=== PATIENT | male | born 1940 | race Caucasian/White ===

== ENCOUNTER 2016-12-01 07:50 | Emergency (ER) | payer MEDICARE ==
[~2016-12-01] VITALS: Ht 180.3 cm; Wt 80.0 kg
[~2016-12-01 07:50] MED LIST: ASPI325T PO
[2016-12-01 07:52] VITALS: BP 169/74; PULSE 52; RESP 20; TEMP 97.7; O2SAT 98
[2016-12-01] MEDS ORDERED: LOSA25TA PO (08:08)
[2016-12-01] MEDS ORDERED: ASPI325T PO (08:08)
[2016-12-01] MEDS ORDERED: ALPR.5 PO (08:08)
[2016-12-01] MEDS ORDERED: ARIC23TA PO (08:08)
[2016-12-01] MEDS ORDERED: RED0.25P (08:08)
[2016-12-01 09:00] VITALS: BP 119/69; PULSE 50; RESP 16; O2SAT 96
[2016-12-01 09:00] LABS: AUTOMATED NEUTROPHIL # 2.8 TH/MM3 (1.8-7.7); BASOPHIL % 0.6 % (0.0-2.0); EOSINOPHIL # 0.2 TH/MM3 (0-0.4); EOSINOPHIL % 4.8 % (0.0-4.0); HEMATOCRIT 37.7 % (39.0-51.0); HEMO FLAGS DIFF FINAL; LYMPH % 24.6 % (9.0-44.0); LYMPHOCYTE # 1.1 TH/MM3 (1.0-4.8); MEAN CELL VOLUME 90.5 FL (80.0-100.0); MEAN CORPUSCULAR HGB CONC 34.2 % (32.0-36.0); MONO % 7.7 % (0.0-8.0); NEUT % 62.3 % (16.0-70.0); PLATELET COUNT 154 TH/MM3 (150-450); RED BLOOD COUNT 4.17 MIL/MM3 (4.50-5.90); RED CELL DISTRIBUTION WIDTH 14.2 % (11.6-17.2); WHITE BLOOD COUNT 4.5 TH/MM3 (4.0-11.0)
[2016-12-01 09:13] LABS: ANION GAP 6 MEQ/L (5-15); AST (GOT) 19 U/L (15-37); BICARBONATE 24.7 MEQ/L (21.0-32.0); BLOOD UREA NITROGEN 21 MG/DL (7-18); CHLORIDE 110 MEQ/L (98-107); GLOMERULAR FILTRATION RATE 42 ML/MIN (>89); POTASSIUM 4.4 MEQ/L (3.5-5.1); SODIUM (NA) 141 MEQ/L (136-145)
[2016-12-01 09:14] LABS: ALT (GPT) 25 U/L (12-78)
[2016-12-01 09:16] LABS: ALKALINE PHOSPHATASE 81 U/L (45-117); TOTAL BILIRUBIN ADULT 0.6 MG/DL (0.2-1.0)
--- NOTE | 2016-12-01 09:16 | RADRPT ---
EXAM DATE/TIME: 12/01/2016 09:02 [facility] COMPARISON: CT NEEDLE BIOPSY ABDOMEN, July 20, 2009, 10:14. INDICATIONS : Left flank pain today. ORAL CONTRAST: No oral contrast ingested. RADIATION DOSE: 14.74 CTDIvol (mGy) MEDICAL HISTORY : ureteral mass, lymphoma, cardiovascular disease SURGICAL HISTORY : Cholecystectomy. ureteral stent ENCOUNTER: Initial ACUITY: 1 day PAIN SCALE: 7/10 LOCATION: Left flank TECHNIQUE: Volumetric scanning of the abdomen and pelvis was performed. Using automated exposure control and ad justment of the mA and/or kV according to patient size, radiation dose was kept as low as reasonably achievable to obtain optimal diagnostic quality images. DICOM format image data is available electro nically for review and comparison. FINDINGS: Numerous calcified granulomas in spleen are identified. A calcified granuloma in the liver is also no yuli. Cholecystectomy clips are present. The pancreas, adrenal glands, right kidney, left kidney unrem arkable. Urinary bladder unremarkable. Prostate is unremarkable. There is extensive diverticulosis of the sigmoid colon and descending colon. Diverticuli are also seen in the transverse and ascending co seth. Appendix is normal. There is no adenopathy or aneurysm. Atherosclerotic calcifications of the ao rta and iliac vessels are noted. Lung bases are clear. Osseous structures are intact. CONCLUSION: 1. Atherosclerosis. 2. Diverticulosis. 3. Calcified granulomas in the spleen. Norris Ordaz MD on December 01, 2016 at 9:11 Board Certified Radiologist. This report was verified electronically.
[2016-12-01 10:15] LABS: BLOOD, URINE NEG (NEG); GLUCOSE,URINE NEG (NEG); KETONE, URINE NEG (NEG); MUCUS URINE FEW /lpf (OCC); NITRITE,URINE NEG (NEG); URINE COLOR YELLOW (YELLW/STRAW)
[2016-12-01 10:16] LABS: COMMENT (UR) CULT NOT INDICATED; CULTURE IF INDICATED CULT NOT INDICATED
--- NOTE | 2016-12-01 10:21 | PD ---
HPI Chief Complaint: Flank/Kidney Pain Time Seen by Provider: 08:32 Travel History International Travel<30 days: No Contact w/Intl Traveler<30days: No Traveled to known affect area: No History of Present Illness HPI This is a 76-year-old male who has a history of follicular lymphoma who presents to the emergency department with left-sided flank pain that woke him up from sleep this morning at around 4 AM, constant, moderate severity, with no associated nausea, vomiting, fevers or chills. He denies any dysuria. She is currently in remission from his lymphoma but follows with Dr. Madden periodically. He's been struggling with vertigo recently and thought that he has Mnire's disease. His also reports he's been a little more confused over the past month. They had a CT scan performed as an outpatient which was reassuring. The patient reports that this flank pain feels similar to when he had lymphoma and a lymph node was compressing his ureter leading to hydronephrosis. PFSH Past Medical History Cancer: Yes (LYMPHOMA) Cardiovascular Problems: Yes (PATENT DUCTUS ARTERIOSUS) Chemotherapy: Yes (1ST TREATMENT 08/15/2009) Diabetes: No Diminished Hearing: No Glaucoma: No Hepatitis: Yes (HEP A B C ANTIBODIES) Hiatal Hernia: No Hypertension: No Medical other: Yes (DIVERTICULITIS) Respiratory: Yes (SINUS PROBS) Thyroid Disease: No Influenza Vaccination: Yes Past Surgical History Abdominal Surgery: No Body Medical Devices: INFUSAPORT INSERTED 08/11/09 Cardiac Surgery: No Cholecystectomy: Yes Ear Surgery: No Endocrine Surgery: No Eye Surgery: No Genitourinary Surgery: Yes (URETER STENT;REMOVED) Gynecologic Surgery: No Neurologic Surgery: No Oral Surgery: No Pacemaker: No Thoracic Surgery: No Tonsillectomy: Yes Other Surgery: Yes (MED PORT PLACEMENT;REMOVED) Social History Alcohol Use: Yes (SOCIAL) Tobacco Use: No Substance Use: No Allergies-Medications (Allergen,Severity, Reaction): Coded Allergies: No Known Allergies (Verified , 12/01/16) Reported Meds & Prescriptions Reported Meds & Active Scripts Active Reported Red Yeast Rice (Red Yeast Rice Extract) Unknown Strength Pow Unknown Dose Aricept (Donepezil) 23 Mg Tab 23 Mg PO HS Do not split, crushed or chewed. Xanax (Alprazolam) 0.5 Mg Tab 0.5 Mg PO HS Losartan (Losartan Potassium) Unknown Strength Tab Unknown Dose PO HS Aspirin 325 Mg Tab 325 Mg PO DAILY Review of Systems Except as stated in HPI: all other systems reviewed are Neg Physical Exam Narrative GENERAL:Well appearing, no acute distress SKIN: Focused skin assessment warm and dry. HEAD: Atraumatic. Normocephalic. EYES: Pupils equal and round. No injection or drainage. ENT: Moist mucous membranes NECK: Trachea midline. CARDIOVASCULAR: Regular rate and rhythm. No murmur appreciated. RESPIRATORY: Clear to auscultation. Breath sounds equal bilaterally. GASTROINTESTINAL: Abdomen soft, non-tender, nondistended. MUSCULOSKELETAL: No obvious deformities. NEUROLOGICAL: Awake and alert, does seem somewhat confused. No obvious cranial nerve deficits. Moving all extremities. PSYCHIATRIC: Appropriate mood and affect; insight and judgment normal. Data Data Last Documented VS Vital Signs Date Time Temp Pulse Resp B/P Pulse Ox O2 Delivery O2 Flow Rate FiO2 12/01/16 07:52 97.7 52 20 169/74 98 Room Air Orders Complete Blood Count With Diff (12/01/16 08:42) Comprehensive Metabolic Panel (12/01/16 08:42) Ct Abd/Pel W/O Iv Contrast (12/01/16 ) Urinalysis - C+S If Indicated (12/01/16 08:42) Labs Laboratory Tests Test 12/01/16 12/01/16 08:15 09:40 White Blood Count 4.5 TH/MM3 Red Blood Count 4.17 MIL/MM3 Hemoglobin 12.9 GM/DL Hematocrit 37.7 % Mean Corpuscular Volume 90.5 FL Mean Corpuscular Hemoglobin 31.0 PG Mean Corpuscular Hemoglobin 34.2 % Concent Red Cell Distribution Width 14.2 % Platelet Count 154 TH/MM3 Mean Platelet Volume 8.1 FL Neutrophils (%) (Auto) 62.3 % Lymphocytes (%) (Auto) 24.6 % Monocytes (%) (Auto) 7.7 % Eosinophils (%) (Auto) 4.8 % Basophils (%) (Auto) 0.6 % Neutrophils # (Auto) 2.8 TH/MM3 Lymphocytes # (Auto) 1.1 TH/MM3 Monocytes # (Auto) 0.3 TH/MM3 Eosinophils # (Auto) 0.2 TH/MM3 Basophils # (Auto) 0.0 TH/MM3 CBC Comment DIFF FINAL Differential Comment Sodium Level 141 MEQ/L Potassium Level 4.4 MEQ/L Chloride Level 110 MEQ/L Carbon Dioxide Level 24.7 MEQ/L Anion Gap 6 MEQ/L Blood Urea Nitrogen 21 MG/DL Creatinine 1.62 MG/DL Estimat Glomerular Filtration 42 ML/MIN Rate Random Glucose 90 MG/DL Calcium Level 8.7 MG/DL Total Bilirubin 0.6 MG/DL Aspartate Amino Transf 19 U/L (AST/SGOT) Alanine Aminotransferase 25 U/L (ALT/SGPT) Alkaline Phosphatase 81 U/L Total Protein 6.4 GM/DL Albumin 3.2 GM/DL Urine Color YELLOW Urine Turbidity CLEAR Urine pH 5.0 Urine Specific Scott 1.016 Urine Protein NEG mg/dL Urine Glucose (UA) NEG mg/dL Urine Ketones NEG mg/dL Urine Occult Blood NEG Urine Nitrite NEG Urine Bilirubin NEG Urine Urobilinogen LESS THAN 2.0 MG/DL Urine Leukocyte Esterase NEG Urine RBC 1 /hpf Urine WBC LESS THAN 1 /hpf Urine Mucus FEW /lpf Microscopic Urinalysis Comment CULT NOT INDICATED MDM Medical Decision Making Medical Screen Exam Complete: Yes Emergency Medical Condition: Yes Interpretation(s) afebrile, no tachycardia, hypertensin no leukocytosis anemia renal insufficiency urinalysis: no infection Last 24 hours Impressions Abdomen/Pelvis CT 12/01/16 0000 Signed Impressions: Service Date/Time: Thursday, December 01, 2016 09:02 - CONCLUSION: 1. Atherosclerosis. 2. Diverticulosis. 3. Calcified granulomas in the spleen. Norris Ordaz MD Differential Diagnosis Hydronephrosis, obstructive uropathy, nephrolithiasis, pyelonephritis, urinary tract infection Narrative Course This is a 76-year-old male who has a history of lymphoma who presents to the emergency department with left-sided flank pain that started this morning. He says it feels similar to when he had an obstructive lymph node affecting his left kidney. CT scan was obtained which demonstrates no hydronephrosis. Labs are all reassuring and urinalysis is negative for infection. He currently is without pain. He does seem a little bit confused. I expressed concern about this to his . She says this been going on for a while and they have a scheduled appointment with Dr. Madden on the of this month. I encouraged her to attend this appointment and I told him I think he needs an outpatient MRI. I offered admission for an MRI but they feel comfortable following up as an outpatient. I think this is reasonable. Patient was discharged home. Diagnosis Primary Impression: Flank pain Patient Instructions: General Instructions Additional Instructions: If you develop fever, persistent vomiting, back pain, or inability to eat return to the emergency department as your urine infection may have progressed to a kidney infection. It's very important to follow-up with Dr. Madden at your scheduled appointment. Med/Other Pt SpecificInfo: No Change to Meds Disposition: 01 DISCHARGE HOME Condition: Stable Yolis Garcia MD Dec 01, 2016 10:21
[2016-12-01 10:26] VITALS: BP 115/68; PULSE 50; RESP 18; O2SAT 96
== END 2016-12-01 10:37 | disposition home or self-care (01) ==
LOC: NEPE 07:50
DX: R10.9 Unspecified abdominal pain (principal)
CPT/HCPCS: 74176; 80053; 81001; 85025; 99284

== ENCOUNTER 2017-05-23 04:55 | Observation (INO) | payer MEDICARE ==
[2017-05-23] VITALS (8 sets, daily range): BP systolic 136–197; BP diastolic 77–101; PULSE 48–68; RESP 16–20; TEMP 97.4–98.2; O2SAT 96–98
[~2017-05-23] VITALS: Ht 180.3 cm; Wt 80.0 kg
[~2017-05-23 04:55] MED LIST changes: +ALPR.5 PO; +ARIC23TA PO; +ASPI-183 PO; -ASPI325T PO; +LOSA25TA PO; +RED0.25P
--- NOTE | 2017-05-23 05:10 | PD ---
HPI Chief Complaint: Chest Pain Time Seen by Provider: 05:05 Travel History International Travel<30 days: No Contact w/Intl Traveler<30days: No Traveled to known affect area: No History of Present Illness HPI The patient is a 77-year-old male who presents to the emergency department via EMS for chest pain. The patient states she was awakened by left- sided chest pain at approximately 4 AM. The chest pain was sharp, constant, nonradiating, and associated with diaphoresis. The patient denied any shortness of breath, nausea, or vomiting. The patient does have a history of borderline hyperlipidemia, denies any history of hypertension, diabetes, tobacco abuse, or CAD. The patient does state he had a previous stress test approximately 4-5 years ago which was negative per his report. He denies any history of cardiac catheterization or stent placement. The patient denies any fever, chills, sweats, cough, or abdominal pain. The patient states his pain improved after he was administered aspirin and nitroglycerin by EMS. The patient's primary physician is Dr. Mukund Luevano. The patient does have a history of lymphoma, unknown type, that was treated by Dr. Madden, is currently in remission. He denies any exertional symptoms. Symptoms are moderate, waking him from sleep, and were alleviated with aspirin and nitroglycerin. PFSH Past Medical History Cancer: Yes (LYMPHOMA) Cardiovascular Problems: Yes (PATENT DUCTUS ARTERIOSUS) Chemotherapy: Yes (1ST TREATMENT 08/15/2009) Diabetes: No Diminished Hearing: No Glaucoma: No Hepatitis: Yes (HEP A B C ANTIBODIES) Hiatal Hernia: No Hypertension: No Respiratory: Yes (SINUS PROBS) Thyroid Disease: No Past Surgical History Abdominal Surgery: No Body Medical Devices: INFUSAPORT INSERTED 08/11/09 Cardiac Surgery: No Cholecystectomy: Yes Ear Surgery: No Endocrine Surgery: No Eye Surgery: No Genitourinary Surgery: Yes (URETER STENT;REMOVED) Gynecologic Surgery: No Neurologic Surgery: No Oral Surgery: No Pacemaker: No Thoracic Surgery: No Tonsillectomy: Yes Other Surgery: Yes (MED PORT PLACEMENT;REMOVED) Social History Alcohol Use: Yes (SOCIAL) Tobacco Use: No Substance Use: No Allergies-Medications (Allergen,Severity, Reaction): Coded Allergies: No Known Allergies (Verified Adverse Reaction, Unknown, 05/23/17) Reported Meds & Prescriptions Reported Meds & Active Scripts Active Reported Red Yeast Rice (Red Yeast Rice Extract) Unknown Strength Pow Unknown Dose Aricept (Donepezil) 23 Mg Tab 23 Mg PO HS Do not split, crushed or chewed. Xanax (Alprazolam) 0.5 Mg Tab 0.5 Mg PO HS Aspirin 325 Mg Tab 325 Mg PO DAILY Review of Systems Except as stated in HPI: all other systems reviewed are Neg General / Constitutional: No: Fever, Chills HENT: No: Lightheadedness Cardiovascular: Positive: Chest Pain or Discomfort, Diaphoresis, No: Dyspnea on exertion Respiratory: No: Shortness of Breath Gastrointestinal: No: Nausea, Vomiting Musculoskeletal: No: Weakness Neurologic: No: Dizziness Physical Exam Narrative GENERAL: Awake, alert, pleasant 77-year-old male who appears his stated age and is in no acute respiratory distress. SKIN: Focused skin assessment warm/dry. HEAD: Atraumatic. Normocephalic. EYES: Pupils equal and round. No scleral icterus. No injection or drainage. ENT: No nasal bleeding or discharge. Mucous membranes pink and moist. NECK: Trachea midline. No JVD. CARDIOVASCULAR: Regular, bradycardic with a heart rate in the 50s. No murmur appreciated. Palpation the chest wall does not reproduce symptoms. RESPIRATORY: No accessory muscle use. Clear to auscultation. Breath sounds equal bilaterally. GASTROINTESTINAL: Abdomen soft, non-tender, nondistended. No epigastric tenderness. No guarding or rigidity. MUSCULOSKELETAL: No obvious deformities. No clubbing. No cyanosis. No edema. NEUROLOGICAL: Awake and alert. No obvious cranial nerve deficits. Motor grossly within normal limits. Normal speech. Alert and oriented 4. Follows as without difficulty. PSYCHIATRIC: Appropriate mood and affect; insight and judgment normal. Data Data Last Documented VS Vital Signs Date Time Temp Pulse Resp B/P (MAP) Pulse Ox O2 Delivery O2 Flow Rate FiO2 05/23/17 05:13 47 16 96 Room Air 05/23/17 05:10 155/92 (113) 163/96 (118) 05/23/17 05:04 98.0 Orders Orders Electrocardiogram (05/23/17 05:05) Ckmb (Isoenzyme) Profile (05/23/17 05:05) Complete Blood Count With Diff (05/23/17 05:05) Comprehensive Metabolic Panel (05/23/17 05:05) Magnesium (Mg) (05/23/17 05:05) Prothrombin Time / Inr (Pt) (05/23/17 05:05) Act Partial Throm Time (Ptt) (05/23/17 05:05) Troponin I (05/23/17 05:05) Lipase (05/23/17 05:05) Chest, Single Ap (05/23/17 05:05) Ecg Monitoring (05/23/17 05:05) Bilateral Bp Monitoring (05/23/17 05:05) Iv Access Insert/Monitor (05/23/17 05:05) Oximetry (05/23/17 05:05) Oxygen Administration (05/23/17 05:05) Sodium Chloride 0.9% Flush (Ns Flush) (05/23/17 05:15) Labs Laboratory Tests Test 05/23/17 05:15 White Blood Count 3.9 TH/MM3 Red Blood Count 4.08 MIL/MM3 Hemoglobin 12.4 GM/DL Hematocrit 37.0 % Mean Corpuscular Volume 90.8 FL Mean Corpuscular Hemoglobin 30.4 PG Mean Corpuscular Hemoglobin Concent 33.5 % Red Cell Distribution Width 14.3 % Platelet Count 121 TH/MM3 Mean Platelet Volume 7.6 FL Neutrophils (%) (Auto) 53.3 % Lymphocytes (%) (Auto) 28.5 % Monocytes (%) (Auto) 11.2 % Eosinophils (%) (Auto) 6.3 % Basophils (%) (Auto) 0.7 % Neutrophils # (Auto) 2.1 TH/MM3 Lymphocytes # (Auto) 1.1 TH/MM3 Monocytes # (Auto) 0.4 TH/MM3 Eosinophils # (Auto) 0.2 TH/MM3 Basophils # (Auto) 0.0 TH/MM3 CBC Comment DIFF FINAL Differential Comment Prothrombin Time 10.2 SEC Prothromb Time International Ratio 1.0 RATIO Activated Partial Thromboplast Time 25.2 SEC Blood Urea Nitrogen 25 MG/DL Creatinine 1.63 MG/DL Random Glucose 88 MG/DL Total Protein 5.8 GM/DL Albumin 3.0 GM/DL Calcium Level 8.1 MG/DL Magnesium Level 2.1 MG/DL Alkaline Phosphatase 60 U/L Aspartate Amino Transf (AST/SGOT) 15 U/L Alanine Aminotransferase (ALT/SGPT) 28 U/L Total Bilirubin 0.3 MG/DL Sodium Level 142 MEQ/L Potassium Level 3.8 MEQ/L Chloride Level 111 MEQ/L Carbon Dioxide Level 23.6 MEQ/L Anion Gap 7 MEQ/L Estimat Glomerular Filtration Rate 41 ML/MIN Total Creatine Kinase 63 U/L Troponin I LESS THAN 0.02 NG/ML Lipase 132 U/L Exceptions Acute Myocardial Infarction ASA Not Given on Arrival: Already Given by EMS MDM Medical Decision Making Medical Screen Exam Complete: Yes Emergency Medical Condition: Yes Medical Record Reviewed: Yes Interpretation(s) EKG reveals sinus bradycardia with a heart rate of 45. No ischemic changes noted. Laboratory Tests Test 05/23/17 05:15 White Blood Count 3.9 TH/MM3 Red Blood Count 4.08 MIL/MM3 Hemoglobin 12.4 GM/DL Hematocrit 37.0 % Mean Corpuscular Volume 90.8 FL Mean Corpuscular Hemoglobin 30.4 PG Mean Corpuscular Hemoglobin Concent 33.5 % Red Cell Distribution Width 14.3 % Platelet Count 121 TH/MM3 Mean Platelet Volume 7.6 FL Neutrophils (%) (Auto) 53.3 % Lymphocytes (%) (Auto) 28.5 % Monocytes (%) (Auto) 11.2 % Eosinophils (%) (Auto) 6.3 % Basophils (%) (Auto) 0.7 % Neutrophils # (Auto) 2.1 TH/MM3 Lymphocytes # (Auto) 1.1 TH/MM3 Monocytes # (Auto) 0.4 TH/MM3 Eosinophils # (Auto) 0.2 TH/MM3 Basophils # (Auto) 0.0 TH/MM3 CBC Comment DIFF FINAL Differential Comment Prothrombin Time 10.2 SEC Prothromb Time International Ratio 1.0 RATIO Activated Partial Thromboplast Time 25.2 SEC Blood Urea Nitrogen 25 MG/DL Creatinine 1.63 MG/DL Random Glucose 88 MG/DL Total Protein 5.8 GM/DL Albumin 3.0 GM/DL Calcium Level 8.1 MG/DL Magnesium Level 2.1 MG/DL Alkaline Phosphatase 60 U/L Aspartate Amino Transf (AST/SGOT) 15 U/L Alanine Aminotransferase (ALT/SGPT) 28 U/L Total Bilirubin 0.3 MG/DL Sodium Level 142 MEQ/L Potassium Level 3.8 MEQ/L Chloride Level 111 MEQ/L Carbon Dioxide Level 23.6 MEQ/L Anion Gap 7 MEQ/L Estimat Glomerular Filtration Rate 41 ML/MIN Total Creatine Kinase 63 U/L Troponin I LESS THAN 0.02 NG/ML Lipase 132 U/L Chest x-ray unremarkable Differential Diagnosis Differential diagnoses includes ACS, STEMI, pleurisy, pneumonia, pleural effusion, pulmonary embolism, costochondritis, neuralgia. Narrative Course IV was established, labs are drawn and sent, and the patient was placed on cardiac telemetry monitoring and continuous pulse oximetry monitoring. EKG was ordered and interpreted. Chest x-ray was obtained. The patient received aspirin and nitroglycerin prior to arrival, was chest pain-free upon arrival. Chest x-rays unremarkable. Initial troponin is less than 0.02. Patient does have several risk factors, male, age 77, history of borderline hyperlipidemia. The patient's chest pain did improve with aspirin and nitroglycerin, he will be a 23 hour observation to the chest pain Center. The patient is comfortable with this plan of care and disposition. Physician Communication Physician Communication The patient will be 23 hour observation to the chest pain center for serial cardiac enzymes and further evaluation by cardiology for possible stress test. Diagnosis Primary Impression: Chest pain Qualified Codes: R07.9 - Chest pain, unspecified Admitting Information Admitting Physician Requests: Observation Condition: Stable Omar Gomez MD May 23, 2017 05:10
[2017-05-23] MEDS ORDERED: SODIUM CHLORIDE 0.9% FLUSH 10 ML FLUSH IVF PRN (05:15)
[2017-05-23 05:25] LABS: AUTOMATED NEUTROPHIL # 2.1 TH/MM3 (1.8-7.7); BASOPHIL % 0.7 % (0.0-2.0); EOSINOPHIL # 0.2 TH/MM3 (0-0.4); EOSINOPHIL % 6.3 % (0.0-4.0); HEMOGLOBIN 12.4 GM/DL (13.0-17.0); LYMPH % 28.5 % (9.0-44.0); LYMPHOCYTE # 1.1 TH/MM3 (1.0-4.8); MEAN CELL VOLUME 90.8 FL (80.0-100.0); MEAN CORPUSCULAR HEMOGLOBIN 30.4 PG (27.0-34.0); MEAN CORPUSCULAR HGB CONC 33.5 % (32.0-36.0); MEAN PLATELET VOLUME 7.6 FL (7.0-11.0); MONO % 11.2 % (0.0-8.0); MONOCYTE # 0.4 TH/MM3 (0-0.9); NEUT % 53.3 % (16.0-70.0); PLATELET COUNT 121 TH/MM3 (150-450); RED BLOOD COUNT 4.08 MIL/MM3 (4.50-5.90); RED CELL DISTRIBUTION WIDTH 14.3 % (11.6-17.2); WHITE BLOOD COUNT 3.9 TH/MM3 (4.0-11.0)
[2017-05-23 05:35] LABS: PROTHROMBIN TIME - PATIENT 10.2 SEC (9.8-11.6)
[2017-05-23 05:43] LABS: ALT (GPT) 28 U/L (12-78); AST (GOT) 15 U/L (15-37); BICARBONATE 23.6 MEQ/L (21.0-32.0); BLOOD UREA NITROGEN 25 MG/DL (7-18); CALCIUM 8.1 MG/DL (8.5-10.1); CHLORIDE 111 MEQ/L (98-107); CREATININE 1.63 MG/DL (0.60-1.30); GLOMERULAR FILTRATION RATE 41 ML/MIN (>89); GLUCOSE,RANDOM 88 MG/DL (74-106); LIPASE 132 U/L (73-393); MAGNESIUM 2.1 MG/DL (1.5-2.5); SODIUM (NA) 142 MEQ/L (136-145)
[2017-05-23 05:47] LABS: ALKALINE PHOSPHATASE 60 U/L (45-117); TOTAL BILIRUBIN ADULT 0.3 MG/DL (0.2-1.0); TOTAL PROTEIN 5.8 GM/DL (6.4-8.2); TROPONIN I LESS THAN 0.02 NG/ML (0.02-0.05)
[2017-05-23] MEDS ORDERED: ACETAMINOPHEN 500 MG CPLT PO PRN (06:00)
[2017-05-23] MEDS ORDERED: MORPHINE SULFATE 2 MG/ML INJ IV PUSH PRN (06:00)
[2017-05-23] MEDS ORDERED: ONDANSETRON HCL 4 MG/2 ML VIAL IV PUSH PRN (06:00)
[2017-05-23] MEDS ORDERED: SODIUM CHLORIDE 0.9% FLUSH 10 ML FLUSH IV FLUSH PRN (06:00)
[2017-05-23] MEDS ORDERED: ACETAMINOPHEN/HYDROcodone 325 MG/7.5 MG TAB PO PRN (06:00)
[2017-05-23] MEDS ORDERED: NITROGLYCERIN 0.4 MG SL 25 TABS/BTL SL PRN (06:00)
--- NOTE | 2017-05-23 06:33 | RADRPT ---
EXAM DATE/TIME: 05/23/2017 05:22 [facility] COMPARISON: CHEST PA & LAT, August 02, 2011, 9:43. INDICATIONS : Chest pain. MEDICAL HISTORY : ureteral mass, lymphoma, cardiovascular disease SURGICAL HISTORY : Cholecystectomy. ureteral stent ENCOUNTER: Initial ACUITY: 1 day PAIN SCORE: 8/10 LOCATION: Left chest FINDINGS: A single view of the chest demonstrates the lungs to be symmetrically aerated without evidence of mas s, infiltrate or effusion. The cardiomediastinal contours are unremarkable. Osseous structures are intact. CONCLUSION: No acute disease. Harley Mosqueda MD on May 23, 2017 at 6:30 Board Certified Radiologist. This report was verified electronically.
[2017-05-23] MEDS ORDERED: ASPIRIN 325 MG TAB PO SCH (09:00)
[2017-05-23] MEDS ORDERED: SODIUM CHLORIDE 0.9% FLUSH 10 ML FLUSH IV FLUSH SCH (09:00)
[2017-05-23 09:24] LABS: TROPONIN I LESS THAN 0.02 NG/ML (0.02-0.05)
[2017-05-23] MEDS ORDERED: DIVA500T3 PO (09:28)
[2017-05-23] MEDS ORDERED: DONE10TA7 PO (09:30)
[2017-05-23] MEDS ORDERED: THERTAB17 PO (09:31)
--- NOTE | 2017-05-23 09:31 | HHI.HP ---
[facility] Primary Care Physician Mukund Moody MD Chief Complaint Chest pain History of Present Illness This is a 37-year-old male that presents to ED via ambulance with history of hypertension, hyperlipidemia, chronic renal insufficiency, follicular lymphoma grade 1 and currently in remission with a complaint of being awoken at 4:00 this morning with a left-sided chest discomfort. Radiated down his left arm. He is diaphoretic. It is sharp. His worst pain is ever had. [facility] arrived within 20 minutes. The given subluminal nitroglycerin which seemed to help very quickly. Cannot say exactly how long the discomfort lasted. Denies history of CAD. Apparently had a stress test about 5 years ago and the really is not sure the results with states he never had a cardiac catheterization. He was placed on statin therapy but did not tolerate any other statins. Denies recent illness. Denies fevers or chills. Review of Systems General: Patient denies fevers, chills recent, and recent travel HEENT: Patient denies headache, sore throat, difficulty swallowing. Cardiovascular: Has the chest discomfort as mentioned above. Denies sensation of heart beating rapidly or irregularly. No syncope. He was diaphoretic. Respiratory: Denies shortness of breath or inspirational chest discomfort. Denies coughing wheezing or hemoptysis. GI: Patient denies nausea, vomiting, diarrhea, abdominal pain, bloody stools. Musculoskeletal: Patient denies joint pain or edema. Denies calf pain or edema. Neurovascular: Patient denies numbness, tingling, weakness in extremities. Denies headache. Endocrine: Denies polyuria and polydipsia. Hematologic: Denies easy bruising. Skin: Denies rash or itching. Past Family Social History Allergies: Coded Allergies: No Known Allergies (Verified Allergy, Unknown, 05/23/17) Past Medical History Hypertension however currently not taking medication. Hyperlipidemia and does not tolerate statin. He is on red yeast rice. Chronic renal insufficiency, history of follicular lymphoma grade 1 and is now on remission. Denies diabetes and known CAD. Past Surgical History Tonsillectomy. Ureter stent and then subsequently removed. Reported Medications Reported Meds & Active Scripts Active Reported Red Yeast Rice (Red Yeast Rice Extract) Unknown Strength Pow Unknown Dose Aricept (Donepezil) 23 Mg Tab 23 Mg PO HS Do not split, crushed or chewed. Xanax (Alprazolam) 0.5 Mg Tab 0.5 Mg PO HS Aspirin 325 Mg Tab 325 Mg PO DAILY Active Ordered Medications Current Medications Medications (Trade) Dose Ordered Sig/Floyd Route Start Time Stop Time Status Last Admin (NS Flush) 2 ml UNSCH PRN IV FLUSH 05/23/17 06:00 (NS Flush) 2 ml BID IV FLUSH 05/23/17 09:00 05/23/17 08:27 (Tylenol) 500 mg Q4H PRN PO 05/23/17 06:00 (Garrison 7.5-325 Mg) 1 tab Q4H PRN PO 05/23/17 06:00 (Morphine Inj) 2 mg Q4H PRN IV PUSH 05/23/17 06:00 (Zofran Inj) 4 mg Q6H PRN IV PUSH 05/23/17 06:00 (Nitrostat Sl) 0.4 mg Q5M PRN SL 05/23/17 06:00 (Aspirin) 325 mg DAILY PO 05/23/17 09:00 05/23/17 08:27 Family History There is family history of CAD. Social History Doesn't smoke. Rare alcohol. Denies illicit drugs. Physical Exam Vital Signs Vital Signs Date Time Temp Pulse Resp B/P (MAP) Pulse Ox O2 Delivery O2 Flow Rate FiO2 05/23/17 07:21 98 21 05/23/17 06:42 97.4 48 16 154/86 (108) 98 05/23/17 06:22 05/23/17 06:04 98 21 05/23/17 05:13 47 16 96 Room Air 05/23/17 05:10 50 16 155/92 (113) 98 Room Air 163/96 (118) 05/23/17 05:07 98 Room Air 05/23/17 05:07 98 Room Air 05/23/17 05:04 98.0 52 18 169/101 (123) 97 Physical Exam GENERAL: This is a well-nourished, well-developed patient, in no apparent distress. Patient speaks in clear complete sentences. Patient is pleasant. HEENT: Head is atraumatic and normocephalic. Neck is supple without lymphadenopathy and trachea is midline. No JVD or carotid bruits. CARDIOVASCULAR: Regular rate and rhythm without murmurs, gallops, or rubs. RESPIRATORY: Clear to auscultation. Breath sounds equal bilaterally. No wheezes , rales, or rhonchi. Chest wall is nontender. No use of accessory muscles. GASTROINTESTINAL: Abdomen is nontender, nondistended. Abdomen soft. No obvious pulsatile mass or bruit. No CVA tenderness. Strong femoral pulses bilaterally. Normal bowel sounds in all quadrants. MUSCULOSKELETAL: Patient is moving upper and lower extremities freely. No calf tenderness or edema, no Homans sign. Strong pulses in upper and lower extremities. NEUROLOGICAL: Patient is alert and oriented. Cranial nerves 2-12 are grossly intact. No focal deficits and speech is clear. SKIN: No rash and turgor is normal. Laboratory Laboratory Tests Test 05/23/17 05:15 05/23/17 08:30 White Blood Count 3.9 Red Blood Count 4.08 Hemoglobin 12.4 Hematocrit 37.0 Mean Corpuscular Volume 90.8 Mean Corpuscular Hemoglobin 30.4 Mean Corpuscular Hemoglobin Concent 33.5 Red Cell Distribution Width 14.3 Platelet Count 121 Mean Platelet Volume 7.6 Neutrophils (%) (Auto) 53.3 Lymphocytes (%) (Auto) 28.5 Monocytes (%) (Auto) 11.2 Eosinophils (%) (Auto) 6.3 Basophils (%) (Auto) 0.7 Neutrophils # (Auto) 2.1 Lymphocytes # (Auto) 1.1 Monocytes # (Auto) 0.4 Eosinophils # (Auto) 0.2 Basophils # (Auto) 0.0 CBC Comment DIFF FINAL Differential Comment Prothrombin Time 10.2 Prothromb Time International Ratio 1.0 Activated Partial Thromboplast Time 25.2 Blood Urea Nitrogen 25 Creatinine 1.63 Random Glucose 88 Total Protein 5.8 Albumin 3.0 Calcium Level 8.1 Magnesium Level 2.1 Alkaline Phosphatase 60 Aspartate Amino Transf (AST/SGOT) 15 Alanine Aminotransferase (ALT/SGPT) 28 Total Bilirubin 0.3 Sodium Level 142 Potassium Level 3.8 Chloride Level 111 Carbon Dioxide Level 23.6 Anion Gap 7 Estimat Glomerular Filtration Rate 41 Total Creatine Kinase 63 Troponin I LESS THAN 0.02 Lipase 132 Result Diagram: 05/23/1715 05/23/17 0515 Imaging Last 48 hours Impressions Chest X-Ray 05/23/17 0736 Signed Impressions: Service Date/Time: Tuesday, May 23, 2017 05:22 - CONCLUSION: No acute disease. Harley Mosqueda MD Course EKGs: First 2 EKGs have sinus bradycardia rate of [address] segment depressions or elevations. Caprini VTE Risk Assessment Caprini VTE Risk Assessment: Mod/High Risk (score >= 2) Caprini Risk Assessment Model Point Value = 1 Point Value = 2 Point Value = 3 Point Value = 5 Age 41-60 Minor surgery BMI > 25 kg/m2 Swollen legs Varicose veins or History of unexplained or recurrent spontaneous Oral contraceptives or hormone replacement Sepsis (< 1 month) Serious lung disease, including pneumonia (< 1 month) Abnormal pulmonary function Acute myocardial infarction Congestive heart failure (< 1 month) History of inflammatory bowel disease Medical patient at bed rest Age 61-74 Arthroscopic surgery Major open surgery (> 45 min) Laparoscopic surgery (> 45 min) Malignancy Confined to bed (> 72 hours) Immobilizing plaster cast Central venous access Age >= 75 History of VTE Family history of VTE Factor V Leiden Prothrombin [id number] Lupus anticoagulant Anticardiolipin antibodies Elevated serum homocysteine Heparin-induced thrombocytopenia Other congenital or acquired thrombophilia Stroke (< 1 month) Elective arthroplasty Hip, pelvis, or leg fracture Acute spinal cord injury (< 1 month) Prophylaxis Regimen Total Risk Factor Score Risk Level Prophylaxis Regimen 0-1 Low Early ambulation 2 Moderate Order ONE of the following: *Sequential Compression Device (SCD) *Heparin 5000 units SQ BID 3-4 Higher Order ONE of the following medications: *Heparin 5000 units SQ TID *Enoxaparin/Lovenox 40 mg SQ daily (WT < 150 kg, CrCl > 30 mL/min) *Enoxaparin/Lovenox 30 mg SQ daily (WT < 150 kg, CrCl > 10-29 mL/min) *Enoxaparin/Lovenox 30 mg SQ BID (WT < 150 kg, CrCl > 30 mL/min) AND/OR *Sequential Compression Device (SCD) 5 or more Highest Order ONE of the following medications: *Heparin 5000 units SQ TID (Preferred with Epidurals) *Enoxaparin/Lovenox 40 mg SQ daily (WT < 150 kg, CrCl > 30 mL/min) *Enoxaparin/Lovenox 30 mg SQ daily (WT < 150 kg, CrCl > 10-29 mL/min) *Enoxaparin/Lovenox 30 mg SQ BID (WT < 150 kg, CrCl > 30 mL/min) AND *Sequential Compression Device (SCD) Assessment and Plan Assessment and Plan * Chest pain: Patient has seconds cardiac enzyme pending. He was seen by Dr. Saeid Treadwell of cardiology and the chest pain center. If his second troponin is normal he will then have a Lexiscan. Disposition pending the results of Lexiscan. Patient is to follow PCP. Return to ED for interval issues. * Hypertension: Patient's states that the medication was discontinued. States he did not need lisinopril any longer. They should keep a journal of his blood pressure readings and discuss further with PCP. * Hyperlipidemia: Continues medication. states he was unable tolerate statin therapy. He should follow-up with PCP regarding this. * Chronic renal insufficiency: Patient needs follow-up with PCP. Patient is stable at this time. He is agreeable to this plan. Alan Mathur May 23, 2017 09:30
[2017-05-23] MEDS ORDERED: cloNIDine HCL 0.1 MG TAB PO PRN (10:30)
[2017-05-23] MEDS ORDERED: REGADENOSON INJ 0.4 MG/5 ML SYR ONE (10:58)
[2017-05-23] MEDS ORDERED: DIVALPROEX SODIUM E.R. 500 MG TAB PO SCH (12:00)
--- NOTE | 2017-05-23 12:24 | RADRPT ---
EXAM DATE/TIME: 05/23/2017 10:50 [facility] COMPARISON: No previous studies available for comparison. INDICATIONS : Left sided chest pain radiating to left arm. Angina. DOSE: 25.2 mCi Tc99m Myoview at stress. 8.5 mCi Tc99m Myoview at rest. 0.4 mg Lexiscan STRESS SYMPTOMS: Dyspnea and nausea. EJECTION FRACTION: 60% MEDICAL HISTORY : Lymphoma. Hypertension. Diabetes mellitus type 2. SURGICAL HISTORY : Tonsillectomy. ENCOUNTER: Initial ACUITY: 1 day PAIN SCALE: 6/10 LOCATION: Left chest TECHNIQUE: The patient underwent pharmacologic stress with infusion of prescribed dose. Continuous ECG tracing was monitored during stress. Gated SPECT imaging was performed after stress and conventional SPECT i maging was performed at rest. The examination was performed on a SPECT/CT scanner, both attenuation and non-corrected datasets were reviewed. FINDINGS: DISTRIBUTION: The maximum perfused segment at stress is in the lateral wall. PERFUSION STUDY: The pattern of perfusion at stress is within normal limits. GATED STUDY: There is intact wall motion and thickening without hypokinetic or dyskinetic segments. CONCLUSION: 1. No significant reversibility to suggest ischemia. 2. Normal wall motion with ejection fraction 60%. RISK CATEGORY: Low (<1% Annual Mortality Rate) Venkat Luo MD on May 23, 2017 at 12:20 Board Certified Radiologist. This report was verified electronically.
[2017-05-23 14:18] LABS: TROPONIN I LESS THAN 0.02 NG/ML (0.02-0.05)
--- NOTE | 2017-05-23 14:20 | EKG ---
Date Performed: 05/23/2017 Time Performed: 08:43:54 PTAGE: 77 years EKG: SINUS BRADYCARDIA BORDERLINE ECG INTERPRETATION BASED ON A DEFAULT AGE OF 40 YEARS PREVIOUS TRACING : 05/23/2017 05.04 Since previous tracing, no significant change noted DOCTOR: Saeid Treadwell Interpretating Date/Time 05/23/2017 14:18:29
--- NOTE | 2017-05-23 14:20 | EKG ---
Date Performed: 05/23/2017 Time Performed: 05:04:54 PTAGE: 77 years EKG: SINUS BRADYCARDIA BORDERLINE ECG NO PREVIOUS TRACING DOCTOR: Saeid Treadwell Interpretating Date/Time 05/23/2017 14:18:48
--- NOTE | 2017-05-23 14:23 | TR ---
Date Performed: 05/23/2017 Time Performed: 11:13:00 DOCTOR: Saeid Treadwell DRUG LIST: CLINICAL HISTORY: CHEST PAIN REASON FOR TEST: CHEST PAIN REASON FOR ENDING: OBSERVATION: CONCLUSION: Lexiscan stress test was performed under standard four minute protocol. Radionuclid e was injected one minute prior to ending the test. No electrocardiographic abormalities were present to suggest ischemia. Nuclear imaging and interpretation are pending. COMMENTS:
--- NOTE | 2017-05-23 15:14 | RADRPT ---
EXAM DATE/TIME: 05/23/2017 14:52 [facility] COMPARISON: No previous studies available for comparison. INDICATIONS : Evaluate aneurysm. RADIATION DOSE: 5.40 CTDIvol (mGy) MEDICAL HISTORY : Cardiovascular disease. Lymphoma. SURGICAL HISTORY : None. ENCOUNTER: Initial ACUITY: 1 day PAIN SCALE: 0/10 LOCATION: chest TECHNIQUE: Volumetric scanning of the chest was performed. Using automated exposure control and adjustment of t he mA and/or kV according to patient size, radiation dose was kept as low as reasonably achievable to obtain optimal diagnostic quality images. DICOM format image data is available electronically for r eview and comparison. Follow-up recommendations for detected pulmonary nodules are based at a minimum on nodule size and pa tient risk factors according to Fleischner Society Guidelines. FINDINGS: LUNGS: 6 mm calcified nodule in the right middle lobe. Additional 4 mm nodule noted more anteriorly. PLEURAE: There is no pleural thickening or pleural effusion. MEDIASTINUM: Calcified right hilar lymph nodes. Moderate coronary calcifications. Heart is otherwise unremarkable without pericardial effusion. Ascending thoracic aorta measures 4.8 cm in AP dimension. The proximal thoracic arch measures 4.5 cm. The distal thoracic arch measures 3.9 cm. The descending thoracic aort a measures 3.2 cm. AXILLAE: Within normal limits. No lymphadenopathy. MUSCULOSKELETAL: Within normal limits for patient age. MISCELLANEOUS: The visualized upper abdominal organs demonstrate no acute abnormality. CONCLUSION: 1. Fusiform ascending thoracic aortic aneurysm measuring up to 4.8 cm in AP dimension. Thoracic arch is also mildly aneurysmal measuring up to 4.5 cm proximally and 3.9 cm distally. Descending thoracic aorta is mildly ectatic measuring up to 3.2 cm. No significant mediastinal hematoma. 2. Coronary artery calcifications. 3. Right middle lobe granulomas with calcified right hilar nodes. Nik Norman MD on May 23, 2017 at 15:06 Board Certified Radiologist. This report was verified electronically.
--- NOTE | 2017-05-23 15:39 | HHI.DCPOC ---
Discharge Care Plan Diagnosis: (1) Chest pain (2) Hypertension (3) Hyperlipidemia (4) Chronic renal insufficiency (5) Thoracic aortic aneurysm (6) Lung nodule Goals to Promote Your Health * To prevent worsening of your condition and complications * To maintain your health at the optimal level Directions to Meet Your Goals Take your medications as prescribed Follow your dietary instruction Follow activity as directed Keep your appointments as scheduled Take your immunizations and boosters as scheduled If your symptoms worsen call your PCP, if no PCP go to Urgent Care Center or Emergency Room Smoking is Dangerous to Your Health. Avoid second hand smoke Call the 24-hour hour crisis hotline for domestic abuse at Alan Mathur May 23, 2017 15:39
[2017-05-23] MEDS ORDERED: DONEPEZIL HCL 5 MG TAB PO SCH (21:00)
[2017-05-23] MEDS ORDERED: ALPRAZolam 0.5 MG TAB PO SCH (21:00)
[2017-05-24] MEDS ORDERED: ASPIRIN 325 MG TAB PO SCH (09:00)
[2017-05-24] MEDS ORDERED: INFLUENZA VIRUS VACCINE (QUADRIVALENT) 0.5 ML SYR IM ONE (10:00)
== END 2017-05-23 17:40 | disposition home or self-care (01) ==
LOC: NEPE 04:55 → NEDA 06:00 → NEPGCP 06:31
DX: R07.89 Other chest pain (principal); R61 Generalized hyperhidrosis; R00.1 Bradycardia, unspecified; R06.00 Dyspnea, unspecified; R11.0 Nausea; I12.9 Hypertensive chronic kidney disease with stage 1 through stage 4 chronic kidney disease, or unspecified chronic kidney disease; N18.4 Chronic kidney disease, stage 4 (severe); E78.5 Hyperlipidemia, unspecified; Z85.72 Personal history of non-Hodgkin lymphomas; Z79.82 Long term (current) use of aspirin
CPT/HCPCS: 71010; 71250; 78452; 80053; 82550; 83690; 83735; 84484; 85025; 85610; 85730; 93005; 93017; 99285; A9502; G0378; J2785

== ENCOUNTER 2018-03-29 07:47 | Inpatient (IN) ==
[2018-03-29] MEDS ORDERED: Acetaminophen 325 MG Tablet PO ONE (08:30)
[2018-03-29] MEDS ORDERED: Sod Chloride 0.9% Inj 1,000 ML IV.SIG ONE (08:30)
[2018-03-29] MEDS ORDERED: Morphine Sulfate Inj 8 MG/ML Vial IV.PUSH ONE (08:30)
--- NOTE | 2018-03-29 08:38 | ED ---
HPI General Chief Complaint: Respiratory Symptoms Stated Complaint: Medical Time Seen by Provider: 03/29/18 08:17 Source: patient Mode of arrival: ambulatory Limitations: no limitations History of Present Illness HPI Narrative: The patient is a 77-year-old male who presents to the emergency department for headache. The patient has a history of vascular migraines that was diagnosed by his neurologist, Dr. Conti. The patient is currently on valproic acid for his migraines. However, the patient developed a bilateral frontal dull headache that is been constant yesterday and progressive. The patient denies any photophobia, but does note difficulty seeing out of his eyes with decreased ability to see while reading. He denies any nausea, vomiting, neck pain, or focal deficits. The patient also notes a history of bladder cancer that is followed by his urologist, Dr. Santiago and his oncologist, Dr. Mdaden. The patient recently had an internal stent placed to the left kidney as well as an external stent placed. The patient saw his urologist last week, Dr. Santiago, who removed the bag from the external stent. The patient has also been having rectal pain and saw his colorectal surgeon last week, Dr. Goode, who stated he had an enlarged left prostate that could be causing his pain. He denies any acute abdominal pain. He does complain of mild discomfort with urinating, but did recently have a procedure performed and Wilson catheter in place. The patient's symptoms are moderate. MD Complaint: Reports headache Onset (ago): day(s) Onset description: gradual Location: Reports right, left, frontal and temporal Severity: similar to previous episodes Severity scale (1-10): 5 Quality: Reports dull and constant Relieving factors: nothing Exacerbating factors: none Context: Reports occurred at rest Associated symptoms: Reports confusion Treatments prior to arrival: Reports migraine medication Related Data Home Medications Medication Instructions Recorded Confirmed alprazolam [Xanax] 0.25 mg PO DAILY 03/17/18 03/29/18 divalproex 500 mg PO DAILY 03/17/18 03/29/18 donepezil 10 mg PO DAILY 03/17/18 03/29/18 acetaminophen 500 mg PO Q6H PRN 03/29/18 03/29/18 hydrocodone-acetaminophen 0.5 tab PO Q3H PRN 03/29/18 03/29/18 Allergies Allergy/AdvReac Type Severity Reaction Status Date / Time No Known Allergies Allergy Verified 03/29/18 08:13 Review of Systems ROS: all other systems reviewed are negative [facility] Social History Social History Substance History: No History of Abuse Second Hand Smoke Exposure: No Smoking Status: Former smoker How Often Do You Have a Drink Containing Alcohol: Monthly or less Recent Travel in [facility] within the Last 8 Weeks: No Recent Out of Country Travel within the Last 8 Weeks: No Immunization History Tetanus Immunization: Unsure Exam Narrative Exam Narrative: GENERAL: Awake, alert, 77-year-old male who appears his stated age and is in no acute respiratory distress. SKIN: Focused skin assessment warm/dry. HEAD: Atraumatic. Normocephalic. EYES: Pupils equal and round. 3 mm bilateral and reactive. EOMs are intact. Patient is able to see fingers at a distance of 2 feet without difficulty. ENT: No nasal bleeding or discharge. Mucous membranes pink and moist. No tenderness of the maxillary or frontal sinuses. NECK: Trachea midline. No JVD. No meningeal signs. CARDIOVASCULAR: Regular rate and rhythm. No murmur appreciated. Heart rate in the 80s per RESPIRATORY: No accessory muscle use. Clear to auscultation. Breath sounds equal bilaterally. GASTROINTESTINAL: Abdomen soft, non-tender, nondistended. No guarding or rigidity. Back: External nephrostomy stent in place, no bag in place. No drainage. MUSCULOSKELETAL: No obvious deformities. No clubbing. No cyanosis. No edema. NEUROLOGICAL: Awake and alert. No obvious cranial nerve deficits. Motor grossly within normal limits. Normal speech. Oriented to person and place. Follows commands without difficulty. Nonfocal on exam. PSYCHIATRIC: Appropriate mood and affect; insight and judgment normal. Course Initial Documented Vital Signs Temperature 97.8 F 03/29/18 07:49 Pulse Rate 109 H 03/29/18 07:49 Respiratory Rate 24 03/29/18 07:49 Blood Pressure 143/96 H 03/29/18 07:49 Pulse Oximetry 96 03/29/18 07:49 Last Documented Vital Signs Temperature 97.8 F 03/29/18 07:49 Pulse Rate 109 H 03/29/18 07:49 Respiratory Rate 24 03/29/18 07:49 Blood Pressure 143/96 H 03/29/18 07:49 Pulse Oximetry 96 03/29/18 07:49 Medical Decision Making MDM Narrative Medical decision making narrative: IV was established, labs are drawn and sent, and the patient was placed on cardiac telemetry monitoring and continuous pulse oximetry monitoring. CT of the brain was obtained. KUB was obtained for stent placement. UA was sent to lab. The patient was administered morphine, Reglan, Tylenol, and IV fluids for his headache. CT of the brain is positive for possible subacute infarct, may explain the patient's vision changes, however, most likely does not explain the headache. The patient was administered aspirin. The patient's KUB reveals a stent in place. Creatinine is elevated, however, is normally elevated. Appears to be at baseline. Ammonia level was normal, Depakote level is 30. The patient will be admitted to the on-call medical service and may benefit from MRI and neurology evaluation. The on-call medical team was paged for admission. Medical Screen Exam Complete: Yes Emergency Medical Condition: Yes Differential Diagnosis Differential Diagnosis: Differential diagnosis includes vascular migraine, sinusitis, subdural hemorrhage, subarachnoid hemorrhage, UTI, sepsis, hyponatremia, dehydration, acute kidney injury, obstructive uropathy. Lab Data Result diagrams: 03/29/18 08:38 03/29/18 08:36 Lab Results 03/29/18 03/29/18 03/29/18 Range/Units 08:36 08:38 08:38 WBC 5.1 (4.0-11.0) th/mm3 RBC 4.26 L (4.50-5.90) mil/mm3 Hgb 12.9 L (13.0-17.0) gm/dL Hct 38.9 L (39.0-51.0) % MCV 91.4 (80.0-100.0) fL MCH 30.2 (27.0-34.0) pg MCHC 33.1 (32.0-36.0) % RDW 14.4 (11.6-17.2) % Plt Count 178 D (150-450) th/mm3 MPV 7.9 (7.0-11.0) fL Neut % (Auto) 69.4 (16.0-70.0) % Lymph % (Auto) 16.7 (9.0-44.0) % [place] % (Auto) 7.3 (0.0-8.0) % Eos % (Auto) 6.2 H (0.0-4.0) % Baso % (Auto) 0.4 (0.0-2.0) % Neut # (Auto) 3.5 (1.8-7.7) th/mm3 Lymph # (Auto) 0.8 L (1.0-4.8) th/mm3 [place] # (Auto) 0.4 (0.0-0.9) th/mm3 Eos # (Auto) 0.3 (0.0-0.4) th/mm3 Baso # (Auto) 0.0 (0.0-0.2) th/mm3 WBC Differential . Differential Comment Auto diff final Sodium 140 (136-145) meq/L Potassium 4.0 (3.5-5.1) meq/L Chloride 106 (98-107) meq/L Carbon Dioxide 25.6 (21.0-32.0) meq/L Anion Gap 8 (5-15) meq/L BUN 22 H (7-18) mg/dL Creatinine 1.49 H (0.60-1.30) mg/dL Estimated GFR 46 L (>89) mL/min Random Glucose 105 (74-106) mg/dL Lactic Acid 1.8 (0.4-2.0) mmol/L Calcium 8.4 L (8.5-10.1) mg/dL Total Bilirubin 0.3 (0.2-1.0) mg/dL AST 12 L (15-37) U/L ALT 25 (12-78) U/L Alkaline Phosphatase 82 (45-117) U/L Ammonia (11-32) mcmol/L Total Protein 6.3 L (6.4-8.2) g/dL Albumin 3.0 L (3.4-5.0) g/dL Valproic Acid (50-100) mcg/mL 03/29/18 03/29/18 Range/Units 08:38 08:38 WBC (4.0-11.0) th/mm3 RBC (4.50-5.90) mil/mm3 Hgb (13.0-17.0) gm/dL Hct (39.0-51.0) % MCV (80.0-100.0) fL MCH (27.0-34.0) pg MCHC (32.0-36.0) % RDW (11.6-17.2) % Plt Count (150-450) th/mm3 MPV (7.0-11.0) fL Neut % (Auto) (16.0-70.0) % Lymph % (Auto) (9.0-44.0) % [place] % (Auto) (0.0-8.0) % Eos % (Auto) (0.0-4.0) % Baso % (Auto) (0.0-2.0) % Neut # (Auto) (1.8-7.7) th/mm3 Lymph # (Auto) (1.0-4.8) th/mm3 [place] # (Auto) (0.0-0.9) th/mm3 Eos # (Auto) (0.0-0.4) th/mm3 Baso # (Auto) (0.0-0.2) th/mm3 WBC Differential Differential Comment Sodium (136-145) meq/L Potassium (3.5-5.1) meq/L Chloride (98-107) meq/L Carbon Dioxide (21.0-32.0) meq/L Anion Gap (5-15) meq/L BUN (7-18) mg/dL Creatinine (0.60-1.30) mg/dL Estimated GFR (>89) mL/min Random Glucose (74-106) mg/dL Lactic Acid (0.4-2.0) mmol/L Calcium (8.5-10.1) mg/dL Total Bilirubin (0.2-1.0) mg/dL AST (15-37) U/L ALT (12-78) U/L Alkaline Phosphatase (45-117) U/L Ammonia 21 (11-32) mcmol/L Total Protein (6.4-8.2) g/dL Albumin (3.4-5.0) g/dL Valproic Acid 30 L (50-100) mcg/mL Imaging Data Radiologist's impression: Abdomen X-Ray 03/29/18 08:30 CONCLUSION: No acute abnormality is identified. Left ureteral stent and presumed percutaneous nephrostomy tube are present. Head CT 03/29/18 08:30 CONCLUSION: 1. Area of abnormal low density, new from the prior study, in the left parietal and occipital lobes measuring approximately 4.4 x 2.8 cm. The appearance favors cytotoxic edema from a subacute ischemic event. This could be further characterized with a brain MRI, if needed. 2. Chronic findings include mild generalized atrophy and mild periventricular white matter low-attenuation likely representing chronic microvascular ischemia. . Discharge Plan Discharge Disposition Patient Disposition: 30 Still Patient Discharge Condition Condition: Stable Discharge Details Diagnosis: CVA (cerebral vascular accident), Chronic kidney disease, Cephalgia Physicians Team ED Provider: Omar Gomez Primary Care Provider: Mukund Moody Rxs /Orders / Referrals /Forms Prescriptions: No Action donepezil 10 mg Tablet 10 mg PO DAILY RF: 0 alprazolam [Xanax] 0.25 mg Tablet 0.25 mg PO DAILY RF: 0 divalproex 500 mg Tablet Extended Release 24 Hr 500 mg PO DAILY RF: 0 acetaminophen 500 mg Tablet 500 mg PO Q6H PRN (Reason: Pain) RF: 0 hydrocodone-acetaminophen 7.5-325 mg Tablet 0.5 tab PO Q3H PRN (Reason: Pain) RF: 0 Status ED Status: Pending Admission
[2018-03-29 09:24] LABS: Baso % (Auto) 0.4 % (0.0-2.0); Eos # (Auto) 0.3 th/mm3 (0.0-0.4); Eos % (Auto) 6.2 % (0.0-4.0); Hematocrit 38.9 % (39.0-51.0); Hemoglobin 12.9 gm/dL (13.0-17.0); Lymph # (Auto) 0.8 th/mm3 (1.0-4.8); Lymph % (Auto) 16.7 % (9.0-44.0); Mean Corpuscular HGB Conc 33.1 % (32.0-36.0); Mean Corpuscular Hemoglobin 30.2 pg (27.0-34.0); Mean Corpuscular Volume 91.4 fL (80.0-100.0); Mean Platelet Volume 7.9 fL (7.0-11.0); Mono # (Auto) 0.4 th/mm3 (0.0-0.9); Mono % (Auto) 7.3 % (0.0-8.0); Neut # (Auto) 3.5 th/mm3 (1.8-7.7); Neut % (Auto) 69.4 % (16.0-70.0); Platelet Count 178 th/mm3 (150-450); Red Blood Count 4.26 mil/mm3 (4.50-5.90); Red Cell Distribution Width 14.4 % (11.6-17.2); White Blood Count 5.1 th/mm3 (4.0-11.0)
[2018-03-29 09:28] LABS: Anion Gap 8 meq/L (5-15); Aspartate Aminotransferase 12 U/L (15-37); Blood Urea Nitrogen 22 mg/dL (7-18); Calcium 8.4 mg/dL (8.5-10.1); Carbon Dioxide 25.6 meq/L (21.0-32.0); Chloride 106 meq/L (98-107); Glomerular Filtration Rate 46 mL/min (>89); Glucose,Random 105 mg/dL (74-106); Sodium 140 meq/L (136-145)
--- NOTE | 2018-03-29 09:28 | CT ---
EXAM DATE: 03/29/2018 9:14 AM EDT AGE/SEX: 77 years / Male INDICATIONS: Headache CLINICAL DATA: This is the patient's initial encounter. Patient reports that signs and symptoms have been present for 1 day and indicates a pain score of 8/10. MEDICAL/SURGICAL HISTORY: Carcinoma, bladder. Dementia. Hepatitis C. Diverticulosis, Lymphoma, T horacic Aortic Aneurysm Cholecystectomy. RADIATION DOSE: 39.84 CTDI (mGy) COMPARISON: [facility], CT BRAIN W/O CONTRAST, 11/11/2016. . TECHNIQUE: CT of the head without contrast. Using automated exposure control and adjustment of the mA and/or kV according to patient size, radiation dose was kept as low as reasonably achievable to ob tain optimal diagnostic quality images. DICOM format image data is available electronically for revi ew and comparison. FINDINGS: Cerebrum: There is mild generalized atrophy and ventricles are normal given the degree of atrophy. M ild periventricular white matter change is present. There is an area of well-defined low density invo lving the medial occipitoparietal region on the left measuring approximately 4.4 x 2.8 cm. The abnorm al low density extends to the cortex and involves the eden matter. No midline shift, mass lesion, or hemorrhage. No extraaxial fluid collections are seen. Posterior Fossa: The cerebellum and brainstem demonstrate no acute abnormality. The 4th ventricle is midline. The cerebellopontine angle is within normal limits. Extracranial: The visualized sinuses are clear. Skull: The calvaria is intact. No skull fracture. CONCLUSION: 1. Area of abnormal low density, new from the prior study, in the left parietal and occipital lobes measuring approximately 4.4 x 2.8 cm. The appearance favors cytotoxic edema from a subacute ischemic event. This could be further characterized with a brain MRI, if needed. 2. Chronic findings include mild generalized atrophy and mild periventricular white matter low-atten uation likely representing chronic microvascular ischemia. . Electronically signed by: Harley Singleton MD 03/29/2018 9:27 AM EDT
[2018-03-29 09:29] LABS: Alanine Aminotransferase 25 U/L (12-78)
[2018-03-29 09:31] LABS: Alkaline Phosphatase 82 U/L (45-117); Total Protein 6.3 g/dL (6.4-8.2)
[2018-03-29] MEDS ORDERED: Morphine Sulfate Inj 2 MG/ML Vial IV.PUSH ONE (09:40)
--- NOTE | 2018-03-29 09:41 | XR ---
EXAM DATE: 03/29/2018 9:31 AM EDT AGE/SEX: 77 years / Male INDICATIONS: Abdominal pain CLINICAL DATA: This is the patient's initial encounter. Patient reports that signs and symptoms have been present for 1 day and indicates a pain score of 0/10. MEDICAL/SURGICAL HISTORY: . Carcinoma, bladder. Dementia. Hepatitis C. Diverticulosis, Lymphom a, Thoracic Aortic Aneurysm . Cholecystectomy. COMPARISON: [facility], CT ABDOMEN AND PELVIS W/O CONTRAST, 11/25/2017. . FINDINGS: Single supine frontal view of the abdomen demonstrates a left ureteral stent and presumed left percu taneous nephrostomy tube in place with the pigtail loops overlying the region of the kidney. No abnor mal densities/stones are visualized overlying the kidneys or along the course of the ureters. There i s a nonobstructive bowel gas pattern and no organomegaly is visualized. Bones demonstrate no acute fi nding. 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 CONCLUSION: No acute abnormality is identified. Left ureteral stent and presumed percutaneous nephrostomy tube ar e present. Electronically signed by: Harley Singleton MD 03/29/2018 9:40 AM EDT
[2018-03-29 10:37] LABS: Amorphous Sediment,Urine Few /hpf; Bacteria,Urine Rare /hpf; Bilirubin,Urine Negative (Negative); Clarity,Urine Hazy (Clear); Color,Urine Yellow (Yellw/Straw); Glucose,Urine (UA) Negative (Negative); Leukocyte Esterase,Urine Moderate (Negative); Mucus,Urine Few /lpf (Occasional); Nitrite,Urine Negative (Negative); Specific Gravity,Urine 1.017 (1.002-1.035)
--- NOTE | 2018-03-29 10:52 | P.HPFP ---
History of Present Illness Primary Care Physician: Mukund Moody <Borden,Yomi - 03/30/18 13:38> Mukund Moody <DawitClara Orourke - 03/29/18 10:51> Chief Complaint: headache, confusion <Chinyere Pastorjuana Orourke - 03/29/18 13:19> History of Present Illness: 77-year-old male with history of bladder cancer, vascular migraines, and dementia presented to the ED for a constant, dull headache and worsening confusion for 3 days. Per spouse, he sometimes complains of stabbing pain but otherwise states that headache is diffuse. He is also noted blurry vision and vertiginous dizziness, stating he has trouble walking. He states that sometimes he will walk into [place] because he feels that his "depth perception is off". He states that he feels stable with standing and walking and denies change in dizziness upon standing. Denies recent falls or head injury. He states that he is no longer able to read text from the TV or books due to this blurry vision. 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 Denies problems with speech, swallowing, facial drop, or focal weakness. Denies fever, chills, vomiting, numbness or tingling. Denies history of stroke, DVT, or PE. Per spouse patient has a history of dementia with waxing and waning orientation. Today he is disoriented to year, stating that it is 2023, but is otherwise oriented to self, place and day of the week. She states that he is more confused upon waking, sometimes having trouble with recent memory including, forgetting the events of the last couple days. She states that he continues to remain oriented to self and is able to recognize her without issue. He has a history of vascular migraines, which was diagnosed about 1-1/2 years ago, for which he sees neurologist, Dr. Chaudhry. Since being placed on table prophylaxis in April 2017, he no longer experiences these migraines. Per spouse, these episodes consist of diffuse headache, significant disorientation, and states that sometimes his "eyes roll into the back of his head and he will fall". Also admits to these headaches being worse with rainy weather, and usually experiences relief with Tylenol. He has been seeing Dr. Madden for his recently diagnosed bladder cancer 3 weeks ago, status post tumor resection and subsequent internal and external urostomy tube placement. Per after undergoing bladder surgery about 3 weeks ago, he has been experiencing generalized weakness, decreased appetite, and lost about 10 pounds. He has had some urinary incontinence. External urostomy bag removed after patient started passing urine on his own. Denies active bleeding , drainage, pain, or erythema of the urostomy site. He has a history of UTI about 6 weeks ago for which he took 5 days of ciprofloxacin. He also complains of rectal pain, especially when sitting, or having a bowel movement. Last bowel movement was 3 days ago, small, hard stools passed. No blood noticed. This is has been worked up by GI, Dr. Goode, and Oncologist, Dr. Madden, who state that this is likely due to an enlarged prostate. He is currently on a regimen of stool softeners and Metamucil at home, with minimal effect. Past medical history: Vascular migraines Meniere's disease Dementia Bladder Cancer Lymphoma 9 years ago, in remission Unspecified heart defect (possible ASD or VSD) Family medical history: Non-contributory Social history: Former smoker: < 1/2 week for 30 years, quit in 1989 No ETOH No other drug use PCP: Dr. Davis Oncologist: Dr. Madden Urologist: Dr. Santiago GI: Dr. Goode, seen for pain in rectum Neurologist: Dr. Chaudhry <Clara Pastor 03/29/18 13:19> - Diagnosis (1) Cephalgia (2) Confusion (3) History of CVA (cerebrovascular accident) (4) UTI (urinary tract infection) (5) Bladder cancer (6) Constipation (7) Rectal pain (8) Dementia (9) Meniere disease (10) Nutrition, metabolism, and development symptoms (11) DVT prophylaxis <Clara Pastor 03/29/18 11:55> Inpatient Certification: I certify that the inpatient services were ordered in accordance with Medicare regulations governing the order. This includes certification that hospital inpatient services are reasonable and necessary and in the case of services not specified as inpatient-only under 42 CFR 419.22(n), that they are appropriately provided as inpatient services in accordance to with the 2-midnight benchmark under 43 CFR 412.3(e) <Yomi Borden - 03/30/18 13:38> Review of Systems Constitutional: Reports fatigue, Reports weakness (generalized ), Reports weight loss (since surgery lost about 10 lbs (03/04) ), Denies chills, Denies fever(s), Denies night sweats <Clara Pastor - 03/29/18 10:59> Eyes: Reports blurry vision, Reports double vision (causing trouble reading ) <Clara Pastor - 03/29/18 10:59> Ears, Nose, Mouth, and Throat: Denies difficulty swallowing, Denies nasal congestion, Denies nasal discharge, Denies sore throat <Clara Pastor 10:59> Cardiovascular: Denies chest pain, Denies foot swelling <Clara Pastor - 10:59> Gastrointestinal: Reports abdominal pain (hx of diverticulosis), Reports constipation (last BM 3 days), Reports nausea, Denies black, tarry stools, Denies bright, red blood in stools, Denies pain with swallowing, Denies vomiting <Clara Pastor - 03/29/18 10:59> Musculoskeletal: Reports abnormal walking ( states that he seems very unsteady ) <Clara Pastor - 03/29/18 10:59> PMFSH - History History Provided By: Patient <Clara Pastor - 03/29/18 10:51> - Medical History Medical History: Medical History (Last Reviewed 03/29/18 @ 13:11 by Clara Pastor DO, R1) Bladder cancer Dementia Diverticulosis FHx: cholecystectomy Hematuria Hepatitis C Hypercholesteremia Lymphoma Thoracic aortic aneurysm <Yomi Borden - 03/30/18 13:38> Medical History (Last Reviewed 03/29/18 @ 13:11 by Clara Pastor DO, R1) Bladder cancer Dementia Diverticulosis FHx: cholecystectomy Hematuria Hepatitis C Hypercholesteremia Lymphoma Thoracic aortic aneurysm <Clara Pastor 03/29/18 13:19> - Surgical History Surgical History: Surgical History (Last Updated 03/29/18 @ 13:12 by Clara Pastor DO, R1) History of tonsillectomy S/P ureteral stent placement <Yomi Borden - 03/30/18 13:38> Surgical History (Last Updated 03/29/18 @ 13:12 by Clara Pastor DO, R1) History of tonsillectomy S/P ureteral stent placement <Clara Pastor - 03/29/18 13:19> - Family History Family History: Family History (Last Updated 03/29/18 @ 13:12 by Clara Pastor DO, R1) Other Family history non-contributory <Yomi Borden - 03/30/18 13:38> Family History (Last Updated 03/29/18 @ 13:12 by Clara Pastor DO, R1) Other Family history non-contributory <Clara Pastor - 03/29/18 13:19> - Social History I have reviewed the patient's Social History: Yes <Clara Pastor 03/29/18 13:19> - Tobacco History Second Hand Smoke Exposure: No <Clara Pastor 03/29/18 10:51> Tobacco Use In Past 30 Days: No <Clara Pastor 03/29/18 13:19> Smoking Status: Former smoker <Clara Pastor 03/29/18 10:51> - Alcohol History How Often Do You Have a Drink Containing Alcohol: Monthly or less <Clara Pastor 03/29/18 10:51> - Substance Use History Substance History: No History of Abuse <Clara Pastor 03/29/18 10:51> - Travel History Recent Travel in the [facility] Within the Last 8 Weeks: No <Clara Pastor 10:51> Recent Travel Out of the Country Within the Last 8 Weeks: No <Clara Pastor 03/29/18 10:51> - Immunization History Tetanus Immunization: Unsure <Clara Pastor 03/29/18 10:51> Medications and Allergies Allergies Allergy/AdvReac Type Severity Reaction Status Date / Time No Known Allergies Allergy Verified 03/29/18 08:13 <Yomi Borden - 03/30/18 13:38> Home Medications Medication Instructions Recorded Confirmed Type alprazolam [Xanax] 0.25 mg PO DAILY 03/17/18 03/29/18 History divalproex 500 mg PO DAILY 03/17/18 03/29/18 History donepezil 10 mg PO DAILY 03/17/18 03/29/18 History acetaminophen 500 mg PO Q6H PRN 03/29/18 03/29/18 History hydrocodone-acetaminophen 0.5 tab PO Q3H PRN 03/29/18 03/29/18 History <Yomi Borden - 03/30/18 13:38> Active Medications: Active Medications Acetaminophen (Tylenol) 650 mg PO Q4H PRN PRN Reason: HEADACHE Last Admin: 03/30/18 08:15 Dose: 650 mg Al Hydroxide/Mg Hydroxide (Milk Of Magnesia Liq) 30 ml PO Q12H PRN PRN Reason: Mild Constipation Aspirin (Aspirin) 325 mg PO DAILY [facility] Last Admin: 03/30/18 08:15 Dose: 325 mg Atorvastatin Calcium (Lipitor) 40 mg PO HS [facility] Last Admin: 03/29/18 21:57 Dose: 40 mg Bisacodyl (Dulcolax Supp) 10 mg RECTAL DAILY PRN PRN Reason: SEVERE CONSITIPATION Ciprofloxacin HCl (Cipro) 500 mg PO Q12HR [facility] Last Admin: 03/30/18 08:15 Dose: 500 mg Divalproex Sodium (Depakote Er) 500 mg PO DAILY [facility] Last Admin: 03/30/18 08:15 Dose: 500 mg Donepezil HCl (Aricept) 10 mg PO DAILY@2100 [facility] Last Admin: 03/29/18 21:56 Dose: 10 mg Enalaprilat (Vasotec Inj) 1.25 mg IV.PUSH Q4H PRN PRN Reason: SBP > 180 Last Admin: 03/30/18 08:24 Dose: 1.25 mg Heparin Sodium (Porcine) (Heparin Inj) 5,000 units SQ BID [facility] Sodium Chloride (Ns Inj) 1,000 mls @ 70 mls/hr IV.CONT .[id number] [facility] Last Admin: 03/30/18 06:39 Dose: 70 mls/hr Lactulose (Lactulose Liq) 30 ml PO DAILY PRN PRN Reason: SEVERE CONSITIPATION Last Admin: 03/30/18 10:25 Dose: 30 ml Ondansetron HCl (Zofran Inj) 4 mg IV.PUSH Q8H PRN PRN Reason: NAUSEA Last Admin: 03/30/18 10:24 Dose: 4 mg Pharmacy Profile Note (Coumadin Consult Pharmacy) 1 each OTHER UNSCH PRN PRN Reason: PHARMACY DOCUMENTATION Polyethylene Glycol (Miralax) 17 gm PO ONCE PRN PRN Reason: CONSTIPATION Last Admin: 03/29/18 21:57 Dose: 17 gm Senna/Docusate Sodium (Lissette-Colace) 1 tab PO BID [facility] Sennosides (Senokot) 17.2 mg PO Q12H PRN PRN Reason: Moderate Constipation Sodium Chloride (Ns Flush) 2 ml IV.FLUSH BID [facility] Last Admin: 03/30/18 08:15 Dose: Not Given Sodium Chloride (Ns Flush) 2 ml IV.FLUSH PRN PRN PRN Reason: FLUSH AFTER USING IV ACCESS Warfarin Sodium (Coumadin) 5 mg PO ONCE ONE Stop: 03/30/18 16:01 Warfarin Sodium (Coumadin) 2.5 mg PO DAILY@1600 [facility] <Yomi Borden - 03/30/18 13:38> Active Medications Sodium Chloride (Ns Flush) 2 ml IV.FLUSH PRN PRN PRN Reason: FLUSH AFTER USING IV ACCESS <Clara Pastor - 03/29/18 10:59> Exam Vital signs: Vital Signs 03/29/18 16:00 03/29/18 20:00 03/29/18 23:19 Temperature 97.8 F 97.9 F Pulse Rate 66 69 Respiratory Rate 18 18 18 Blood Pressure 148/83 H 171/98 H Pulse Oximetry 96 97 03/29/18 23:40 03/30/18 00:00 03/30/18 04:00 Temperature 97.4 F L 97.8 F Pulse Rate 63 66 65 Respiratory Rate 17 19 Blood Pressure 174/97 H 178/94 H Pulse Oximetry 97 96 03/30/18 04:10 03/30/18 08:00 03/30/18 10:54 Temperature 97.7 F Pulse Rate 61 Respiratory Rate 18 20 Blood Pressure 180/92 H Pulse Oximetry 95 98 03/30/18 12:00 Temperature 97.6 F Pulse Rate 73 Respiratory Rate 20 Blood Pressure 163/93 H Pulse Oximetry 95 Intake & Output 03/29/18 03/30/18 03/30/18 18:59 06:59 18:59 Intake Total 1340 / 1340 1000 / 1000 Output Total 800 / 800 750 / 750 Balance 1340 / 1340 200 / 200 -750 / -750 Weight 77.111 kg 80.1 kg Intake: IV 1100 / 1100 1000 / 1000 NS Inj 1,000 ML @ 70 mls/hr IV. 1000 / 1000 CONT .[id number] [facility] Rx#:[id number] NS Inj 1,000 ML @ Wide Open IV. 1000 / 1000 SIG BOLUS ONE Rx#:[id number] Rocephin Inj 1,000 MG In NS Inj 100 / 100 100 ML @ 200 mls/hr IV.SIG ONCE ONE Rx#:[id number] Oral 240 / 240 Output: Urine 800 / 800 750 / 750 Other: # Voids 1 3 1 Date of Last Bowel Movement 03/26/18 03/28/18 03/30/18 # Bowel Movements 1 <Yomi Borden - 03/30/18 13:38> Vital Signs 03/29/18 07:49 03/29/18 10:03 Temperature 97.8 F Pulse Rate 109 H 77 Respiratory Rate 24 18 Blood Pressure 143/96 H 139/92 H Pulse Oximetry 96 97 Intake & Output 03/28/18 03/29/18 03/29/18 18:59 06:59 18:59 Weight 77.111 kg <Clara Pastor - 03/29/18 10:51> Narrative: GENERAL: 77-year-old male laying in bed comfortably, in no acute distress. SKIN: Warm and dry. HEAD: Atraumatic. Normocephalic. EYES: Pupils equal and round. EMOI. No scleral icterus. No injection or drainage. ENT: No nasal bleeding or discharge. Mucous membranes pink and moist. NECK: Trachea midline. No JVD. CARDIOVASCULAR: Regular rate and rhythm. RESPIRATORY: No accessory muscle use. Clear to auscultation. Breath sounds equal bilaterally. BACK: External ureteral stent in place, no notable bleeding, drainage, erythema , swelling noted. GASTROINTESTINAL: Bowel sounds in all 4 quadrants. Abdomen soft, nondistended. Mild suprapubic tenderness to palpation. MUSCULOSKELETAL: Extremities without clubbing, cyanosis, or edema. No obvious deformities. NEUROLOGICAL: Awake and alert. Oriented to self, place, and day. Disoriented to year. Cranial nerves grossly intact. Motor grossly within normal limits. Five out of 5 muscle strength in the arms and legs. Normal speech. No notable pronator drift. Rapid alternating movements intact. Abnormal finger to nose bilaterally. PSYCHIATRIC: Appropriate mood and affect; insight and judgment normal. <Clara Pastor - 03/29/18 13:19> Results - Labs Result diagrams: 03/30/18 11:11 03/30/18 06:50 <Yomi Borden - 03/30/18 13:38> Abnormal lab results 03/29/18 03/29/18 03/30/18 Range/Units 14:38 14:38 06:50 RBC (4.50-5.90) mil/mm3 Hgb (13.0-17.0) gm/dL Hct (39.0-51.0) % Chloride (98-107) meq/L Estimated GFR (>89) mL/min POC Glucose (68-110) mg/dl Calcium (8.5-10.1) mg/dL Troponin I Less than 0.02 L (0.02-0.05) ng/mL HDL Cholesterol 26.6 L (40.0-60.0) mg/dL TSH 3.780 H (0.358-3.740) uIU/mL 03/30/18 03/30/18 03/30/18 Range/Units 06:50 11:11 12:24 RBC 3.98 L (4.50-5.90) mil/mm3 Hgb 12.0 L (13.0-17.0) gm/dL Hct 36.3 L (39.0-51.0) % Chloride 111 H (98-107) meq/L Estimated GFR 56 L (>89) mL/min POC Glucose 129 H (68-110) mg/dl Calcium 8.0 L (8.5-10.1) mg/dL Troponin I (0.02-0.05) ng/mL HDL Cholesterol (40.0-60.0) mg/dL TSH (0.358-3.740) uIU/mL Short CBC 03/30/18 Range/Units 11:11 WBC 4.8 (4.0-11.0) th/mm3 Hgb 12.0 L (13.0-17.0) gm/dL Hct 36.3 L (39.0-51.0) % Plt Count 156 (150-450) th/mm3 BMP 03/30/18 06:50 Sodium 141 Potassium 4.3 Chloride 111 H Carbon Dioxide 23.3 BUN 18 Creatinine 1.26 Calcium 8.0 L Cardiac Enzymes 03/30/18 Range/Units 06:50 Total Creatine Kinase 39 (39-308) U/L Troponin I Less than 0.02 L (0.02-0.05) ng/mL <Yomi Borden - 03/30/18 13:38> Abnormal lab results 03/29/18 03/29/18 03/29/18 Range/Units 08:36 08:38 08:38 RBC 4.26 L (4.50-5.90) mil/mm3 Hgb 12.9 L (13.0-17.0) gm/dL Hct 38.9 L (39.0-51.0) % Eos % (Auto) 6.2 H (0.0-4.0) % Lymph # (Auto) 0.8 L (1.0-4.8) th/mm3 BUN 22 H (7-18) mg/dL Creatinine 1.49 H (0.60-1.30) mg/dL Estimated GFR 46 L (>89) mL/min Calcium 8.4 L (8.5-10.1) mg/dL AST 12 L (15-37) U/L Total Protein 6.3 L (6.4-8.2) g/dL Albumin 3.0 L (3.4-5.0) g/dL Valproic Acid 30 L (50-100) mcg/mL Short CBC 03/29/18 Range/Units 08:38 WBC 5.1 (4.0-11.0) th/mm3 Hgb 12.9 L (13.0-17.0) gm/dL Hct 38.9 L (39.0-51.0) % Plt Count 178 D (150-450) th/mm3 BMP 03/29/18 08:36 Sodium 140 Potassium 4.0 Chloride 106 Carbon Dioxide 25.6 BUN 22 H Creatinine 1.49 H Calcium 8.4 L Liver Function 03/29/18 Range/Units 08:36 Total Bilirubin 0.3 (0.2-1.0) mg/dL AST 12 L (15-37) U/L ALT 25 (12-78) U/L Alkaline Phosphatase 82 (45-117) U/L Albumin 3.0 L (3.4-5.0) g/dL <Clara Pastor - 03/29/18 10:51> - Imaging Impressions Carotid Doppler Study 03/29/18 00:00 CONCLUSION: 1. Right Internal Carotid Artery: No significant stenosis or atherosclerotic plaque is visualized. 2. Left Internal Carotid Artery: No significant stenosis or atherosclerotic plaque is visualized. Head MRA 03/29/18 00:00 CONCLUSION: Negative MRA [place] ([facility] [place]) non contrast. Neck MRA 03/29/18 00:00 CONCLUSION: 1. Unremarkable MRA neck. Percent stenosis is calculated using the diameter of the stenotic region over the diameter of the normal distal internal carotid artery Head MRI 03/29/18 11:22 CONCLUSION: 1. Large bilobed stroke in the left occipital and parietal lobes. Significant perfusion abnormality. At this point no significant mass effect. <Yomi Borden - 03/30/18 13:38> Impressions Abdomen X-Ray 03/29/18 08:30 CONCLUSION: No acute abnormality is identified. Left ureteral stent and presumed percutaneous nephrostomy tube are present. Head CT 03/29/18 08:30 CONCLUSION: 1. Area of abnormal low density, new from the prior study, in the left parietal and occipital lobes measuring approximately 4.4 x 2.8 cm. The appearance favors cytotoxic edema from a subacute ischemic event. This could be further characterized with a brain MRI, if needed. 2. Chronic findings include mild generalized atrophy and mild periventricular white matter low-attenuation likely representing chronic microvascular ischemia. . <Clara Pastor 03/29/18 10:51> Caprini VTE Risk Assessment Caprini VTE Risk Assessment: Moderate/High Risk (score >= 2) <Clraa Pastor 03/29/18 13:19> Murtaza Risk Assessment Model: Point Value = 1 Point Value = 2 Point Value = 3 Point Value = 5 Age 41-60 Minor surgery BMI > 25 kg/m2 Swollen legs Varicose veins or History of unexplained or recurrent spontaneous Oral contraceptives or hormone replacement Sepsis (< 1 month) Serious lung disease, including pneumonia (< 1 month) Abnormal pulmonary function Acute myocardial infarction Congestive heart failure (< 1 month) History of inflammatory bowel disease Medical patient at bed rest Age 61-74 Arthroscopic surgery Major open surgery (> 45 min) Laparoscopic surgery (> 45 min) Malignancy Confined to bed (> 72 hours) Immobilizing plaster cast Central venous access Age >= 75 History of VTE Family history of VTE Factor V Leiden Prothrombin [id number] Lupus anticoagulant Anticardiolipin antibodies Elevated serum homocysteine Heparin-induced thrombocytopenia Other congenital or acquired thrombophilia Stroke (< 1 month) Elective arthroplasty Hip, pelvis, or leg fracture Acute spinal cord injury (< 1 month) <Yomi Borden - 03/30/18 13:38> Point Value = 1 Point Value = 2 Point Value = 3 Point Value = 5 Age 41-60 Minor surgery BMI > 25 kg/m2 Swollen legs Varicose veins or History of unexplained or recurrent spontaneous Oral contraceptives or hormone replacement Sepsis (< 1 month) Serious lung disease, including pneumonia (< 1 month) Abnormal pulmonary function Acute myocardial infarction Congestive heart failure (< 1 month) History of inflammatory bowel disease Medical patient at bed rest Age 61-74 Arthroscopic surgery Major open surgery (> 45 min) Laparoscopic surgery (> 45 min) Malignancy Confined to bed (> 72 hours) Immobilizing plaster cast Central venous access Age >= 75 History of VTE Family history of VTE Factor V Leiden Prothrombin [id number] Lupus anticoagulant Anticardiolipin antibodies Elevated serum homocysteine Heparin-induced thrombocytopenia Other congenital or acquired thrombophilia Stroke (< 1 month) Elective arthroplasty Hip, pelvis, or leg fracture Acute spinal cord injury (< 1 month) <Clara Pastor 03/29/18 10:51> Prophylaxis Regimen: Total Risk Factor Score Risk Level Prophylaxis Regimen 0-1 Low Early ambulation 2 Moderate Order ONE of the following: *Sequential Compression Device (SCD) *Heparin 5000 units SQ BID 3-4 Higher Order ONE of the following medications: *Heparin 5000 units SQ TID *Enoxaparin/Lovenox 40 mg SQ daily (WT < 150 kg, CrCl > 30 mL/min) *Enoxaparin/Lovenox 30 mg SQ daily (WT < 150 kg, CrCl > 10-29 mL/min) *Enoxaparin/Lovenox 30 mg SQ BID (WT < 150 kg, CrCl > 30 mL/min) AND/OR *Sequential Compression Device (SCD) 5 or more Highest Order ONE of the following medications: *Heparin 5000 units SQ TID (Preferred with Epidurals) *Enoxaparin/Lovenox 40 mg SQ daily (WT < 150 kg, CrCl > 30 mL/min) *Enoxaparin/Lovenox 30 mg SQ daily (WT < 150 kg, CrCl > 10-29 mL/min) *Enoxaparin/Lovenox 30 mg SQ BID (WT < 150 kg, CrCl > 30 mL/min) AND *Sequential Compression Device (SCD) <Yomi Borden - 03/30/18 13:38> Total Risk Factor Score Risk Level Prophylaxis Regimen 0-1 Low Early ambulation 2 Moderate Order ONE of the following: *Sequential Compression Device (SCD) *Heparin 5000 units SQ BID 3-4 Higher Order ONE of the following medications: *Heparin 5000 units SQ TID *Enoxaparin/Lovenox 40 mg SQ daily (WT < 150 kg, CrCl > 30 mL/min) *Enoxaparin/Lovenox 30 mg SQ daily (WT < 150 kg, CrCl > 10-29 mL/min) *Enoxaparin/Lovenox 30 mg SQ BID (WT < 150 kg, CrCl > 30 mL/min) AND/OR *Sequential Compression Device (SCD) 5 or more Highest Order ONE of the following medications: *Heparin 5000 units SQ TID (Preferred with Epidurals) *Enoxaparin/Lovenox 40 mg SQ daily (WT < 150 kg, CrCl > 30 mL/min) *Enoxaparin/Lovenox 30 mg SQ daily (WT < 150 kg, CrCl > 10-29 mL/min) *Enoxaparin/Lovenox 30 mg SQ BID (WT < 150 kg, CrCl > 30 mL/min) AND *Sequential Compression Device (SCD) <Chinyere Pastorjuana Orourke - 03/29/18 13:19> Assessment and Plan - Assessment (1) Cephalgia Code(s): R51 - Headache Status: Acute Plan: Patient admitted for worsening headache and confusion for the past 3 days, in addition to possible subacute ischemic event noted on imaging studies performed in the ED. Patient has a history of vascular migraines, for which he normally take Divalproex daily. He states that this does have some similar features to vascular migraines in the past. CT brain performed in ED showed an "area of abnormal low density, new from the prior study, in the left parietal and occipital lobes measuring approximately 4.4 x 2.8 cm. The appearance favors cytotoxic edema from a subacute ischemic event." MRI/MRA brain ordered. Echocardiogram ordered. EKG ordered. US of the carotids ordered. Lipid panel, PT/PTT/INR & HbA1C ordered Tylenol 650 mg PO q4hr PRN ASA 325 mg PO qDay Atorvastatin 40 mg PO qDay Enalaprilat 1.25mg IV PRN SBP > 180 Continue home divalproex 500 mg PO qDay Neurology consulted. Appreciated recommendations. Bedside swallow evaluation ordered. If passes, patient can have regular diet. Fall precautions. Q4hr neurochecks. PT/OT and rehab medicine consulted for evaluation and treatment. CM consulted for evaluation of needs. (2) Confusion Code(s): R41.0 - Disorientation, unspecified Status: Acute Plan: Patient presents to the ED with increased confusion per spouse. On admission, patient is alert, and oriented x2. He is able to self and place, but is somewhat disoriented to time. He states that it is 2041, but knows today is a Friday. Per , his baseline orientation waxes and wanes, but he is always oriented to self and able to recognize family. He has been more confused since recent cancer surgery 3 weeks ago. Subacute ischemic event vs. UTI vs. advancing dementia. Recommend reorientation, avoid restraints were possible. see cephalgia plan above (3) History of CVA (cerebrovascular accident) Code(s): Z86.73 - Personal history of transient ischemic attack (TIA), and cerebral infarction without residual deficits Status: Acute Plan: CT brain performed in ED, likely consistent with subacute ischemic event. See cephalgia plan above. (4) UTI (urinary tract infection) Code(s): N39.0 - Urinary tract infection, site not specified Status: Acute Plan: UA performed in the ED showed moderate occult blood, moderate leukocyte esterase , 63 RBC, 81 WBC and rare bacteria. Given 1g of rocephin in the ED. Patient also has a history of bladder cancer with internal and external ureteral stent placement. Awaiting urine culture. Ordered Ciprofloxacin 500 mg PO q12hr to be started on 03/30. (5) Bladder cancer Code(s): C67.9 - Malignant neoplasm of bladder, unspecified Status: Chronic Plan: Patient was recently diagnosed with bladder CA about 3 weeks ago and underwent surgical removal of the tumor, with subsequent internal and external ureteral stent placement. He is not a good candidate for chemotherapy at this time, but has been recommended to start radiation therapy in the near future. Urology initially consulted regarding possible removal of external ureteral tube removal. Spoke to Dr. Vasquez, who states that this is not an acute issue and recommends that the patient discuss this issue further with his urologist, Dr. Santiago, on an outpatient basis once he is discharged from the hospital. (6) Constipation Code(s): K59.00 - Constipation, unspecified Status: Chronic Plan: Patient has a history of chronic constipation and takes stool softeners at home in addition to Metamucil. Last BM was 3 days ago, small, hard stools. No blood noted. MiraLAX 1 packet as needed for constipation (7) Rectal pain Code(s): K62.89 - Other specified diseases of anus and rectum Status: Chronic Plan: Patient has history of rectal pain which started a couple of weeks ago, stating that it is painful to sit. He has been seen by GI specialist, Dr. Goode, and oncologist, Dr. Madden, for this issue who told the patient and family that this is likely due to an enlarged prostate, as no obvious external structural problems have been identified. Tylenol for pain. (8) Dementia Code(s): F03.90 - Unspecified dementia without behavioral disturbance Status: Chronic Plan: Patient has a history of dementia, for which he takes Donepezil at night. He received his last dose, yesterday evening. Will continue home donepezil. (9) Meniere disease Code(s): H81.09 - Meniere's disease, unspecified ear Status: Chronic Plan: Patient has a history of meniere's disease and experiences tinnitus and dizziness periodically and can disrupt his sleep. Takes Xanax 0.5mg PRN for sleep, when he is unable to sleep due to tinnitus. He has only taken this medication 2 times in the past 2 weeks. Will hold Xanax for now, due to confusion. (10) Nutrition, metabolism, and development symptoms Code(s): R63.8 - Other symptoms and signs concerning food and fluid intake Status: Acute Plan: Fluids: Gentle IVF at 70mls/hr. Tolerating PO fluids at this time. Electrolytes: No notable electrolyte abnormalities at this time. Will continue to monitor and replete as needed. Diet: Regular diet, following bedside swallow evaluation. (11) DVT prophylaxis Status: Acute Plan: Lovenox 40mg <Clara Pastor - 03/29/18 11:55> - Assessment and Plan See the residents documentation for details. I saw and evaluated the patient regarding the lira portions of this evaluation and agree with the residents findings and plans as written. Parts of this note were created using [employer] voice recognition software program. While efforts were made to correct any mistakes made by this software, some mistakes, errors, and omissions may remain in the final note that were not caught when the note was originally created. Plan of care was discussed and agreed upon with the patient as specifically documented in the above note. An opportunity to ask questions with explanation was provided. Patient voiced understanding on all information reviewed and discussed. <Yomi Borden - 03/30/18 13:38> Patient admitted for stroke workup. <Clara Pastor - 03/29/18 13:19> <DawitClara - Last Filed: 03/29/18 11:55> (1) Cephalgia Qualifiers: Headache type: unspecified Headache chronicity pattern: episodic headache Intractability: intractable Qualified Code(s): R51 - Headache <DawitClara - Filed: 03/29/18 11:55> (1) Cephalgia Qualifiers: Headache type: unspecified Headache chronicity pattern: episodic headache Intractability: intractable Qualified Code(s): R51 - Headache
[2018-03-29] MEDS ORDERED: Enoxaparin Inj 40 MG/0.4 ML Syringe SQ SCH (12:00)
[2018-03-29] MEDS ORDERED: Polyethylene Glycol 3350 17 GM Packet PO PRN (12:37)
[2018-03-29] MEDS: Sod Chloride 0.9% Inj 1,000 ML IV.CONT SCH (13:57)
[2018-03-29] MEDS: Aspirin 325 MG Tablet PO SCH (13:57)
--- NOTE | 2018-03-29 14:52 | ECHRPT ---
Indication: CVA/TIA CONCLUSIONS The left ventricular systolic function is normal with an estimated ejection fraction in the range of 55-60%. Normal left ventricular size. Wall thickness is normal. The left atrial size is mildly dilated. Trace aortic valve regurgitation. There is mild tricuspid valve regurgitation. The estimated pulmonary arterial pressure is 30.6 mmHg. BP: / HR: Rhythm: Sinus MEASUREMENTS (Male / Female) Normal Values Technical Quality:Good 2D ECHO LV Diastolic Diameter PLAX 4.7 cm 4.2 - 5.9 / 3.9 - 5.3 cm LV Systolic Diameter PLAX 3.6 cm IVS Diastolic Thickness 1.2 cm 0.6 - 1.0 / 0.6 - 0.9 cm LVPW Diastolic Thickness 1.2 cm 0.6 - 1.0 / 0.6 - 0.9 cm LV Relative Wall Thickness 0.5 LVOT Diameter 2.2 cm M-MODE Aortic Root Diameter MM 3.6 cm LA Systolic Diameter MM 4.3 cm LA Ao Ratio MM 1.2 AV Cusp Separation MM 2.5 cm DOPPLER AV Peak Velocity 134.0 cm/s AV Peak Gradient 7.2 mmHg AI Peak Velocity 434.3 cm/s AI Peak Gradient 75.5 mmHg AI Pressure Half Time 1137.7 ms LVOT Peak Velocity 109.0 cm/s LVOT Peak Gradient 4.8 mmHg AV Area Cont Eq pk 3.1 cm Mitral E Point Velocity 57.8 cm/s Mitral A Point Velocity 62.2 cm/s Mitral E to A Ratio 0.9 LV E' Lateral Velocity 5.8 cm/s Mitral E to LV E' Lateral Ratio 10.1 LV E' Septal Velocity 4.8 cm/s Mitral E to LV E' Septal Ratio 12.1 TR Peak Velocity 227.0 cm/s TR Peak Gradient 20.6 mmHg Right Atrial Pressure 10.0 mmHg Pulmonary Artery Systolic Pressu 30.6 mmHg Right Ventricular Systolic Press 30.6 mmHg PV Peak Velocity 92.3 cm/s PV Peak Gradient 3.4 mmHg FINDINGS LEFT VENTRICLE The left ventricular systolic function is normal with an estimated ejection fraction in the range of 55-60%. Normal left ventricular size. Wall thickness is normal. RIGHT VENTRICLE Normal right ventricular size and systolic function. LEFT ATRIUM The left atrial size is mildly dilated. RIGHT ATRIUM The right atrial size is normal. ATRIAL SEPTUM Normal atrial septal thickness without atrial level shunting by limited color doppler interrogation. AORTA The aortic root and proximal ascending aorta are normal in size on limited imaging. MITRAL VALVE Structurally normal mitral valve. No mitral valve stenosis or regurgitation. AORTIC VALVE Trace aortic valve regurgitation. TRICUSPID VALVE There is mild tricuspid valve regurgitation. The estimated pulmonary arterial pressure is 30.6 mmHg. PULMONARY VALVE No pulmonary valve regurgitation or stenosis. VESSELS The inferior vena cava is normal in size. PERICARDIUM No pericardial effusion. Jennifer Forte MD, FACC (Electronically Signed) Final Date:29 March 2018 14:51
--- NOTE | 2018-03-29 14:53 | US ---
EXAM DATE: 03/29/2018 2:48 PM EDT AGE/SEX: 77 years / Male INDICATIONS: Cerebrovascular accident. CLINICAL DATA: This is the patient's initial encounter. Patient reports that signs and symptoms have been present for 1 day and indicates a pain score of 0/10. MEDICAL/SURGICAL HISTORY: . Bladder cancer. Dementia. Diverticulosis. Hematuria. Hepatitis C. Hyperhoclesterol. Lymphoma. Thoracic aortic aneurysm. Cholecystectomy. Tonsillectomy. Uretera l stent. COMPARISON: No prior exams available for comparison. VELOCITY PARAMETERS: ICA/CCA Ratio: Right 0.9 , Left 0.7 ICA: Right 52 cm/sec, Left 44 cm/sec CCA: Right 58 cm/sec, Left 66 cm/sec ECA: Right 79 cm/sec, Left 70 cm/sec Vertebral: Right 41 cm/sec antegrade, Left 54 cm/sec antegrade FINDINGS: Right Carotid: No significant plaque is visualized.The waveforms are within normal limits. Left Carotid: No significant plaque is visualized. The waveforms are within normal limits. Other: None. CONCLUSION: 1. Right Internal Carotid Artery: No significant stenosis or atherosclerotic plaque is visualized. 2. Left Internal Carotid Artery: No significant stenosis or atherosclerotic plaque is visualized. Electronically signed by: Wally Del Rosario MD 03/29/2018 2:51 PM EDT
[2018-03-29 15:51] LABS: Activated Partial Thrombo Time 26.6 sec (24.3-30.1); Prothrombin Time 10.2 sec (9.8-11.6)
[2018-03-29 15:54] LABS: Chol/HDL Ratio 5.67 Ratio; HDL Cholesterol 26.6 mg/dL (40.0-60.0)
--- NOTE | 2018-03-29 18:03 | MR ---
EXAM DATE: 03/29/2018 5:55 PM EDT AGE/SEX: 77 years / Male INDICATIONS: Cephalgia. Blurred vision, ataxia, confusion. CLINICAL DATA: This is the patient's initial encounter. Patient reports that signs and symptoms have been present for 1 day and indicates a pain score of 0/10. MEDICAL/SURGICAL HISTORY: Carcinoma, bladder. Hypertension. Cholecystectomy. Tonsillectomy. COMPARISON: [facility] – [place], MR HEAD W/O CONTRAST, 03/29/2018. . TECHNIQUE: 3D [id number] MRA was performed. Source images, multiplanar STS MIP, and 3D volum e MIP reconstructions were reviewed. FINDINGS: There is excellent visualization of the major intracranial arteries out to the second-order branch ve ssels. There is no evidence for aneurysm, vessel truncation or stenosis, and no evidence for vascula r malformation. CONCLUSION: Negative MRA [place] ([place]) non contrast. Electronically signed by: Harley Mosqueda MD 03/29/2018 6:02 PM EDT
--- NOTE | 2018-03-29 18:13 | MR ---
EXAM DATE: 03/29/2018 5:55 PM EDT AGE/SEX: 77 years / Male INDICATIONS: Cephalgia. Dizziness. Ataxia. Confusion. CLINICAL DATA: This is the patient's initial encounter. Patient reports that signs and symptoms have been present for 1 day and indicates a pain score of 0/10. MEDICAL/SURGICAL HISTORY: Carcinoma, bladder. Hypertension. Cholecystectomy. Tonsillectomy. [place] [facility] [place]29/2018. . TECHNIQUE: Multiplanar, multisequence examination of the brain was performed without contrast. FINDINGS: Cerebrum: There is a bilobed area of abnormal signal involving the left occipital and left parietal lobes concerning for a stroke. The lower occipital portion measures 2.7 x 3.2 cm across. The higher l eft parietal region measures 3.8 x 2.4 cm across. White Matter: There is a 5 mm area of increased signal on the diffusion-weighted sequences in the de ep white matter tracts to the right parietal lobe could be an additional small stroke Posterior Fossa: The cerebellum and brainstem are intact. The 4th ventricle is midline. The cerebel lopontine angle is unremarkable. The cerebellar tonsils are normal in position. Diffusion Imaging: Significant perfusion abnormality as described above Extracranial: There is some right maxillary sinus disease. CONCLUSION: 1. Large bilobed stroke in the left occipital and parietal lobes. Significant perfusion abnormality. At this point no significant mass effect. Electronically signed by: Wally Del Rosario MD 03/29/2018 6:12 PM EDT
--- NOTE | 2018-03-29 19:27 | MB ---
cc: Saeid Leavitt MD DATE: 03/29/2018 HISTORY OF PRESENT ILLNESS: This is a 77-year-old right-handed man with a history of hypercholesterolemia, borderline hypertension, Meniere's disease, cancer of the bladder the drain coming out evidently of his kidney posteriorly, and a stent in his ureter. He has some blockage of the ureter. Lymphoma in 2009. He is supposed to have radiation to the bladder. He has been on Depakote for basilar migraine treated by Dr. Manning, where his eyes would roll back and he would get dizzy. He came in here with a UTI. He has had about 3 days of a headache and dizziness. He noted he could not read. He has a history of vision diminished in the left eye due to a clot that went to his eye at one time when they pulled the line out. REVIEW OF SYSTEMS: They deny any diabetes, NV, stent, angioplasty, a fib, Coumadin, chest pain, palpitations, hepatic or pulmonary disease, thyroid disease, lupus, ulcer, seizure or stroke. SOCIAL HISTORY: Nonsmoker, occasional drinker, lives with his . FAMILY HISTORY: Positive for cancer. Negative for seizure or stroke. MEDICATIONS AT HOME: 1. Hydrocodone. 2. Tylenol. 3. Aricept. 4. Depakote 500 a day. 5. Xanax. PHYSICAL EXAMINATION: VITAL SIGNS: Sinus rhythm, blood pressure 143/96, afebrile, pulse 56, respirations 18. NECK: There were no carotid bruits, no vertebral bruits. HEART: Regular rate and rhythm. I did not detect a murmur. NEUROLOGIC: He has got a right homonymous hemianopsia. Pupils are equal. Extraocular movements intact without nystagmus. Face is symmetric with normal sensation. Tongue is midline. No drift. Normal strength in upper and lower extremities bilaterally. DTRs are trace throughout. Toes downgoing bilaterally. Pinprick is intact throughout. He is slightly confused, but he did come up with the month and the year. He is not aphasic. LABORATORY DATA: CBC essentially normal, platelet count normal. Depakote level 30. UA showed 81 white cells. BMP: Creatinine 1.49, GFR is 46. LFTs are normal. Albumin 3. LDL cholesterol 96. Coags normal. MRI of the brain shows an acute left moderately large occipital lobe infarct. There is a tiny one also on the right occipital region. MRA of [place] shows what probably is a small clot or a small dip in the left posterior cerebral artery. No major occlusion. He had a carotid ultrasound that was negative. Echocardiogram shows LA size of 43, normal EF. IMPRESSION: Left occipital infarct with a small one on the right. PLAN: I would be worried about a cardioembolic source. We will check an MRA of the neck. If that is negative, I would recommend a loop recorder and Coumadin. I discussed this with his . She will call Dr. Avila the urologist and make sure that Coumadin is okay with that. I will be following him with you in the hospital. Will also check a CPK and troponin. MD COLLEEN De Leon/katiuska , 07:04 PM , 07:10 PM
[2018-03-29 19:49] LABS: Free T4 (Free Thyroxine) 1.02 ng/dL (0.76-1.46); Thyroid Stimulating Hormone 3.78 uIU/mL (0.358-3.740)
[2018-03-29] MEDS ORDERED: Gadobutrol PF 10 MMOL/10 ML Vial (for RAD) IV.SIG ONE (20:05)
--- NOTE | 2018-03-29 20:28 | MR ---
EXAM DATE: 03/29/2018 8:21 PM EDT AGE/SEX: 77 years / Male INDICATIONS: Ataxia. Headaches. Dizziness. Blurred vision. CLINICAL DATA: This is the patient's initial encounter. Patient reports that signs and symptoms have been present for 1 day and indicates a pain score of 0/10. MEDICAL/SURGICAL HISTORY: Carcinoma, prostatic. Hypertension. Cholecystectomy. Tonsillectomy. COMPARISON: No prior exams available for comparison. TECHNIQUE: 10cc ml Gadavist (gadobutrol) contrast infused MRA (single exam dose) of the extracrania l circulation was performed using a neurovascular coil. Postprocessing was performed, including rota ting sub-volume maximum intensity projections of each carotid artery, rotating full-volume maximum in tensity projections of both carotid arteries, sagittal and coronal sliding thin-slab reformations of each carotid artery, and left oblique sliding thin-slab reformation through the aortic arch to includ e the origin of the arch branch vessels. FINDINGS: Aortic Arch : There is a three-vessel origin of the great vessels from the aorta. No evidence of o stial narrowing. Right Carotid : The common carotid artery is intact. The carotid bulb has a normal configuration wi thout ulceration or narrowing. The internal carotid artery lumen is smooth without stenosis. The ex ternal carotid artery is intact. Left Carotid : The common carotid artery is intact. The carotid bulb has a normal configuration wit hout ulceration or narrowing. The internal carotid artery lumen is smooth without stenosis. The ext ernal carotid artery is intact. Vertebrals : The vertebral arteries have a symmetric diameter. No stenotic lesions are seen. CONCLUSION: 1. Unremarkable MRA neck. Percent stenosis is calculated using the diameter of the stenotic region over the diameter of the nor mal distal internal carotid artery Electronically signed by: Venkat Luo MD 03/29/2018 8:27 PM EDT
[2018-03-29] MEDS: Acetaminophen 325 MG Tablet PO PRN (22:08)
[2018-03-30] MEDS: Sod Chloride 0.9% Inj 1,000 ML IV.CONT SCH ×3 (01:48→17:29)
[2018-03-30] MEDS: Acetaminophen 325 MG Tablet PO PRN ×4 (03:27→21:09)
[2018-03-30 07:50] LABS: Carbon Dioxide 23.3 meq/L (21.0-32.0); Potassium 4.3 meq/L (3.5-5.1)
[2018-03-30 07:59] LABS: Creatine Kinase 39 U/L (39-308)
--- NOTE | 2018-03-30 08:09 | P.PNNEU ---
Subjective Subjective Comments: sr no new co Active Medications: Active Medications Acetaminophen (Tylenol) 650 mg PO Q4H PRN PRN Reason: HEADACHE Last Admin: 03/30/18 03:27 Dose: 650 mg Aspirin (Aspirin) 325 mg PO DAILY [facility] Last Admin: 03/29/18 13:57 Dose: 325 mg Atorvastatin Calcium (Lipitor) 40 mg PO HS [facility] Last Admin: 03/29/18 21:57 Dose: 40 mg Ciprofloxacin HCl (Cipro) 500 mg PO Q12HR [facility] Divalproex Sodium (Depakote Er) 500 mg PO DAILY [facility] Donepezil HCl (Aricept) 10 mg PO DAILY@2100 [facility] Last Admin: 03/29/18 21:56 Dose: 10 mg Enalaprilat (Vasotec Inj) 1.25 mg IV.PUSH Q4H PRN PRN Reason: SBP > 180 Enoxaparin Sodium (Lovenox Inj) 40 mg SQ Q24H [facility] Last Admin: 03/29/18 13:57 Dose: 40 mg Sodium Chloride (Ns Inj) 1,000 mls @ 70 mls/hr IV.CONT .[id number] [facility] Last Admin: 03/30/18 06:39 Dose: 70 mls/hr Polyethylene Glycol (Miralax) 17 gm PO ONCE PRN PRN Reason: CONSTIPATION Last Admin: 03/29/18 21:57 Dose: 17 gm Sodium Chloride (Ns Flush) 2 ml IV.FLUSH BID [facility] Last Admin: 03/29/18 21:57 Dose: 2 ml Sodium Chloride (Ns Flush) 2 ml IV.FLUSH PRN PRN PRN Reason: FLUSH AFTER USING IV ACCESS Allergies/Adverse Reactions: Allergies Allergy/AdvReac Type Severity Reaction Status Date / Time No Known Allergies Allergy Verified 03/29/18 08:13 Physical Exam Vital signs: Vital Signs 03/29/18 10:03 03/29/18 12:00 03/29/18 16:00 Temperature 97.8 F 97.8 F Pulse Rate 77 56 L 66 Respiratory Rate 18 18 18 Blood Pressure 139/92 H 152/89 H 148/83 H Pulse Oximetry 97 98 96 03/29/18 20:00 03/29/18 23:19 03/29/18 23:40 Temperature 97.9 F Pulse Rate 69 63 Respiratory Rate 18 18 Blood Pressure 171/98 H Pulse Oximetry 97 03/30/18 00:00 03/30/18 04:00 03/30/18 04:10 Temperature 97.4 F L 97.8 F Pulse Rate 66 65 Respiratory Rate 17 19 18 Blood Pressure 174/97 H 178/94 H Pulse Oximetry 97 96 Intake & Output 03/29/18 03/30/18 03/30/18 18:59 06:59 18:59 Intake Total 1340 / 1340 1000 / 1000 Output Total 800 / 800 Balance 1340 / 1340 200 / 200 Weight 77.111 kg 80.1 kg Intake: IV 1100 / 1100 1000 / 1000 NS Inj 1,000 ML @ 70 mls/hr IV. 1000 / 1000 CONT .[id number] TERRENCE Rx#:[id number] NS Inj 1,000 ML @ Wide Open IV. 1000 / 1000 SIG BOLUS ONE Rx#:[id number] Rocephin Inj 1,000 MG In NS Inj 100 / 100 100 ML @ 200 mls/hr IV.SIG ONCE ONE Rx#:[id number] Oral 240 / 240 Output: Urine 800 / 800 Other: # Voids 1 3 Date of Last Bowel Movement 03/26/18 03/28/18 Narrative: awake alert r hh 5/5 speech nl Objective Laboratory Results - last 24 hr 03/29/18 03/29/18 03/29/18 08:36 08:38 08:38 WBC 5.1 RBC 4.26 L Hgb 12.9 L Hct 38.9 L MCV 91.4 MCH 30.2 MCHC 33.1 RDW 14.4 Plt Count 178 D MPV 7.9 Neut % (Auto) 69.4 Lymph % (Auto) 16.7 Allen % (Auto) 7.3 Eos % (Auto) 6.2 H Baso % (Auto) 0.4 Neut # (Auto) 3.5 Lymph # (Auto) 0.8 L Allen # (Auto) 0.4 Eos # (Auto) 0.3 Baso # (Auto) 0.0 WBC Differential . Differential Comment Auto diff final PT INR APTT Sodium 140 Potassium 4.0 Chloride 106 Carbon Dioxide 25.6 Anion Gap 8 BUN 22 H Creatinine 1.49 H Estimated GFR 46 L POC Glucose Random Glucose 105 Lactic Acid 1.8 Calcium 8.4 L Total Bilirubin 0.3 AST 12 L ALT 25 Alkaline Phosphatase 82 Ammonia Total Creatine Kinase Troponin I Total Protein 6.3 L Albumin 3.0 L Triglycerides Cholesterol LDL Cholesterol, Calc HDL Cholesterol Cholesterol/HDL Ratio Vitamin B12 TSH Free T4 Urine Color Urine Clarity Urine pH Ur Specific [place] Urine Protein Urine Glucose (UA) Urine Ketones Urine Occult Blood Urine Nitrate Urine Bilirubin Urine Urobilinogen Ur Leukocyte Esterase Urine RBC Urine WBC Amorphous Sediment Urine Bacteria Urine Mucus Micro UA Comment Ur Microscopic Review Urine Culture Comments Valproic Acid 03/29/18 03/29/18 03/29/18 08:38 08:38 10:08 WBC RBC Hgb Hct MCV MCH MCHC RDW Plt Count MPV Neut % (Auto) Lymph % (Auto) Allen % (Auto) Eos % (Auto) Baso % (Auto) Neut # (Auto) Lymph # (Auto) Allen # (Auto) Eos # (Auto) Baso # (Auto) WBC Differential Differential Comment PT INR APTT Sodium Potassium Chloride Carbon Dioxide Anion Gap BUN Creatinine Estimated GFR POC Glucose Random Glucose Lactic Acid Calcium Total Bilirubin AST ALT Alkaline Phosphatase Ammonia 21 Total Creatine Kinase Troponin I Total Protein Albumin Triglycerides Cholesterol LDL Cholesterol, Calc HDL Cholesterol Cholesterol/HDL Ratio Vitamin B12 TSH Free T4 Urine Color Yellow Urine Clarity Hazy H Urine pH 6.0 Ur Specific [place] 1.017 Urine Protein 100 H Urine Glucose (UA) Negative Urine Ketones Negative Urine Occult Blood Moderate H Urine Nitrate Negative Urine Bilirubin Negative Urine Urobilinogen Less than 2 Ur Leukocyte Esterase Moderate H Urine RBC 63 H Urine WBC 81 H Amorphous Sediment Few H Urine Bacteria Rare H Urine Mucus Few H Micro UA Comment Culture indicated Ur Microscopic Review Not Reportable Urine Culture Comments Culture indicated Valproic Acid 30 L 03/29/18 03/29/18 03/29/18 13:08 14:38 14:38 WBC RBC Hgb Hct MCV MCH MCHC RDW Plt Count MPV Neut % (Auto) Lymph % (Auto) Allen % (Auto) Eos % (Auto) Baso % (Auto) Neut # (Auto) Lymph # (Auto) Allen # (Auto) Eos # (Auto) Baso # (Auto) WBC Differential Differential Comment PT 10.2 INR 1.0 APTT 26.6 Sodium Potassium Chloride Carbon Dioxide Anion Gap BUN Creatinine Estimated GFR POC Glucose 105 Random Glucose Lactic Acid Calcium Total Bilirubin AST ALT Alkaline Phosphatase Ammonia Total Creatine Kinase Troponin I Total Protein Albumin Triglycerides 143 Cholesterol 151 LDL Cholesterol, Calc 96 HDL Cholesterol 26.6 L Cholesterol/HDL Ratio 5.67 Vitamin B12 TSH Free T4 Urine Color Urine Clarity Urine pH Ur Specific [place] Urine Protein Urine Glucose (UA) Urine Ketones Urine Occult Blood Urine Nitrate Urine Bilirubin Urine Urobilinogen Ur Leukocyte Esterase Urine RBC Urine WBC Amorphous Sediment Urine Bacteria Urine Mucus Micro UA Comment Ur Microscopic Review Urine Culture Comments Valproic Acid 03/29/18 03/29/18 03/30/18 14:38 21:52 06:50 WBC RBC Hgb Hct MCV MCH MCHC RDW Plt Count MPV Neut % (Auto) Lymph % (Auto) [place] % (Auto) Eos % (Auto) Baso % (Auto) Neut # (Auto) Lymph # (Auto) Allen # (Auto) Eos # (Auto) Baso # (Auto) WBC Differential Differential Comment PT INR APTT Sodium Potassium Chloride Carbon Dioxide Anion Gap BUN Creatinine Estimated GFR POC Glucose 105 Random Glucose Lactic Acid Calcium Total Bilirubin AST ALT Alkaline Phosphatase Ammonia Total Creatine Kinase 39 Troponin I Less than 0.02 L Total Protein Albumin Triglycerides Cholesterol LDL Cholesterol, Calc HDL Cholesterol Cholesterol/HDL Ratio Vitamin B12 560 TSH 3.780 H Free T4 1.02 Urine Color Urine Clarity Urine pH Ur Specific [place] Urine Protein Urine Glucose (UA) Urine Ketones Urine Occult Blood Urine Nitrate Urine Bilirubin Urine Urobilinogen Ur Leukocyte Esterase Urine RBC Urine WBC Amorphous Sediment Urine Bacteria Urine Mucus Micro UA Comment Ur Microscopic Review Urine Culture Comments Valproic Acid 03/30/18 03/30/18 06:50 07:50 WBC RBC Hgb Hct MCV MCH MCHC RDW Plt Count MPV Neut % (Auto) Lymph % (Auto) [place] % (Auto) Eos % (Auto) Baso % (Auto) Neut # (Auto) Lymph # (Auto) [place] # (Auto) Eos # (Auto) Baso # (Auto) WBC Differential Differential Comment PT INR APTT Sodium 141 Potassium 4.3 Chloride 111 H Carbon Dioxide 23.3 Anion Gap 7 BUN 18 Creatinine 1.26 Estimated GFR 56 L POC Glucose 92 Random Glucose 92 Lactic Acid Calcium 8.0 L Total Bilirubin AST ALT Alkaline Phosphatase Ammonia Total Creatine Kinase Troponin I Total Protein Albumin Triglycerides Cholesterol LDL Cholesterol, Calc HDL Cholesterol Cholesterol/HDL Ratio Vitamin B12 TSH Free T4 Urine Color Urine Clarity Urine pH Ur Specific [place] Urine Protein Urine Glucose (UA) Urine Ketones Urine Occult Blood Urine Nitrate Urine Bilirubin Urine Urobilinogen Ur Leukocyte Esterase Urine RBC Urine WBC Amorphous Sediment Urine Bacteria Urine Mucus Micro UA Comment Ur Microscopic Review Urine Culture Comments Valproic Acid Review/Management - Review/Management Plan: imp left occipital cva mra neck nl vb nl echo lab [address] i think he should have loop placed and be coumadinized this will need to be cleared with onc and urology when they ok would med team plz start coumadin
[2018-03-30] MEDS: Aspirin 325 MG Tablet PO SCH (08:15)
[2018-03-30] MEDS: Divalproex 500 MG ER Tablet PO SCH (08:15)
[2018-03-30] MEDS: Ciprofloxacin 500 MG Tablet PO SCH (08:15)
[2018-03-30] MEDS ORDERED: Bisacodyl 10 MG Supp RECTAL PRN (09:48)
--- NOTE | 2018-03-30 10:07 | P.PNFP ---
Subjective Interval history: This is a 77 year old male with recently diagnosed bladder cancer admitted for subacute CVA, headache and confusion. Patient seen and examined this morning, with at bedside. Patient's spouse states that he had been anxious overnight and unable to sleep, which she attributed to being in the hospital. He sometimes takes Xanax at night in order to sleep, due to tinnitus flare ups. He is not on any other medications for anxiety. He states that he is mildly nauseated right now and experienced some mild headaches and lightheaded dizziness overnight, which abated on their own. He continued to experience burning pain with urination, but denies abdominal pain or back pain. No notable drainage or bleeding from the ureterostomy site. Denies increased confusion, generalized for focal weakness, change in vision, chest pain, shortness of breath, palpitations, or falls. Patient's states that she was unable to get in contact with the patient's urologist to confirm whether, or not that patient could be placed on Coumadin per neurology's recommendations. Dr. Avila's office number <Clara Pastor - 03/30/18 10:49> Results - Labs Result diagrams: 03/30/18 11:11 03/30/18 06:50 <Yomi Borden - 03/30/18 14:23> Abnormal lab results 03/29/18 03/29/18 03/30/18 Range/Units 14:38 14:38 06:50 RBC (4.50-5.90) mil/mm3 Hgb (13.0-17.0) gm/dL Hct (39.0-51.0) % Chloride (98-107) meq/L Estimated GFR (>89) mL/min POC Glucose (68-110) mg/dl Calcium (8.5-10.1) mg/dL Troponin I Less than 0.02 L (0.02-0.05) ng/mL HDL Cholesterol 26.6 L (40.0-60.0) mg/dL TSH 3.780 H (0.358-3.740) uIU/mL 03/30/18 03/30/18 03/30/18 Range/Units 06:50 11:11 12:24 RBC 3.98 L (4.50-5.90) mil/mm3 Hgb 12.0 L (13.0-17.0) gm/dL Hct 36.3 L (39.0-51.0) % Chloride 111 H (98-107) meq/L Estimated GFR 56 L (>89) mL/min POC Glucose 129 H (68-110) mg/dl Calcium 8.0 L (8.5-10.1) mg/dL Troponin I (0.02-0.05) ng/mL HDL Cholesterol (40.0-60.0) mg/dL TSH (0.358-3.740) uIU/mL Short CBC 03/30/18 Range/Units 11:11 WBC 4.8 (4.0-11.0) th/mm3 Hgb 12.0 L (13.0-17.0) gm/dL Hct 36.3 L (39.0-51.0) % Plt Count 156 (150-450) th/mm3 BMP 03/30/18 06:50 Sodium 141 Potassium 4.3 Chloride 111 H Carbon Dioxide 23.3 BUN 18 Creatinine 1.26 Calcium 8.0 L Cardiac Enzymes 03/30/18 Range/Units 06:50 Total Creatine Kinase 39 (39-308) U/L Troponin I Less than 0.02 L (0.02-0.05) ng/mL <Yomi Borden - 03/30/18 14:23> Abnormal lab results 03/29/18 03/29/18 03/29/18 Range/Units 10:08 14:38 14:38 Chloride (98-107) meq/L Estimated GFR (>89) mL/min Calcium (8.5-10.1) mg/dL Troponin I (0.02-0.05) ng/mL HDL Cholesterol 26.6 L (40.0-60.0) mg/dL TSH 3.780 H (0.358-3.740) uIU/mL Urine Clarity Hazy H (Clear) Urine Protein 100 H (Neg-Trace) mg/dL Urine Occult Blood Moderate H (Negative) Ur Leukocyte Esterase Moderate H (Negative) Urine RBC 63 H (0-3) /hpf Urine WBC 81 H (0-5) /hpf Amorphous Sediment Few H (None) /hpf Urine Bacteria Rare H (None) /hpf Urine Mucus Few H (Occasional) /lpf 03/30/18 03/30/18 Range/Units 06:50 06:50 Chloride 111 H (98-107) meq/L Estimated GFR 56 L (>89) mL/min Calcium 8.0 L (8.5-10.1) mg/dL Troponin I Less than 0.02 L (0.02-0.05) ng/mL HDL Cholesterol (40.0-60.0) mg/dL TSH (0.358-3.740) uIU/mL Urine Clarity (Clear) Urine Protein (Neg-Trace) mg/dL Urine Occult Blood (Negative) Ur Leukocyte Esterase (Negative) Urine RBC (0-3) /hpf Urine WBC (0-5) /hpf Amorphous Sediment (None) /hpf Urine Bacteria (None) /hpf Urine Mucus (Occasional) /lpf BMP 03/30/18 06:50 Sodium 141 Potassium 4.3 Chloride 111 H Carbon Dioxide 23.3 BUN 18 Creatinine 1.26 Calcium 8.0 L Cardiac Enzymes 03/30/18 Range/Units 06:50 Total Creatine Kinase 39 (39-308) U/L Troponin I Less than 0.02 L (0.02-0.05) ng/mL Urine 03/29/18 Range/Units 10:08 Urine Color Yellow (Yellw/Straw) Urine Clarity Hazy H (Clear) Urine pH 6.0 (5.0-8.5) Ur Specific [place] 1.017 (1.002-1.035) Urine Protein 100 H (Neg-Trace) mg/dL Urine Glucose (UA) Negative (Negative) mg/dL <Clara Pastor - 03/30/18 10:06> - Imaging Impressions Carotid Doppler Study 03/29/18 00:00 CONCLUSION: 1. Right Internal Carotid Artery: No significant stenosis or atherosclerotic plaque is visualized. 2. Left Internal Carotid Artery: No significant stenosis or atherosclerotic plaque is visualized. Head MRA 03/29/18 00:00 CONCLUSION: Negative MRA Cow ([place]) non contrast. Neck MRA 03/29/18 00:00 CONCLUSION: 1. Unremarkable MRA neck. Percent stenosis is calculated using the diameter of the stenotic region over the diameter of the normal distal internal carotid artery Head MRI 03/29/18 11:22 CONCLUSION: 1. Large bilobed stroke in the left occipital and parietal lobes. Significant perfusion abnormality. At this point no significant mass effect. <Yomi Borden - 03/30/18 14:23> Impressions Carotid Doppler Study 03/29/18 00:00 CONCLUSION: 1. Right Internal Carotid Artery: No significant stenosis or atherosclerotic plaque is visualized. 2. Left Internal Carotid Artery: No significant stenosis or atherosclerotic plaque is visualized. Head MRA 03/29/18 00:00 CONCLUSION: Negative MRA Cow ([place]) non contrast. Neck MRA 03/29/18 00:00 CONCLUSION: 1. Unremarkable MRA neck. Percent stenosis is calculated using the diameter of the stenotic region over the diameter of the normal distal internal carotid artery Head MRI 03/29/18 11:22 CONCLUSION: 1. Large bilobed stroke in the left occipital and parietal lobes. Significant perfusion abnormality. At this point no significant mass effect. <Clara Pastor - 03/30/18 10:06> Physical Exam Vital signs: Vital Signs 03/29/18 16:00 03/29/18 20:00 03/29/18 23:19 Temperature 97.8 F 97.9 F Pulse Rate 66 69 Respiratory Rate 18 18 18 Blood Pressure 148/83 H 171/98 H Pulse Oximetry 96 97 03/29/18 23:40 03/30/18 00:00 03/30/18 04:00 Temperature 97.4 F L 97.8 F Pulse Rate 63 66 65 Respiratory Rate 17 19 Blood Pressure 174/97 H 178/94 H Pulse Oximetry 97 96 03/30/18 04:10 03/30/18 08:00 03/30/18 10:54 Temperature 97.7 F Pulse Rate 61 Respiratory Rate 18 20 Blood Pressure 180/92 H Pulse Oximetry 95 98 03/30/18 12:00 Temperature 97.6 F Pulse Rate 73 Respiratory Rate 20 Blood Pressure 163/93 H Pulse Oximetry 95 Intake & Output 03/29/18 03/30/18 03/30/18 18:59 06:59 18:59 Intake Total 1340 / 1340 1000 / 1000 Output Total 800 / 800 750 / 750 Balance 1340 / 1340 200 / 200 -750 / -750 Weight 77.111 kg 80.1 kg Intake: IV 1100 / 1100 1000 / 1000 NS Inj 1,000 ML @ 70 mls/hr IV. 1000 / 1000 CONT .[id number] TERRENCE Rx#:[id number] NS Inj 1,000 ML @ Wide Open IV. 1000 / 1000 SIG BOLUS ONE Rx#:[id number] Rocephin Inj 1,000 MG In NS Inj 100 / 100 100 ML @ 200 mls/hr IV.SIG ONCE ONE Rx#:[id number] Oral 240 / 240 Output: Urine 800 / 800 750 / 750 Other: # Voids 1 3 1 Date of Last Bowel Movement 03/26/18 03/28/18 03/30/18 # Bowel Movements 1 <Yomi Borden - 03/30/18 14:23> Vital Signs 03/29/18 12:00 03/29/18 16:00 03/29/18 20:00 Temperature 97.8 F 97.8 F 97.9 F Pulse Rate 56 L 66 69 Respiratory Rate 18 18 18 Blood Pressure 152/89 H 148/83 H 171/98 H Pulse Oximetry 98 96 97 03/29/18 23:19 03/29/18 23:40 03/30/18 00:00 Temperature 97.4 F L Pulse Rate 63 66 Respiratory Rate 18 17 Blood Pressure 174/97 H Pulse Oximetry 97 03/30/18 04:00 03/30/18 04:10 03/30/18 08:00 Temperature 97.8 F 97.7 F Pulse Rate 65 61 Respiratory Rate 19 18 20 Blood Pressure 178/94 H 180/92 H Pulse Oximetry 96 95 Intake & Output 03/29/18 03/30/18 03/30/18 18:59 06:59 18:59 Intake Total 1340 / 1340 1000 / 1000 Output Total 800 / 800 750 / 750 Balance 1340 / 1340 200 / 200 -750 / -750 Weight 77.111 kg 80.1 kg Intake: IV 1100 / 1100 1000 / 1000 NS Inj 1,000 ML @ 70 mls/hr IV. 1000 / 1000 CONT .[id number] TERRENCE Rx#:[id number] NS Inj 1,000 ML @ Wide Open IV. 1000 / 1000 SIG BOLUS ONE Rx#:[id number] Rocephin Inj 1,000 MG In NS Inj 100 / 100 100 ML @ 200 mls/hr IV.SIG ONCE ONE Rx#:[id number] Oral 240 / 240 Output: Urine 800 / 800 750 / 750 Other: # Voids 1 3 Date of Last Bowel Movement 03/26/18 03/28/18 <Clara Pastor - 03/30/18 10:06> Narrative: GENERAL: 77-year-old male laying in bed comfortably, in no acute distress. SKIN: Warm and dry. HEAD: Atraumatic. Normocephalic. EYES: Pupils equal and round. EMOI. No nystagmus. No scleral icterus. No injection or drainage. ENT: No nasal bleeding or discharge. Mucous membranes pink and moist. CARDIOVASCULAR: Regular rate and rhythm. RESPIRATORY: No accessory muscle use. Clear to auscultation. Breath sounds equal bilaterally. BACK: External ureterostomy tube in place, no notable bleeding, drainage, erythema, swelling noted. GASTROINTESTINAL: Bowel sounds in all 4 quadrants. Abdomen soft, non-tender, nondistended. MUSCULOSKELETAL: Extremities without clubbing, cyanosis, or edema. No obvious deformities. NEUROLOGICAL: Awake and alert. Oriented to self, place, and day. Disoriented to year. Cranial nerves grossly intact. Motor grossly within normal limits. Five out of 5 muscle strength in the arms and legs. Normal speech. <Clara Pastor - 03/30/18 10:49> Assessment and Plan - Assessment (1) Cephalgia Code(s): R51 - Headache Status: Acute Plan: Patient admitted for worsening headache and confusion for the past 3 days, in addition to possible subacute ischemic event noted on imaging studies performed in the ED. Patient has a history of vascular migraines, for which he normally take Divalproex daily. He states that this does have some similar features to vascular migraines in the past. Vascular migraine vs. CVA vs. electrolyte abnormality. CT brain performed in ED showed an "area of abnormal low density, new from the prior study, in the left parietal and occipital lobes measuring approximately 4.4 x 2.8 cm. The appearance favors cytotoxic edema from a subacute ischemic event." MRI/MRA brain showed "large bilobed stroke in the left occipital and parietal lobes with perfusion abnormality, but no mass effect. No evidence for aneurysm, vessel truncation, stenosis or vascular malformation." Echocardiogram showed EF of 55-60 % with mildly dilated left atrium. EKG showed no arrhythmias or evidence of atrial fibrillation. US of the carotids WNL. Lipid panel, PT/PTT/INR & HbA1C WNL. Tylenol 650 mg PO q4hr PRN ASA 325 mg PO qDay Atorvastatin 40 mg PO qDay Enalaprilat 1.25mg IV PRN SBP > 180 Continue home divalproex 500 mg PO qDay Zofran 4mg IV PRN for nausea. Neurology consulted. -MRA neck showed no gross abnormalities. -CPK and Troponin I WNL -Recommend loop recorder placement and anticoagulation with Coumadin. Will start heparin to bridge. -Coumadin 5mg PO started 03/30, with INR goal of 2-3 -Heparin 5000u subcutaneous x1 ordered -Cardiology consulted to evaluate patient for possible loop recorder placement. Cardiac telemetry ordered. Will continue to monitor. Fall precautions. Q4hr neurochecks. PT/OT and rehab medicine consulted for evaluation and treatment. CM consulted for evaluation of needs. (2) Confusion Code(s): R41.0 - Disorientation, unspecified Status: Acute Plan: Patient presents to the ED with increased confusion per spouse. On admission, patient is alert, and oriented x2. He is able to self and place, but is somewhat disoriented to time. He states that it is 2041, but knows today is a Friday. Per , his baseline orientation waxes and wanes, but he is always oriented to self and able to recognize family. He has been more confused since recent cancer surgery 3 weeks ago. Subacute ischemic event vs. UTI vs. advancing dementia. Recommend reorientation, avoid restraints were possible. see cephalgia plan above (3) History of CVA (cerebrovascular accident) Code(s): Z86.73 - Personal history of transient ischemic attack (TIA), and cerebral infarction without residual deficits Status: Acute Plan: CT brain performed in ED, likely consistent with subacute ischemic event. See cephalgia plan above. (4) UTI (urinary tract infection) Code(s): N39.0 - Urinary tract infection, site not specified Status: Acute Plan: UA performed in the ED showed moderate occult blood, moderate leukocyte esterase , 63 RBC, 81 WBC and rare bacteria. Given 1g of rocephin in the ED. Patient also has a history of bladder cancer with internal and external ureteral stent placement. Awaiting urine culture. Ordered Ciprofloxacin 500 mg PO q12hr, Day 2 (5) Bladder cancer Code(s): C67.9 - Malignant neoplasm of bladder, unspecified Status: Chronic Plan: Patient was recently diagnosed with bladder CA about 3 weeks ago and underwent surgical removal of the tumor, with subsequent internal ureteral stent and nephrosomy tube placement. He is not a good candidate for chemotherapy at this time, but has been recommended to start radiation therapy in the near future. Urology initially consulted regarding possible removal of nephrostomy tube removal. Spoke to Dr. Vasquez, who states that this is not an acute issue and recommends that the patient discuss this issue further with his urologist, Dr. Santiago, on an outpatient basis once he is discharged from the hospital. IR consult placed for possible removal of nephrostomy tube. (6) Constipation Code(s): K59.00 - Constipation, unspecified Status: Chronic Plan: Patient has a history of chronic constipation and takes stool softeners at home in addition to Metamucil. Last BM was 3 days ago, small, hard stools. No blood noted. MiraLAX 1 packet as needed for constipation Milk of magnesia 30 ml as needed for constipation (7) Rectal pain Code(s): K62.89 - Other specified diseases of anus and rectum Status: Chronic Plan: Patient has history of rectal pain which started a couple of weeks ago, stating that it is painful to sit. He has been seen by GI specialist, Dr. Goode, and oncologist, Dr. Madden, for this issue who told the patient and family that this is likely due to an enlarged prostate, as no obvious external structural problems have been identified. Tylenol for pain. (8) Dementia Code(s): F03.90 - Unspecified dementia without behavioral disturbance Status: Chronic Plan: Patient has a history of dementia, for which he takes Donepezil at night. He received his last dose, yesterday evening. Will continue home donepezil. (9) Meniere disease Code(s): H81.09 - Meniere's disease, unspecified ear Status: Chronic Plan: Patient has a history of meniere's disease and experiences tinnitus and dizziness periodically and can disrupt his sleep. Takes Xanax 0.5mg PRN for sleep, when he is unable to sleep due to tinnitus. He has only taken this medication 2 times in the past 2 weeks. Will hold Xanax for now, due to confusion. (10) Nutrition, metabolism, and development symptoms Code(s): R63.8 - Other symptoms and signs concerning food and fluid intake Status: Acute Plan: Fluids: Gentle IVF at 70mls/hr. Tolerating PO fluids at this time. Electrolytes: No notable electrolyte abnormalities at this time. Will continue to monitor and replete as needed. Diet: Regular diet (11) DVT prophylaxis Status: Acute Plan: Lovenox 40mg <Clara Pastor - 03/30/18 10:54> - Assessment and Plan See the residents documentation for details. I saw and evaluated the patient regarding the lira portions of this evaluation and agree with the residents findings and plans as written. Parts of this note were created using [employer] voice recognition software program. While efforts were made to correct any mistakes made by this software, some mistakes, errors, and omissions may remain in the final note that were not caught when the note was originally created. Plan of care was discussed and agreed upon with the patient as specifically documented in the above note. An opportunity to ask questions with explanation was provided. Patient voiced understanding on all information reviewed and discussed. <Yomi Borden - 03/30/18 14:23> Patient admitted for stroke workup. <Clara Pastor - 03/30/18 10:52> <Clara Pastor B - Last Filed: 03/30/18 10:54> (1) Cephalgia Qualifiers: Headache type: unspecified Headache chronicity pattern: episodic headache Intractability: intractable Qualified Code(s): R51 - Headache <Clara Pastor B - Last Filed: 03/30/18 10:54> (1) Cephalgia Qualifiers: Headache type: unspecified Headache chronicity pattern: episodic headache Intractability: intractable Qualified Code(s): R51 - Headache
[2018-03-30] MEDS ORDERED: Warfarin Consult Pharmacy OTHER PRN (10:41)
[2018-03-30 12:12] LABS: Hematocrit 36.3 % (39.0-51.0); Mean Corpuscular HGB Conc 33.1 % (32.0-36.0); Mean Corpuscular Hemoglobin 30.2 pg (27.0-34.0); Mean Corpuscular Volume 91.3 fL (80.0-100.0); Mean Platelet Volume 7.6 fL (7.0-11.0); Platelet Count 156 th/mm3 (150-450); Red Blood Count 3.98 mil/mm3 (4.50-5.90); Red Cell Distribution Width 14.5 % (11.6-17.2); White Blood Count 4.8 th/mm3 (4.0-11.0)
--- NOTE | 2018-03-30 12:19 | P.PNWCN ---
Wound Care Nurse Consult Description: Consult for Wound Management of Surgical incision left lower back per Renetta Jaime/Dr Borden Communicated with: FLASH Vital The consult is inappropriate. head esthetician can not make decisions regarding the sutured nephrostomy tube. Recommendation: Notify physician of concerns.
[2018-03-30] MEDS ORDERED: Heparin - SQ 10,000 UNITS/ML Vial SQ SCH ×2 (14:00→21:00)
--- NOTE | 2018-03-30 15:25 | P.CONCA ---
History of Present Illness Service: Cardiology Consult date: 03/30/18 Requesting Physician: Saeid Diaz Reason for Consult: Loop monitor placement Primary Care Provider: Mukund Moody Chief Complaint: headache, confusion History of Present Illness: This is a 77-year-old male with a history of bladder cancer, vascular migraines and dementia. He presented to the emergency department with complaints of dull headache that has progressively been getting worse over the last 3 days. Along with the headache, he complains of increased blurred vision and that he is unable to read the text on TV and that he has been running into [place] due to his depth perception being off. Per the spouse, he also complains of stabbing pain on occasion but mostly just generalized headache. He also states that he is been getting extremely dizzy over the last week. He denies any chest pain, pressure or palpitations during this episode. Currently he denies any chest pain, pressure, palpitations, edema or shortness of breath. He does complain of dizziness and slight headache. He is currently sinus rhythm on the monitor without any episodes of proximal atrial fibrillation. Review of Systems All other systems reviewed negative except as stated in HPI PMFSH - History History Provided By: Patient, Family Member - Medical History Medical History: Medical History (Last Reviewed 03/30/18 @ 09:09 by Yasir Abbott) Bladder cancer Dementia Diverticulosis FHx: cholecystectomy Hematuria Hepatitis C Hypercholesteremia Lymphoma Thoracic aortic aneurysm - Surgical History Surgical History: Surgical History (Last Reviewed 03/30/18 @ 09:09 by Yasir Abbott) History of tonsillectomy S/P ureteral stent placement - Family History Family History: Family History (Last Updated 03/29/18 @ 13:12 by Clara Pastor DO, R1) Other Family history non-contributory - Tobacco History Second Hand Smoke Exposure: No Tobacco Use In Past 30 Days: No Smoking Status: Never smoker - Alcohol History How Often Do You Have a Drink Containing Alcohol: Never - Substance Use History Substance History: No History of Abuse - Travel History Recent Travel in the [place] Within the Last 8 Weeks: No Recent Travel Out of the Country Within the Last 8 Weeks: No - Immunization History Tetanus Immunization: Unsure Hx Influenza Vaccine This Season: No Medications and Allergies Allergies Allergy/AdvReac Type Severity Reaction Status Date / Time No Known Allergies Allergy Verified 03/29/18 08:13 Home Medications Medication Instructions Recorded Confirmed Type alprazolam [Xanax] 0.25 mg PO DAILY 03/17/18 03/29/18 History divalproex 500 mg PO DAILY 03/17/18 03/29/18 History donepezil 10 mg PO DAILY 03/17/18 03/29/18 History acetaminophen 500 mg PO Q6H PRN 03/29/18 03/29/18 History hydrocodone-acetaminophen 0.5 tab PO Q3H PRN 03/29/18 03/29/18 History Active Medications: Active Medications Acetaminophen (Tylenol) 650 mg PO Q4H PRN PRN Reason: HEADACHE Last Admin: 03/30/18 14:32 Dose: 650 mg Al Hydroxide/Mg Hydroxide (Milk Of Magnesia Liq) 30 ml PO Q12H PRN PRN Reason: Mild Constipation Aspirin (Aspirin) 325 mg PO DAILY [facility] Last Admin: 03/30/18 08:15 Dose: 325 mg Atorvastatin Calcium (Lipitor) 40 mg PO HS [facility] Last Admin: 03/29/18 21:57 Dose: 40 mg Bisacodyl (Dulcolax Supp) 10 mg RECTAL DAILY PRN PRN Reason: SEVERE CONSITIPATION Ciprofloxacin HCl (Cipro) 500 mg PO Q12HR [facility] Last Admin: 03/30/18 08:15 Dose: 500 mg Divalproex Sodium (Depakote Er) 500 mg PO DAILY [facility] Last Admin: 03/30/18 08:15 Dose: 500 mg Donepezil HCl (Aricept) 10 mg PO DAILY@2100 [facility] Last Admin: 03/29/18 21:56 Dose: 10 mg Enalaprilat (Vasotec Inj) 1.25 mg IV.PUSH Q4H PRN PRN Reason: SBP > 180 Last Admin: 03/30/18 08:24 Dose: 1.25 mg Heparin Sodium (Porcine) (Heparin Inj) 5,000 units SQ BID [facility] Sodium Chloride (Ns Inj) 1,000 mls @ 70 mls/hr IV.CONT .[id number] [facility] Last Admin: 03/30/18 06:39 Dose: 70 mls/hr Lactulose (Lactulose Liq) 30 ml PO DAILY PRN PRN Reason: SEVERE CONSITIPATION Last Admin: 03/30/18 10:25 Dose: 30 ml Ondansetron HCl (Zofran Inj) 4 mg IV.PUSH Q8H PRN PRN Reason: NAUSEA Last Admin: 03/30/18 10:24 Dose: 4 mg Pharmacy Profile Note (Coumadin Consult Pharmacy) 1 each OTHER UNSCH PRN PRN Reason: PHARMACY DOCUMENTATION Polyethylene Glycol (Miralax) 17 gm PO ONCE PRN PRN Reason: CONSTIPATION Last Admin: 03/29/18 21:57 Dose: 17 gm Senna/Docusate Sodium (Lissette-Colace) 1 tab PO BID [facility] Sennosides (Senokot) 17.2 mg PO Q12H PRN PRN Reason: Moderate Constipation Sodium Chloride (Ns Flush) 2 ml IV.FLUSH BID [facility] Last Admin: 03/30/18 08:15 Dose: Not Given Sodium Chloride (Ns Flush) 2 ml IV.FLUSH PRN PRN PRN Reason: FLUSH AFTER USING IV ACCESS Warfarin Sodium (Coumadin) 5 mg PO ONCE ONE Stop: 03/30/18 16:01 Warfarin Sodium (Coumadin) 2.5 mg PO DAILY@1600 [facility] Exam Vital signs: Vital Signs 03/29/18 16:00 03/29/18 20:00 03/29/18 23:19 Temperature 97.8 F 97.9 F Pulse Rate 66 69 Respiratory Rate 18 18 18 Blood Pressure 148/83 H 171/98 H Pulse Oximetry 96 97 03/29/18 23:40 03/30/18 00:00 03/30/18 04:00 Temperature 97.4 F L 97.8 F Pulse Rate 63 66 65 Respiratory Rate 17 19 Blood Pressure 174/97 H 178/94 H Pulse Oximetry 97 96 03/30/18 04:10 03/30/18 08:00 03/30/18 10:54 Temperature 97.7 F Pulse Rate 61 Respiratory Rate 18 20 Blood Pressure 180/92 H Pulse Oximetry 95 98 03/30/18 12:00 Temperature 97.6 F Pulse Rate 73 Respiratory Rate 20 Blood Pressure 163/93 H Pulse Oximetry 95 Intake & Output 03/29/18 03/30/18 03/30/18 18:59 06:59 18:59 Intake Total 1340 / 1340 1000 / 1000 Output Total 800 / 800 750 / 750 Balance 1340 / 1340 200 / 200 -750 / -750 Weight 77.111 kg 80.1 kg Intake: IV 1100 / 1100 1000 / 1000 NS Inj 1,000 ML @ 70 mls/hr IV. 1000 / 1000 CONT .[id number] [facility] Rx#:[id number] NS Inj 1,000 ML @ Wide Open IV. 1000 / 1000 [facility] Rx#:[id number] Rocephin Inj 1,000 MG In NS Inj 100 / 100 100 ML @ 200 mls/hr IV.SIG ONCE ONE Rx#:[id number] Oral 240 / 240 Output: Urine 800 / 800 750 / 750 Other: # Voids 1 3 1 Date of Last Bowel Movement 03/26/18 03/28/18 03/30/18 # Bowel Movements 1 - Constitutional no acute distress - Routine HEENT Exam Head: Present: normocephalic Eye: Present: PERRL ENT: Present: mucous membranes moist - Routine Neck Exam Present: full ROM - Routine Respiratory Exam Present: CTA bilaterally - Routine Cardiovascular Exam Present: S1, S2. Absent: murmur, gallop, rubs - Routine Abdominal Exam Present: normoactive bowel sounds - Routine Extremities Exam Present: full ROM, pulses intact, normal capillary refill. Absent: cyanosis, clubbing, edema - Routine Skin Exam Present: intact - Routine Neurological Exam Present: moving all extremities, normal tone Patient has dementia he is alert and oriented to self and place but is disoriented on time. Results 03/30/18 11:11 03/30/18 06:50 Cardiac Enzymes 03/29/18 03/30/18 Range/Units 08:36 06:50 AST 12 L (15-37) U/L Troponin I Less than 0.02 L (0.02-0.05) ng/mL Coagulation 03/29/18 Range/Units 14:38 PT 10.2 (9.8-11.6) sec APTT 26.6 (24.3-30.1) sec Lipids 03/29/18 Range/Units 14:38 Triglycerides 143 (42-150) mg/dL Cholesterol 151 (120-200) mg/dL HDL Cholesterol 26.6 L (40.0-60.0) mg/dL Cholesterol/HDL Ratio 5.67 Ratio CBC 03/29/18 03/30/18 Range/Units 08:38 11:11 WBC 5.1 4.8 (4.0-11.0) th/mm3 RBC 4.26 L 3.98 L (4.50-5.90) mil/mm3 Hgb 12.9 L 12.0 L (13.0-17.0) gm/dL Hct 38.9 L 36.3 L (39.0-51.0) % Plt Count 178 D 156 (150-450) th/mm3 Neut # (Auto) 3.5 (1.8-7.7) th/mm3 Lymph # (Auto) 0.8 L (1.0-4.8) th/mm3 [place] # (Auto) 0.4 (0.0-0.9) th/mm3 Eos # (Auto) 0.3 (0.0-0.4) th/mm3 Baso # (Auto) 0.0 (0.0-0.2) th/mm3 Comprehensive Metabolic Panel 03/29/18 03/30/18 Range/Units 08:36 06:50 Sodium 140 141 (136-145) meq/L Potassium 4.0 4.3 (3.5-5.1) meq/L Chloride 106 111 H (98-107) meq/L Carbon Dioxide 25.6 23.3 (21.0-32.0) meq/L BUN 22 H 18 (7-18) mg/dL Creatinine 1.49 H 1.26 (0.60-1.30) mg/dL Calcium 8.4 L 8.0 L (8.5-10.1) mg/dL AST 12 L (15-37) U/L ALT 25 (12-78) U/L Alkaline Phosphatase 82 (45-117) U/L Total Protein 6.3 L (6.4-8.2) g/dL Albumin 3.0 L (3.4-5.0) g/dL Intake and Output 03/30/18 03/30/18 03/30/18 06:59 14:59 22:59 Intake Total 1000 / 1000 Output Total 800 / 800 750 / 750 Balance 200 / 200 -750 / -750 Intake: IV 1000 / 1000 NS Inj 1,000 ML @ 70 mls/hr IV. 1000 / 1000 CONT .[id number] [facility] Rx#:[id number] Output: Urine 800 / 800 750 / 750 Other: # Voids 3 1 Date of Last Bowel Movement 03/30/18 # Bowel Movements 1 Weight 80.1 kg - Imaging and Cardiology Imaging: Impressions Carotid Doppler Study 03/29/18 00:00 CONCLUSION: 1. Right Internal Carotid Artery: No significant stenosis or atherosclerotic plaque is visualized. 2. Left Internal Carotid Artery: No significant stenosis or atherosclerotic plaque is visualized. Head MRA 03/29/18 00:00 CONCLUSION: Negative MRA [place] ([place]) non contrast. Neck MRA 03/29/18 00:00 CONCLUSION: 1. Unremarkable MRA neck. Percent stenosis is calculated using the diameter of the stenotic region over the diameter of the normal distal internal carotid artery Abdomen X-Ray 03/29/18 08:30 CONCLUSION: No acute abnormality is identified. Left ureteral stent and presumed percutaneous nephrostomy tube are present. Head CT 03/29/18 08:30 CONCLUSION: 1. Area of abnormal low density, new from the prior study, in the left parietal and occipital lobes measuring approximately 4.4 x 2.8 cm. The appearance favors cytotoxic edema from a subacute ischemic event. This could be further characterized with a brain MRI, if needed. 2. Chronic findings include mild generalized atrophy and mild periventricular white matter low-attenuation likely representing chronic microvascular ischemia. . Head MRI 03/29/18 11:22 CONCLUSION: 1. Large bilobed stroke in the left occipital and parietal lobes. Significant perfusion abnormality. At this point no significant mass effect. Assessment and Plan - Assessment (1) Obstructive uropathy Code(s): N13.9 - Obstructive and reflux uropathy, unspecified Status: Acute (2) CVA (cerebral vascular accident) Code(s): I63.9 - Cerebral infarction, unspecified Status: Acute (3) Chronic kidney disease Code(s): N18.9 - Chronic kidney disease, unspecified Status: Acute (4) Cephalgia Code(s): R51 - Headache Status: Acute (5) Confusion Code(s): R41.0 - Disorientation, unspecified Status: Acute (6) Bladder cancer Code(s): C67.9 - Malignant neoplasm of bladder, unspecified Status: Chronic (7) UTI (urinary tract infection) Code(s): N39.0 - Urinary tract infection, site not specified Status: Acute (8) Dementia Code(s): F03.90 - Unspecified dementia without behavioral disturbance Status: Chronic - Plan Due to patient's past medical history and the presenting symptoms, we will plan on placing a loop monitor to evaluate for paroxysmal atrial fibrillation. Procedure discussed with patient and at the bedside. Patient and verbalized understanding and agreed to proceed with loop placement. Patient to be NPO after midnight. Have consent signed for loop monitor placement and placed on chart. The patient was seen and evaluated by Dr. Juan who participated in care, management and decision-making. - Attending Attestation Patient seen and examined. I reviewed and agree with the evaluation and plan as presented. Will proceed with loop monitor placement to evaluate for paroxysmal atrial fibrillation as a reason for his recent neurologic event. D/w pt and . (2) CVA (cerebral vascular accident) Qualifiers: CVA mechanism: unspecified Qualified Code(s): I63.9 - Cerebral infarction, unspecified (3) Chronic kidney disease Qualifiers: Chronic kidney disease stage: unspecified stage Qualified Code(s): N18.9 - Chronic kidney disease, unspecified (4) Cephalgia Qualifiers: Headache type: unspecified Headache chronicity pattern: episodic headache Intractability: intractable Qualified Code(s): R51 - Headache (7) UTI (urinary tract infection) Qualifiers: Indwelling urinary catheter type: indwelling urethral catheter
[2018-03-30 17:16] LABS: Hemoglobin A1c 6.1 % (4.3-6.0)
--- NOTE | 2018-03-30 18:19 | ECG ---
Date Performed: 03/29/2018 Time Performed: 16:37:47 PTAGE: 77 years EKG: Sinus rhythm NORMAL ECG PREVIOUS TRACING : 05/23/2017 08.43 Since the previous tracing, no significant change noted DOCTOR: Saeid Treadwell Interpretating Date/Time 03/30/2018 18:17:00
[2018-03-30] MEDS: Senna/Docusate Sodium 8.6/50 MG Tablet PO SCH (21:10)
[2018-03-31] MEDS: Acetaminophen 325 MG Tablet PO PRN ×3 (04:42→19:09)
--- NOTE | 2018-03-31 06:36 | CT ---
EXAM DATE: 03/31/2018 6:28 AM EDT AGE/SEX: 77 years / Male INDICATIONS: Severe headache. CLINICAL DATA: This is the patient's initial encounter. Patient reports that signs and symptoms have been present for 1 day and indicates a pain score of 9/10. MEDICAL/SURGICAL HISTORY: Carcinoma, bladder. Cerebrovascular disease. Diverticulitis. Lymphoma. Dementia. Hep C. Cholecystectomy. RADIATION DOSE: 37.10 CTDI (mGy) [place] [facility] [place]. . TECHNIQUE: CT of the head without contrast. Using automated exposure control and adjustment of the mA and/or kV according to patient size, radiation dose was kept as low as reasonably achievable to ob tain optimal diagnostic quality images. DICOM format image data is available electronically for revi ew and comparison. FINDINGS: Approximately 4 cm subacute infarct of the left occipital and posterior parietal lobe again seen and not significantly changed. No other or new infarct demonstrated. There is no intracranial hemorrhage or hematoma. No mass, mass effect or midline shift. Bone window images show an intact skull. Visualized paranasal sinuses and mastoid air cells are clear . CONCLUSION: 1. Slowly evolving subacute left parieto-occipital infarct. 2. No new infarct demonstrated. No bleed, mass effect or other acute complication. . Electronically signed by: Harley Hare MD 03/31/2018 6:35 AM EDT
--- NOTE | 2018-03-31 08:19 | P.PNNEU ---
Subjective Subjective Comments: sr Active Medications: Active Medications Acetaminophen (Tylenol) 650 mg PO Q4H PRN PRN Reason: HEADACHE Last Admin: 03/31/18 04:42 Dose: 650 mg Al Hydroxide/Mg Hydroxide (Milk Of Magnesia Liq) 30 ml PO Q12H PRN PRN Reason: Mild Constipation Apixaban (Eliquis) 5 mg PO BID [facility] Atorvastatin Calcium (Lipitor) 40 mg PO HS [facility] Last Admin: 03/30/18 21:10 Dose: 40 mg Bisacodyl (Dulcolax Supp) 10 mg RECTAL DAILY PRN PRN Reason: SEVERE CONSITIPATION Ciprofloxacin HCl (Cipro) 500 mg PO Q12HR [facility] Last Admin: 03/30/18 08:15 Dose: 500 mg Divalproex Sodium (Depakote Er) 500 mg PO DAILY [facility] Last Admin: 03/30/18 08:15 Dose: 500 mg Donepezil HCl (Aricept) 10 mg PO DAILY@2100 [facility] Last Admin: 03/30/18 21:10 Dose: 10 mg Enalaprilat (Vasotec Inj) 1.25 mg IV.PUSH Q4H PRN PRN Reason: SBP > 180 Last Admin: 03/30/18 08:24 Dose: 1.25 mg Sodium Chloride (Ns Inj) 1,000 mls @ 70 mls/hr IV.CONT .[id number] [facility] Last Infusion: 03/30/18 21:16 Dose: Infused Lactulose (Lactulose Liq) 30 ml PO DAILY PRN PRN Reason: SEVERE CONSITIPATION Last Admin: 03/30/18 10:25 Dose: 30 ml Ondansetron HCl (Zofran Inj) 4 mg IV.PUSH Q8H PRN PRN Reason: NAUSEA Last Admin: 03/30/18 18:23 Dose: 4 mg Polyethylene Glycol (Miralax) 17 gm PO ONCE PRN PRN Reason: CONSTIPATION Last Admin: 03/29/18 21:57 Dose: 17 gm Senna/Docusate Sodium (Lissette-Colace) 1 tab PO BID [facility] Last Admin: 03/30/18 21:10 Dose: 1 tab Sennosides (Senokot) 17.2 mg PO Q12H PRN PRN Reason: Moderate Constipation Sodium Chloride (Ns Flush) 2 ml IV.FLUSH BID [facility] Last Admin: 03/30/18 21:10 Dose: 2 ml Sodium Chloride (Ns Flush) 2 ml IV.FLUSH PRN PRN PRN Reason: FLUSH AFTER USING IV ACCESS Allergies/Adverse Reactions: Allergies Allergy/AdvReac Type Severity Reaction Status Date / Time No Known Allergies Allergy Verified 03/29/18 08:13 Physical Exam Vital signs: Vital Signs 03/30/18 10:54 03/30/18 12:00 03/30/18 16:00 Temperature 97.6 F 98.3 F Pulse Rate 82 78 Respiratory Rate 20 20 Blood Pressure 163/93 H 143/87 H Pulse Oximetry 98 95 97 03/30/18 20:00 03/31/18 01:15 03/31/18 01:31 Temperature 97.6 F Pulse Rate 69 Respiratory Rate Blood Pressure 157/93 H 175/93 H 159/90 H Pulse Oximetry 96 03/31/18 06:07 Temperature Pulse Rate Respiratory Rate 20 Blood Pressure Pulse Oximetry Intake & Output 03/30/18 03/31/18 03/31/18 18:59 06:59 18:59 Intake Total 1250 / 1250 Output Total 750 / 750 1400 / 1400 Balance -750 / -750 -150 / -150 Weight 73.9 kg Intake: IV 1000 / 1000 NS Inj 1,000 ML @ 70 mls/hr IV. 1000 / 1000 CONT .[id number] [facility] Rx#:[id number] Oral 250 / 250 Output: Urine 750 / 750 1400 / 1400 Other: # Voids 1 4 Date of Last Bowel Movement 03/30/18 03/31/18 # Bowel Movements 1 2 Narrative: r hh 5/5 some r neglect vision Objective Laboratory Results - last 24 hr 03/29/18 03/30/18 03/30/18 14:38 11:11 12:24 WBC 4.8 RBC 3.98 L Hgb 12.0 L Hct 36.3 L MCV 91.3 MCH 30.2 MCHC 33.1 RDW 14.5 Plt Count 156 MPV 7.6 POC Glucose 129 H Hemoglobin A1c 6.1 H 03/30/18 03/30/18 03/30/18 17:21 18:01 21:22 WBC RBC Hgb Hct MCV MCH MCHC RDW Plt Count MPV POC Glucose 172 H 111 H 98 Hemoglobin A1c 03/31/18 07:32 WBC RBC Hgb Hct MCV MCH MCHC RDW Plt Count MPV POC Glucose 105 Hemoglobin A1c Microbiology 03/29/18 10:08 Urine Culture - Preliminary Clean Catch Urine Immature growth - reincubate Review/Management - Review/Management Plan: imp left occipital cva mra neck nl vb nl echo lab [address] i think he should have loop placed and be coumadinized this will need to be cleared with onc and urology when they ok would med team plz start coumadin 03/31/18 dr rascon to take over anticoag stable neuro fall risk to right i dw no loop px poor per onc ok dc neurowise when onc decides
[2018-03-31] MEDS: Sod Chloride 0.9% Inj 1,000 ML IV.CONT SCH (08:26)
[2018-03-31] MEDS: Divalproex 500 MG ER Tablet PO SCH (08:26)
[2018-03-31] MEDS: Senna/Docusate Sodium 8.6/50 MG Tablet PO SCH ×2 (08:26→22:02)
[2018-03-31 08:55] LABS: Prothrombin Time 10.2 sec (9.8-11.6)
[2018-03-31 09:03] LABS: Baso % (Auto) 0.3 % (0.0-2.0); Eos # (Auto) 0.2 th/mm3 (0.0-0.4); Eos % (Auto) 3.8 % (0.0-4.0); Hematocrit 34.9 % (39.0-51.0); Hemoglobin 11.5 gm/dL (13.0-17.0); Lymph # (Auto) 0.6 th/mm3 (1.0-4.8); Lymph % (Auto) 11.1 % (9.0-44.0); Mean Corpuscular Hemoglobin 30.6 pg (27.0-34.0); Mean Corpuscular Volume 92.9 fL (80.0-100.0); Mean Platelet Volume 7.6 fL (7.0-11.0); Mono # (Auto) 0.4 th/mm3 (0.0-0.9); Mono % (Auto) 7.9 % (0.0-8.0); Neut # (Auto) 3.8 th/mm3 (1.8-7.7); Neut % (Auto) 76.9 % (16.0-70.0); Platelet Count 145 th/mm3 (150-450); Red Blood Count 3.75 mil/mm3 (4.50-5.90); Red Cell Distribution Width 14.7 % (11.6-17.2)
[2018-03-31 09:26] LABS: Albumin 2.9 g/dL (3.4-5.0); Anion Gap 7 meq/L (5-15); Aspartate Aminotransferase 12 U/L (15-37); Blood Urea Nitrogen 14 mg/dL (7-18); Calcium 8.4 mg/dL (8.5-10.1); Carbon Dioxide 27.7 meq/L (21.0-32.0); Chloride 108 meq/L (98-107); Glomerular Filtration Rate 52 mL/min (>89); Glucose,Random 94 mg/dL (74-106); Potassium 4.2 meq/L (3.5-5.1); Sodium 143 meq/L (136-145)
[2018-03-31 09:27] LABS: Alanine Aminotransferase 23 U/L (12-78)
[2018-03-31 09:28] LABS: Alkaline Phosphatase 80 U/L (45-117); Total Protein 6.1 g/dL (6.4-8.2)
--- NOTE | 2018-03-31 10:07 | P.DCO ---
- Physical Therapy Order: Evaluate and treat, Improve ambulation, Strength and gait training - Occupational Therapy Order: Evaluate and treat - Home Health Nursing Order: Medical education - Case Management Consult Yes - Certification I have seen patient Kishore Cole on 03/31/18. My clinical findings support the need for the requested home health care services because: Limited ability to care for self I certify that my clinical findings support that this patient is homebound because: Impaired cognitive ability/safety
--- NOTE | 2018-03-31 10:29 | P.CONPAL ---
Consult Service: Palliative Care Requesting Physician: Nathaniel Madden Reason for Consult: a. To assist with evaluation and management of symptoms including:headache, pain, debility b. To assist medical decision maker(s) with: better understanding of current medical conditions; weighing benefits/burdens of medical treatment options; making medical treatment decisions. Primary Care Provider: Mukund Moody History of Present Illness History of Present Illness: Mr. Cole is a 27-year-old male who presented to [facility] on 03/29/18 with complaints of progressively worse headache. 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 Patient reported pain was mostly temporal and frontal with a severity of 5 out of 10 and increasing, dull and constant was unable to find relief. Of note the patient was also following with the urologist last week who had placed internal stents in the left kidney as well as an external stent. His bag was removed a few days ago. He also was complaining of increasing rectal pain. He had followed up with Dr. Goode as an outpatient this was felt to be due to an enlarged left prostate. Given his complicated history the patient was admitted for further evaluation and treatment. Initial emergency room evaluation revealed: * Temp 97.8, pulse 109, respiratory rate 24, BP 143/96, pulse ox 96% on room air * WBC 5.1, Hgb 12.9, HCT 38.9, RBC 4.26, platelets 178 * NA 140, K+ 4.0, CL 106, CO2 25.6, BUN 22, creatinine 1.49, estimated GFR 46, glucose 105 * Lactic acid 1.8, calcium 8.4, total bili 0.3, AST 12, ALT 25, alkaline phosphatase 82, total protein 6.3, valproic acid 30, ammonia 21 * Abdominal x-ray: No acute abnormalities identified. Left ureteral stent and presumed percutaneous nephrostomy tube are present. The patient was admitted to their neurology for for further evaluation. Started on IV hydration and head CT was ordered. This did reveal an area of abnormal low density which was new from prior study in the left parietal and occipital lobes. This is concerning for cytotoxic edema from a subacute ischemic event an MRI was ordered for further evaluation. MRI revealed a large bilobed stroke in the left occipital and parietal lobes. Significant perfusion abnormalities with no mass-effect at that time. Follow-up CAT scan done on showed slowly evolving subacute left parietal occipital infarct with no new bleed mass-effect or other acute complications. Dr. Leavitt (neurology) was consulted to manage CVA and symptoms. There was also concern that the patient now had increasing visual changes bilaterally. He felt that this may have been the result of some sort of cardioembolic process and consulted Dr. cohen (cardiology). Originally there was plans to have loop monitor placed but given the patient's underlying progression of bladder cancer, the decision was made to forego monitor placement and have patient placed on anticoagulation. Dr. Madden (oncology) was consulted as he is known to the patient and felt that he was no longer a candidate for continued/aggressive chemotherapy and radiation. He did consult Dr. Gandhi (radiation oncology) to discuss possible palliative options for radiation. Palliative care was consulted to assist with symptom management and to discuss goals of care moving forward. Upon evaluation the patient is awake and alert. He complains of some headache at about 5 out of 10 bilateral and frontal. He states this headache is better than the headache that brought him into the emergency room originally. He is somewhat repetitive in his conversation though not definitively aphasic. He is oriented to self and states the years 2020. He is able to name the president he understands that he is in the hospital but is unable to recall the events of his hospital course. He states that he does remember that he had a stroke. Discussion concerning goals of care , medical trajectory, etc. to follow. Function/Cognitive Trajectory: The patient had been suffering with dizziness and inept depth perception for some time though was able to ambulate daily with his . If they were unable to walk on the beach they would at least walk on the bottom floor of their condo which is approximately 10 yards. They would try to do this at least twice a day for 5 labs. He was independent of ambulation in small areas and most ADLs. Their condo is on the third floor but he does have an elevator does not need to navigate stairs. Review of Systems Genitourinary: Reports decreased urination, Reports difficulty urinating, Reports painful urination, Reports urinary incontinence Neurologic: Reports headache(s), Reports loss of vision, Reports other visual disturbances PMF - History History Provided By: Patient, Family Member - Medical History Medical History: Medical History (Last Reviewed 03/30/18 @ 09:09 by Yasir Abbott) Bladder cancer Dementia Diverticulosis Hematuria Hepatitis C Hypercholesteremia Lymphoma Thoracic aortic aneurysm - Surgical History Surgical History: Surgical History (Last Updated 03/31/18 @ 15:15 by MARU Cespedes) FHx: cholecystectomy History of tonsillectomy S/P ureteral stent placement - Family History Family History: Family History (Last Updated 03/31/18 @ 15:57 by MARU Cespedes) Brother Myocardial infarct Other Parents - Social History I have reviewed the patient's Social History: Yes - Tobacco History Second Hand Smoke Exposure: No Tobacco Use In Past 30 Days: No Smoking Status: Former smoker Number of Pack Years (if former smoker): 30 - Alcohol History How Often Do You Have a Drink Containing Alcohol: 2 to 4 times a month - Substance Use History Substance History: No History of Abuse - Travel History History of Recent Travel: No Recent Travel in the [place] Within the Last 8 Weeks: No Recent Travel Out of the Country Within the Last 8 Weeks: No - Immunization History Tetanus Immunization: Unsure Hx Influenza Vaccine This Season: No Medications and Allergies Active Medications: Active Medications Acetaminophen (Tylenol) 650 mg PO Q4H PRN PRN Reason: HEADACHE Last Admin: 03/31/18 04:42 Dose: 650 mg Al Hydroxide/Mg Hydroxide (Milk Of Mani Mujica) 30 ml PO Q12H PRN PRN Reason: Mild Constipation Apixaban (Eliquis) 5 mg PO BID [facility] Last Admin: 03/31/18 08:26 Dose: 5 mg Atorvastatin Calcium (Lipitor) 40 mg PO HS [facility] Last Admin: 03/30/18 21:10 Dose: 40 mg Bisacodyl (Dulcolax Supp) 10 mg RECTAL DAILY PRN PRN Reason: SEVERE CONSITIPATION Ciprofloxacin HCl (Cipro) 500 mg PO Q12HR [facility] Last Admin: 03/30/18 08:15 Dose: 500 mg Divalproex Sodium (Depakote Er) 500 mg PO DAILY [facility] Last Admin: 03/31/18 08:26 Dose: 500 mg Donepezil HCl (Aricept) 10 mg PO DAILY@2100 [facility] Last Admin: 03/30/18 21:10 Dose: 10 mg Enalaprilat (Vasotec Inj) 1.25 mg IV.PUSH Q4H PRN PRN Reason: SBP > 180 Last Admin: 03/30/18 08:24 Dose: 1.25 mg Lactulose (Lactulose Liq) 30 ml PO DAILY PRN PRN Reason: SEVERE CONSITIPATION Last Admin: 03/30/18 10:25 Dose: 30 ml Ondansetron HCl (Zofran Inj) 4 mg IV.PUSH Q8H PRN PRN Reason: NAUSEA Last Admin: 03/30/18 18:23 Dose: 4 mg Polyethylene Glycol (Miralax) 17 gm PO ONCE PRN PRN Reason: CONSTIPATION Last Admin: 03/29/18 21:57 Dose: 17 gm Senna/Docusate Sodium (Lissette-Colace) 1 tab PO BID TERRENCE Last Admin: 03/31/18 08:26 Dose: 1 tab Sennosides (Senokot) 17.2 mg PO Q12H PRN PRN Reason: Moderate Constipation Sodium Chloride (Ns Flush) 2 ml IV.FLUSH BID TERRENCE Last Admin: 03/31/18 08:30 Dose: Not Given Sodium Chloride (Ns Flush) 2 ml IV.FLUSH PRN PRN PRN Reason: FLUSH AFTER USING IV ACCESS Allergies Allergy/AdvReac Type Severity Reaction Status Date / Time No Known Allergies Allergy Verified 03/29/18 08:13 Home Medications Medication Instructions Recorded Confirmed Type divalproex 500 mg PO DAILY 03/17/18 04/02/18 History donepezil 10 mg PO DAILY 03/17/18 04/02/18 History Advance Directives Living Will: No Healthcare Surrogate: No Power of Careers Adviser: No Documented care wishes: The patient does not currently have a documented living will or 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 Cole is currently able to participate in his own care and verbalized that his focus now is comfort oriented as well as keeping his functional status at baseline or better. He states he wants to enjoy his time left. In discussion at bedside with his . The patient verbalized that he would like to be able to go home and continue his basic level of functioning which included going out to dinner, visiting with friends, and daily walks with his . He states that he does not think that he would like much more invasive procedures but would consider radiation if it offered a palliative effect. He would like to weigh the risks and benefits of doing so. His was present during this conversation and in agreement. Family/friends goals: See above Ethical and Legal Issues: In the absence of a documented living will, per [place] statutes, decision making falls to the patient's Zuri Cole should he not be able to participate in his own healthcare decision making. Physical Exam Vital Signs: Vital Signs - 24 hr 03/30/18 10:54 03/30/18 12:00 03/30/18 16:00 Temperature 97.6 F 98.3 F Pulse Rate 82 78 Respiratory Rate 20 20 Blood Pressure 163/93 H 143/87 H Pulse Oximetry 98 95 97 03/30/18 20:00 03/31/18 01:15 03/31/18 01:31 Temperature 97.6 F Pulse Rate 69 Respiratory Rate Blood Pressure 157/93 H 175/93 H 159/90 H Pulse Oximetry 96 03/31/18 06:07 03/31/18 08:00 03/31/18 09:06 Temperature 97.9 F Pulse Rate 57 L 97 H Respiratory Rate 20 18 Blood Pressure 160/91 H Pulse Oximetry 97 97 I&O: Intake & Output 03/29/18 03/30/18 03/31/18 04/01/18 06:59 06:59 06:59 06:59 Intake Total 2340 / 2340 1250 / 1250 Output Total 800 / 800 2150 / 2150 Balance 1540 / 1540 -900 / -900 Weight 80.1 kg 73.9 kg Physical Exam: CONSTITUTIONAL/GENERAL: This is an adequately nourished patient, in no apparent distress. TUBES/LINES/DRAINS: PIV, adult brief,, left nephrostomy tube SKIN: No jaundice, rashes, or lesions. No wounds seen anteriorly. Skin temperature appropriate. Not diaphoretic. HEAD: Atraumatic. Normocephalic. EYES: Pupils equal and round and reactive. Extraocular motions intact. No scleral icterus. No injection or drainage. Fundi not examined. ENT: Hearing grossly normal. Nose without bleeding or purulent drainage. Throat without visible erythema, exudates, masses, or lesions. NECK: Trachea midline. Supple, nontender. No palpable thyroid enlargement or nodularity. CARDIOVASCULAR: Regular rate and rhythm without murmurs, gallops, or rubs. No JVD. Peripheral pulses symmetric. RESPIRATORY/CHEST: Symmetric, unlabored respirations. Clear to auscultation. Breath sounds equal bilaterally. No wheezes, rales, or rhonchi. GASTROINTESTINAL: Abdomen soft, non-tender, slightly distended. No hepato- splenomegaly, or palpable masses. No guarding. Bowel sounds present. GENITOURINARY: Without palpable bladder distension. MUSCULOSKELETAL: Extremities without clubbing, cyanosis, or edema. No joint tenderness or effusion noted. No calf tenderness. No mottling or clubbing. LYMPHATICS: No palpable cervical or supraclavicular adenopathy. NEUROLOGICAL: Awake and alert. Motor and sensory grossly within normal limits. Follows commands. Somewhat repetitive when telling stories though no dysarthria or overt aphasia. Moves all extremities. PSYCHIATRIC: No obvious anxiety/depression. no apparent hallucinations or other psychotic thought process. Diagnostic Tests Laboratory: Laboratory Results - last 72 hr 03/29/18 03/29/18 03/29/18 08:36 08:38 08:38 WBC 5.1 RBC 4.26 L Hgb 12.9 L Hct 38.9 L MCV 91.4 MCH 30.2 MCHC 33.1 RDW 14.4 Plt Count 178 D MPV 7.9 Neut % (Auto) 69.4 Lymph % (Auto) 16.7 Dale % (Auto) 7.3 Eos % (Auto) 6.2 H Baso % (Auto) 0.4 Neut # (Auto) 3.5 Lymph # (Auto) 0.8 L Dale # (Auto) 0.4 Eos # (Auto) 0.3 Baso # (Auto) 0.0 WBC Differential . Differential Comment Auto diff final PT INR APTT Sodium 140 Potassium 4.0 Chloride 106 Carbon Dioxide 25.6 Anion Gap 8 BUN 22 H Creatinine 1.49 H Estimated GFR 46 L POC Glucose Random Glucose 105 Hemoglobin A1c Lactic Acid 1.8 Calcium 8.4 L Total Bilirubin 0.3 AST 12 L ALT 25 Alkaline Phosphatase 82 Ammonia Total Creatine Kinase Troponin I Total Protein 6.3 L Albumin 3.0 L Triglycerides Cholesterol LDL Cholesterol, Calc HDL Cholesterol Cholesterol/HDL Ratio Vitamin B12 TSH Free T4 Urine Color Urine Clarity Urine pH Ur Specific [place] Urine Protein Urine Glucose (UA) Urine Ketones Urine Occult Blood Urine Nitrate Urine Bilirubin Urine Urobilinogen Ur Leukocyte Esterase Urine RBC Urine WBC Amorphous Sediment Urine Bacteria Urine Mucus Micro UA Comment Ur Microscopic Review Urine Culture Comments Valproic Acid 03/29/18 03/29/18 03/29/18 08:38 08:38 10:08 WBC RBC Hgb Hct MCV MCH MCHC RDW Plt Count MPV Neut % (Auto) Lymph % (Auto) Dale % (Auto) Eos % (Auto) Baso % (Auto) Neut # (Auto) Lymph # (Auto) Dale # (Auto) Eos # (Auto) Baso # (Auto) WBC Differential Differential Comment PT INR APTT Sodium Potassium Chloride Carbon Dioxide Anion Gap BUN Creatinine Estimated GFR POC Glucose Random Glucose Hemoglobin A1c Lactic Acid Calcium Total Bilirubin AST ALT Alkaline Phosphatase Ammonia 21 Total Creatine Kinase Troponin I Total Protein Albumin Triglycerides Cholesterol LDL Cholesterol, Calc HDL Cholesterol Cholesterol/HDL Ratio Vitamin B12 TSH Free T4 Urine Color Yellow Urine Clarity Hazy H Urine pH 6.0 Ur Specific [place] 1.017 Urine Protein 100 H Urine Glucose (UA) Negative Urine Ketones Negative Urine Occult Blood Moderate H Urine Nitrate Negative Urine Bilirubin Negative Urine Urobilinogen Less than 2 Ur Leukocyte Esterase Moderate H Urine RBC 63 H Urine WBC 81 H Amorphous Sediment Few H Urine Bacteria Rare H Urine Mucus Few H Micro UA Comment Culture indicated Ur Microscopic Review Not Reportable Urine Culture Comments Culture indicated Valproic Acid 30 L 03/29/18 03/29/18 03/29/18 13:08 14:38 14:38 WBC RBC Hgb Hct MCV MCH MCHC RDW Plt Count MPV Neut % (Auto) Lymph % (Auto) Dale % (Auto) Eos % (Auto) Baso % (Auto) Neut # (Auto) Lymph # (Auto) Dale # (Auto) Eos # (Auto) Baso # (Auto) WBC Differential Differential Comment PT 10.2 INR 1.0 APTT 26.6 Sodium Potassium Chloride Carbon Dioxide Anion Gap BUN Creatinine Estimated GFR POC Glucose 105 Random Glucose Hemoglobin A1c 6.1 H Lactic Acid Calcium Total Bilirubin AST ALT Alkaline Phosphatase Ammonia Total Creatine Kinase Troponin I Total Protein Albumin Triglycerides Cholesterol LDL Cholesterol, Calc HDL Cholesterol Cholesterol/HDL Ratio Vitamin B12 TSH Free T4 Urine Color Urine Clarity Urine pH Ur Specific [place] Urine Protein Urine Glucose (UA) Urine Ketones Urine Occult Blood Urine Nitrate Urine Bilirubin Urine Urobilinogen Ur Leukocyte Esterase Urine RBC Urine WBC Amorphous Sediment Urine Bacteria Urine Mucus Micro UA Comment Ur Microscopic Review Urine Culture Comments Valproic Acid 03/29/18 03/29/18 03/29/18 14:38 14:38 21:52 WBC RBC Hgb Hct MCV MCH MCHC RDW Plt Count MPV Neut % (Auto) Lymph % (Auto) Dale % (Auto) Eos % (Auto) Baso % (Auto) Neut # (Auto) Lymph # (Auto) Dale # (Auto) Eos # (Auto) Baso # (Auto) WBC Differential Differential Comment PT INR APTT Sodium Potassium Chloride Carbon Dioxide Anion Gap BUN Creatinine Estimated GFR POC Glucose 105 Random Glucose Hemoglobin A1c Lactic Acid Calcium Total Bilirubin AST ALT Alkaline Phosphatase Ammonia Total Creatine Kinase Troponin I Total Protein Albumin Triglycerides 143 Cholesterol 151 LDL Cholesterol, Calc 96 HDL Cholesterol 26.6 L Cholesterol/HDL Ratio 5.67 Vitamin B12 560 TSH 3.780 H Free T4 1.02 Urine Color Urine Clarity Urine pH Ur Specific [place] Urine Protein Urine Glucose (UA) Urine Ketones Urine Occult Blood Urine Nitrate Urine Bilirubin Urine Urobilinogen Ur Leukocyte Esterase Urine RBC Urine WBC Amorphous Sediment Urine Bacteria Urine Mucus Micro UA Comment Ur Microscopic Review Urine Culture Comments Valproic Acid 03/30/18 03/30/18 03/30/18 06:50 06:50 07:50 WBC RBC Hgb Hct MCV MCH MCHC RDW Plt Count MPV Neut % (Auto) Lymph % (Auto) Dale % (Auto) Eos % (Auto) Baso % (Auto) Neut # (Auto) Lymph # (Auto) Dale # (Auto) Eos # (Auto) Baso # (Auto) WBC Differential Differential Comment PT INR APTT Sodium 141 Potassium 4.3 Chloride 111 H Carbon Dioxide 23.3 Anion Gap 7 BUN 18 Creatinine 1.26 Estimated GFR 56 L POC Glucose 92 Random Glucose 92 Hemoglobin A1c Lactic Acid Calcium 8.0 L Total Bilirubin AST ALT Alkaline Phosphatase Ammonia Total Creatine Kinase 39 Troponin I Less than 0.02 L Total Protein Albumin Triglycerides Cholesterol LDL Cholesterol, Calc HDL Cholesterol Cholesterol/HDL Ratio Vitamin B12 TSH Free T4 Urine Color Urine Clarity Urine pH Ur Specific [place] Urine Protein Urine Glucose (UA) Urine Ketones Urine Occult Blood Urine Nitrate Urine Bilirubin Urine Urobilinogen Ur Leukocyte Esterase Urine RBC Urine WBC Amorphous Sediment Urine Bacteria Urine Mucus Micro UA Comment Ur Microscopic Review Urine Culture Comments Valproic Acid 03/30/18 03/30/18 03/30/18 11:11 12:24 17:21 WBC 4.8 RBC 3.98 L Hgb 12.0 L Hct 36.3 L MCV 91.3 MCH 30.2 MCHC 33.1 RDW 14.5 Plt Count 156 MPV 7.6 Neut % (Auto) Lymph % (Auto) Dale % (Auto) Eos % (Auto) Baso % (Auto) Neut # (Auto) Lymph # (Auto) Dale # (Auto) Eos # (Auto) Baso # (Auto) WBC Differential Differential Comment PT INR APTT Sodium Potassium Chloride Carbon Dioxide Anion Gap BUN Creatinine Estimated GFR POC Glucose 129 H 172 H Random Glucose Hemoglobin A1c Lactic Acid Calcium Total Bilirubin AST ALT Alkaline Phosphatase Ammonia Total Creatine Kinase Troponin I Total Protein Albumin Triglycerides Cholesterol LDL Cholesterol, Calc HDL Cholesterol Cholesterol/HDL Ratio Vitamin B12 TSH Free T4 Urine Color Urine Clarity Urine pH Ur Specific [place] Urine Protein Urine Glucose (UA) Urine Ketones Urine Occult Blood Urine Nitrate Urine Bilirubin Urine Urobilinogen Ur Leukocyte Esterase Urine RBC Urine WBC Amorphous Sediment Urine Bacteria Urine Mucus Micro UA Comment Ur Microscopic Review Urine Culture Comments Valproic Acid 03/30/18 03/30/18 03/31/18 18:01 21:22 07:08 WBC RBC Hgb Hct MCV MCH MCHC RDW Plt Count MPV Neut % (Auto) Lymph % (Auto) Dale % (Auto) Eos % (Auto) Baso % (Auto) Neut # (Auto) Lymph # (Auto) Dale # (Auto) Eos # (Auto) Baso # (Auto) WBC Differential Differential Comment PT 10.2 INR 1.0 APTT Sodium Potassium Chloride Carbon Dioxide Anion Gap BUN Creatinine Estimated GFR POC Glucose 111 H 98 Random Glucose Hemoglobin A1c Lactic Acid Calcium Total Bilirubin AST ALT Alkaline Phosphatase Ammonia Total Creatine Kinase Troponin I Total Protein Albumin Triglycerides Cholesterol LDL Cholesterol, Calc HDL Cholesterol Cholesterol/HDL Ratio Vitamin B12 TSH Free T4 Urine Color Urine Clarity Urine pH Ur Specific [place] Urine Protein Urine Glucose (UA) Urine Ketones Urine Occult Blood Urine Nitrate Urine Bilirubin Urine Urobilinogen Ur Leukocyte Esterase Urine RBC Urine WBC Amorphous Sediment Urine Bacteria Urine Mucus Micro UA Comment Ur Microscopic Review Urine Culture Comments Valproic Acid 03/31/18 03/31/18 03/31/18 07:08 07:08 07:32 WBC 5.0 RBC 3.75 L Hgb 11.5 L Hct 34.9 L MCV 92.9 MCH 30.6 MCHC 33.0 RDW 14.7 Plt Count 145 L MPV 7.6 Neut % (Auto) 76.9 H Lymph % (Auto) 11.1 Dale % (Auto) 7.9 Eos % (Auto) 3.8 Baso % (Auto) 0.3 Neut # (Auto) 3.8 Lymph # (Auto) 0.6 L Dale # (Auto) 0.4 Eos # (Auto) 0.2 Baso # (Auto) 0.0 WBC Differential . Differential Comment Auto diff final PT INR APTT Sodium 143 Potassium 4.2 Chloride 108 H Carbon Dioxide 27.7 Anion Gap 7 BUN 14 Creatinine 1.33 H Estimated GFR 52 L POC Glucose 105 Random Glucose 94 Hemoglobin A1c Lactic Acid Calcium 8.4 L Total Bilirubin 0.4 AST 12 L ALT 23 Alkaline Phosphatase 80 Ammonia Total Creatine Kinase Troponin I Total Protein 6.1 L Albumin 2.9 L Triglycerides Cholesterol LDL Cholesterol, Calc HDL Cholesterol Cholesterol/HDL Ratio Vitamin B12 TSH Free T4 Urine Color Urine Clarity Urine pH Ur Specific [place] Urine Protein Urine Glucose (UA) Urine Ketones Urine Occult Blood Urine Nitrate Urine Bilirubin Urine Urobilinogen Ur Leukocyte Esterase Urine RBC Urine WBC Amorphous Sediment Urine Bacteria Urine Mucus Micro UA Comment Ur Microscopic Review Urine Culture Comments Valproic Acid Result Diagrams: 03/31/18 07:08 04/01/18 06:55 Microbiology: Microbiology 03/29/18 10:08 Urine Culture - Final Clean Catch Urine 10-50,000 cfu/mL mixed angella (probable contaminants) Imaging: Impressions Head MRA 03/29/18 00:00 CONCLUSION: Negative MRA [place] ([place]) non contrast. Neck MRA 03/29/18 00:00 CONCLUSION: 1. Unremarkable MRA neck. Percent stenosis is calculated using the diameter of the stenotic region over the diameter of the normal distal internal carotid artery Head MRI 03/29/18 11:22 CONCLUSION: 1. Large bilobed stroke in the left occipital and parietal lobes. Significant perfusion abnormality. At this point no significant mass effect. Head CT 03/31/18 05:10 CONCLUSION: 1. Slowly evolving subacute left parieto-occipital infarct. 2. No new infarct demonstrated. No bleed, mass effect or other acute complication. . Patient/Family Conference Present at Family Conference: Zuri Cole, Family Conference Location: Bedside Issues Discussed: * Palliative care role, purpose, approach * Additional medical, psychosocial, and spiritual history * Patients general health, functional status, and cognitive changes in the months leading up to the current hospitalization * Patient/family understanding of the current medical problems * Patient/family understanding of prognosis * Patients goals of care as best understood from advance directives and/or conversations and/or values * Current medical treatment options and benefits/burdens of those options * Likely scenarios comparing ongoing aggressive care with a transition to comfort measures only * Questions answered to the best of my ability * Palliative care contact information provided Mr. Cole is currently able to participate in his own healthcare decisions. Despite his recent stroke he appears to have the insight to make decisions regarding his care and what the risks/burdens of the stresses may be. Discussion with his both patient and spouse agreed that they would ultimately want to focus on the patient's comfort and keeping him as functionally independent as possible for as long as possible. There was concern that they have a limited support system locally and have realistic concerns as to the patient's discharge status. The ultimate goal would be to have the patient at home and is comfortable as possible. They state that if radiation was an option they would be capable of returning daily for required treatments. We discussed the options of home health versus SNF placement versus hospice. The patient stated that his last choice would be to go to some sort of inpatient rehabilitation. He very much would like to go home. They also would like to speak with Dr. Gandhi regarding what if any options are available to them for radiation with the understanding that it may be purely palliative at this point. At this point he would like to continue with FULL CODE but will weigh all other options of treatment once speaking with radiation oncology. Assessment and Plan Pertinent Non-Medical Issues: Psychosocial: The patient was born and raised in [place] he has been to his Zuri for 43 years. 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 The couple have 1 child and no grandchildren. Spiritual: None Legal: In the absence of a documented living well, per [place] statutes, should the patient become incapacitated any time decision making would fall to his Zuri Cole Ethical issues impacting care: There are currently no known ethical issues impacting care at this time Important Contacts: Zuri Cole, /HCP [phone] Prognosis: Advancing bladder cancer and is currently not a candidate for ongoing chemotherapy or radiation treatments. He has had a somewhat rapid (3-4 weeks) downward trajectory. Given his recent stroke and history of dementia he has that continued risk for increased decline both cognitively and physically. Remains at increased risk for continued morbidity and mortality. Code Status: Full Code Plan: * LEGAL DECISION MAKER -the patient is currently able to participate in his own healthcare decisions. Should he become incapacitated at any time, per [place] statutes decision making would fall to his , Zuri Cole * GOALS - Mr. Cole is currently able to participate in his own healthcare decisions. Despite his recent stroke he appears to have the insight to make decisions regarding his care and what the risks/burdens of the stresses may be. Discussion with his both patient and spouse agreed that they would ultimately want to focus on the patient's comfort and keeping him as functionally independent as possible for as long as possible. There was concern that they have a limited support system locally and have realistic concerns as to the patient's discharge status. The ultimate goal would be to have the patient at home and is comfortable as possible. They state that if radiation was an option they would be capable of returning daily for required treatments. We discussed the options of home health versus SNF placement versus hospice. The patient stated that his last choice would be to go to some sort of inpatient rehabilitation. He very much would like to go home. They also would like to speak with Dr. Gandhi regarding what if any options are available to them for radiation with the understanding that it may be purely palliative at this point. At this point he would like to continue with FULL CODE but will weigh all other options of treatment once speaking with radiation oncology. * CODE STATUS - FULL CODE * SYMPTOMS Pain, at risk for - multifactorial including debilitated status, blood draws, invasive lines, tubes, procedures, etc. the patient currently denies pain save for recurrent headaches. He is on Depakote at home for headache management. Opioid use has been withheld and fear of masking any kind of neurological improvement or decline. Currently using Tylenol as adjunct with varied results. Should the patient's goals become strictly comfort oriented and could explore the possibility of opioid use. No further recommendations at this time. Debilitypatient currently has a relatively high level of function. He is independent of ambulation and most ADLs, despite having ongoing issues with dizziness. Appetite has been adequate and consist of regular meals. Would suggest possible working with physical therapy to ensure continued optimal functional status. Palliative care will continue to follow during hospital course as condition evolves, to assist patient/decision maker with understanding of medical conditions, weighing benefits/burdens of treatment options, for clarification of goals of treatment. Additionally will assist with any symptoms of palliative concern. Appreciation Thank you for the opportunity to participate in the care of Kishore Cole. Attestation Attestation: To help prompt me to consider important information that might be impacting today's encounter and assessment, information from prior notes written by myself or my colleagues may have been "brought forward" into today's note. My signature on this note, however, is an attestation that I personally performed the exam, history, and/or decision-making noted today, and, unless otherwise indicated, the interactions with patient, family, and staff as well as the review of records all occurred today. I also attest that the listed assessment and stated plan reflect my best clinical judgment today based on the combination of historical information, prior notes, and today's exam/ interactions. When time spent is documented, it refers only to time spent today by the signer, or if indicated, combined time spent today by collaborating physician/nurse practitioner.
--- NOTE | 2018-03-31 11:43 | P.PNFP ---
Subjective Interval history: No problems or issues. Feels less confused today and more back to baseline since admission. Is walking around without any problems, strength and appetite are good. No headache this morning; had a severe headache last night which resolved with Tylenol and cold compress. CT of head done last night showed no new abnormalities. Had 2 BM per nursing yesterday. Patient Would like to go home today. <Yesenia Fitzpatrick - 03/31/18 11:43> Results - Labs Result diagrams: 03/31/18 07:08 04/01/18 06:55 <Yomi Borden - 04/01/18 11:30> Abnormal lab results 03/31/18 03/31/18 04/01/18 Range/Units 17:26 18:21 06:55 Chloride 110 H (98-107) meq/L BUN 20 H (7-18) mg/dL Creatinine 1.38 H (0.60-1.30) mg/dL Estimated GFR 50 L (>89) mL/min POC Glucose 218 H 122 H (68-110) mg/dl Calcium 8.4 L (8.5-10.1) mg/dL [facility] 04/01/18 06:55 Sodium 142 Potassium 4.2 Chloride 110 H Carbon Dioxide 25.6 BUN 20 H Creatinine 1.38 H Calcium 8.4 L <Yomi Borden - 04/01/18 11:30> Abnormal lab results 03/29/18 03/30/18 03/30/18 Range/Units 14:38 11:11 12:24 RBC 3.98 L (4.50-5.90) mil/mm3 Hgb 12.0 L (13.0-17.0) gm/dL Hct 36.3 L (39.0-51.0) % Plt Count (150-450) th/mm3 Neut % (Auto) (16.0-70.0) % Lymph # (Auto) (1.0-4.8) th/mm3 Chloride (98-107) meq/L Creatinine (0.60-1.30) mg/dL Estimated GFR (>89) mL/min POC Glucose 129 H (68-110) mg/dl Hemoglobin A1c 6.1 H (4.3-6.0) % Calcium (8.5-10.1) mg/dL AST (15-37) U/L Total Protein (6.4-8.2) g/dL Albumin (3.4-5.0) g/dL 03/30/18 03/30/18 03/31/18 Range/Units 17:21 18:01 07:08 RBC 3.75 L (4.50-5.90) mil/mm3 Hgb 11.5 L (13.0-17.0) gm/dL Hct 34.9 L (39.0-51.0) % Plt Count 145 L (150-450) th/mm3 Neut % (Auto) 76.9 H (16.0-70.0) % Lymph # (Auto) 0.6 L (1.0-4.8) th/mm3 Chloride (98-107) meq/L Creatinine (0.60-1.30) mg/dL Estimated GFR (>89) mL/min POC Glucose 172 H 111 H (68-110) mg/dl Hemoglobin A1c (4.3-6.0) % Calcium (8.5-10.1) mg/dL AST (15-37) U/L Total Protein (6.4-8.2) g/dL Albumin (3.4-5.0) g/dL 03/31/18 Range/Units 07:08 RBC (4.50-5.90) mil/mm3 Hgb (13.0-17.0) gm/dL Hct (39.0-51.0) % Plt Count (150-450) th/mm3 Neut % (Auto) (16.0-70.0) % Lymph # (Auto) (1.0-4.8) th/mm3 Chloride 108 H (98-107) meq/L Creatinine 1.33 H (0.60-1.30) mg/dL Estimated GFR 52 L (>89) mL/min POC Glucose (68-110) mg/dl Hemoglobin A1c (4.3-6.0) % Calcium 8.4 L (8.5-10.1) mg/dL AST 12 L (15-37) U/L Total Protein 6.1 L (6.4-8.2) g/dL Albumin 2.9 L (3.4-5.0) g/dL Short CBC 03/30/18 03/31/18 Range/Units 11:11 07:08 WBC 4.8 5.0 (4.0-11.0) th/mm3 Hgb 12.0 L 11.5 L (13.0-17.0) gm/dL Hct 36.3 L 34.9 L (39.0-51.0) % Plt Count 156 145 L (150-450) th/mm3 BMP 03/31/18 07:08 Sodium 143 Potassium 4.2 Chloride 108 H Carbon Dioxide 27.7 BUN 14 Creatinine 1.33 H Calcium 8.4 L Liver Function 03/31/18 Range/Units 07:08 Total Bilirubin 0.4 (0.2-1.0) mg/dL AST 12 L (15-37) U/L ALT 23 (12-78) U/L Alkaline Phosphatase 80 (45-117) U/L Albumin 2.9 L (3.4-5.0) g/dL <Yesenia Fitzpatrick N - 03/31/18 11:43> - Imaging Impressions Head CT 03/31/18 05:10 CONCLUSION: 1. Slowly evolving subacute left parieto-occipital infarct. 2. No new infarct demonstrated. No bleed, mass effect or other acute complication. . <Yesenia Fitzpatrick N - 03/31/18 11:43> Physical Exam Vital signs: Vital Signs 03/31/18 12:28 03/31/18 13:33 03/31/18 13:52 Temperature 98.0 F Pulse Rate 95 H 72 Respiratory Rate 18 Blood Pressure 150/90 H Pulse Oximetry 98 97 03/31/18 16:00 03/31/18 16:30 03/31/18 20:00 Temperature 98.2 F 98.1 F Pulse Rate 68 64 71 Respiratory Rate 18 16 Blood Pressure 140/86 141/84 H Pulse Oximetry 96 97 04/01/18 00:00 04/01/18 04:00 04/01/18 08:00 Temperature 97.9 F 98.2 F 98 F Pulse Rate 63 66 57 L Respiratory Rate 18 20 18 Blood Pressure 143/95 H 160/88 H 156/78 H Pulse Oximetry 96 97 96 Intake & Output 03/31/18 04/01/18 04/01/18 18:59 06:59 18:59 Output Total 300 / 300 Balance -300 / -300 Weight 76.1 kg Output: Urine Amount (Stoma) 300 / 300 con 300 / 300 Other: # Voids 2 Date of Last Bowel Movement 03/31/18 03/31/18 # Bowel Movements 1 <Yomi Borden - 04/01/18 11:30> Vital Signs 03/30/18 12:00 03/30/18 16:00 03/30/18 20:00 Temperature 97.6 F 98.3 F 97.6 F Pulse Rate 82 78 69 Respiratory Rate 20 20 Blood Pressure 163/93 H 143/87 H 157/93 H Pulse Oximetry 95 97 96 03/31/18 01:15 03/31/18 01:31 03/31/18 06:07 Temperature Pulse Rate Respiratory Rate 20 Blood Pressure 175/93 H 159/90 H Pulse Oximetry 03/31/18 08:00 03/31/18 09:06 Temperature 97.9 F Pulse Rate 57 L 97 H Respiratory Rate 18 Blood Pressure 160/91 H Pulse Oximetry 97 97 Intake & Output 03/30/18 03/31/18 03/31/18 18:59 06:59 18:59 Intake Total 1250 / 1250 Output Total 750 / 750 1400 / 1400 Balance -750 / -750 -150 / -150 Weight 73.9 kg Intake: IV 1000 / 1000 NS Inj 1,000 ML @ 70 mls/hr IV. 1000 / 1000 CONT .[id number] [facility] Rx#:[id number] Oral 250 / 250 Output: Urine 750 / 750 1400 / 1400 Other: # Voids 1 4 1 Date of Last Bowel Movement 03/30/18 03/31/18 # Bowel Movements 1 2 <Yesenia Fitzpatrick N - 03/31/18 11:43> Narrative: GENERAL: Thin, pleasant white man in no acute distress, comfortable and alert in bed. SKIN: Warm and dry. HEAD: Normocephalic. EYES: No scleral icterus. No injection or drainage. NECK: Supple, trachea midline. No JVD or lymphadenopathy. CARDIOVASCULAR: Regular rate and rhythm without murmurs, gallops, or rubs. RESPIRATORY: Breath sounds equal bilaterally. No accessory muscle use. GASTROINTESTINAL: Abdomen soft, non-tender. MUSCULOSKELETAL: No cyanosis, or edema. <Yesenia Fitzpatrick N - 03/31/18 11:43> Assessment and Plan - Assessment (1) CVA (cerebral vascular accident) Code(s): I63.9 - Cerebral infarction, unspecified Status: Acute Plan: CT brain performed in ED showed an "area of abnormal low density, new from the prior study, in the left parietal and occipital lobes measuring approximately 4.4 x 2.8 cm. The appearance favors cytotoxic edema from a subacute ischemic event." MRI/MRA brain showed "large bilobed stroke in the left occipital and parietal lobes with perfusion abnormality, but no mass effect. No evidence for aneurysm, vessel truncation, stenosis or vascular malformation." Echocardiogram showed EF of 55-60 % with mildly dilated left atrium. Rest of neuro work-up w/o abnormalities Tylenol 650 mg PO q4hr PRN for pain or headache ASA 325 mg PO qDay Atorvastatin 40 mg PO qDay Continue home divalproex 500 mg PO qDay Neurology consulted: Recommend anticoagulation. OK to dc today Cardiology consulted, Eliquis started this morning for anticoagulation PT/OT rec home health (2) Cephalgia Code(s): R51 - Headache Status: Acute Plan: tylenol and cold compresses PRN CT of head last night w/o abnormalities (3) Confusion Code(s): R41.0 - Disorientation, unspecified Status: Acute Plan: Improved/resolved. (4) Bladder cancer Code(s): C67.9 - Malignant neoplasm of bladder, unspecified Status: Chronic Plan: S/p tumor removal 3 weeks ago; rec to start radiation therapy in future by outpatient oncologist Nephrostomy stent to be managed outpatient Rad onc and palliative were consulted for recommendations for continued treatment (5) UTI (urinary tract infection) Code(s): N39.0 - Urinary tract infection, site not specified Status: Acute Plan: UA performed in the ED showed moderate occult blood, moderate leukocyte esterase , 63 RBC, 81 WBC and rare bacteria. Given 1g of rocephin in the ED. Patient also has a history of bladder cancer with internal and external ureteral stent placement. Urine culture growing mixed angella Ciprofloxacin 500 mg PO q12hr (6) Dementia Code(s): F03.90 - Unspecified dementia without behavioral disturbance Status: Chronic Plan: Will continue home donepezil. (7) Rectal pain Code(s): K62.89 - Other specified diseases of anus and rectum Status: Chronic Plan: Following w/outpatient GI doctor and oncologist for work-up Tylenol for pain. (8) Constipation Code(s): K59.00 - Constipation, unspecified Status: Chronic Plan: Resolved. (9) Nutrition, metabolism, and development symptoms Code(s): R63.8 - Other symptoms and signs concerning food and fluid intake Status: Acute Plan: Fluids: DC fluids Electrolytes: No notable electrolyte abnormalities at this time. Will continue to monitor and replete as needed. Diet: Regular diet (10) DVT prophylaxis Status: Acute Plan: Lovenox 40mg <Yesenia Fitzpatrick - 03/31/18 11:27> - Assessment and Plan Discharge Planning: Dc today or tomorrow after seen by rad onc and palliative <Yesenia Fitzpatrick - 03/31/18 11:43> - Attending Attestation See the residents documentation for details. I saw and evaluated the patient regarding the lira portions of this evaluation and agree with the residents findings and plans as written. Parts of this note were created using CURRENT voice recognition software program. While efforts were made to correct any mistakes made by this software, some mistakes, errors, and omissions may remain in the final note that were not caught when the note was originally created. Plan of care was discussed and agreed upon with the patient as specifically documented in the above note. An opportunity to ask questions with explanation was provided. Patient voiced understanding on all information reviewed and discussed. <Yomi Borden - 04/01/18 11:30> <Yesenia Fitzpatrick - Last Filed: 03/31/18 11:27> (1) CVA (cerebral vascular accident) Qualifiers: CVA mechanism: unspecified Qualified Code(s): I63.9 - Cerebral infarction, unspecified (2) Cephalgia Qualifiers: Headache type: unspecified Headache chronicity pattern: episodic headache Intractability: intractable Qualified Code(s): R51 - Headache (5) UTI (urinary tract infection) Qualifiers: Indwelling urinary catheter type: indwelling urethral catheter <Yesenia Fitzpatrick - Last Filed: 03/31/18 11:27> (1) CVA (cerebral vascular accident) Qualifiers: CVA mechanism: unspecified Qualified Code(s): I63.9 - Cerebral infarction, unspecified (2) Cephalgia Qualifiers: Headache type: unspecified Headache chronicity pattern: episodic headache Intractability: intractable Qualified Code(s): R51 - Headache (5) UTI (urinary tract infection) Qualifiers: Indwelling urinary catheter type: indwelling urethral catheter
[2018-03-31] MEDS: Lisinopril 5 MG Tablet PO SCH (12:22)
--- NOTE | 2018-03-31 12:52 | P.PNCA ---
Subjective Interval history: Patient denies any CP, pressure, palpitations, edema or SOB. Patient does complain of mild dizziness when getting up and a OLVERA. Medications and Allergies Allergies Allergy/AdvReac Type Severity Reaction Status Date / Time No Known Allergies Allergy Verified 03/29/18 08:13 Home Medications Medication Instructions Recorded Confirmed Type alprazolam [Xanax] 0.25 mg PO DAILY 03/17/18 03/29/18 History divalproex 500 mg PO DAILY 03/17/18 03/29/18 History donepezil 10 mg PO DAILY 03/17/18 03/29/18 History acetaminophen 500 mg PO Q6H PRN 03/29/18 03/29/18 History hydrocodone-acetaminophen 0.5 tab PO Q3H PRN 03/29/18 03/29/18 History Active Medications: Active Medications Acetaminophen (Tylenol) 650 mg PO Q4H PRN PRN Reason: HEADACHE Last Admin: 03/31/18 12:22 Dose: 650 mg Al Hydroxide/Mg Hydroxide (Milk Of Magnesia Liq) 30 ml PO Q12H PRN PRN Reason: Mild Constipation Apixaban (Eliquis) 5 mg PO BID [facility] Last Admin: 03/31/18 08:26 Dose: 5 mg Atorvastatin Calcium (Lipitor) 40 mg PO HS [facility] Last Admin: 03/30/18 21:10 Dose: 40 mg Bisacodyl (Dulcolax Supp) 10 mg RECTAL DAILY PRN PRN Reason: SEVERE CONSITIPATION Ciprofloxacin HCl (Cipro) 500 mg PO Q12HR [facility] Last Admin: 03/30/18 08:15 Dose: 500 mg Divalproex Sodium (Depakote Er) 500 mg PO DAILY [facility] Last Admin: 03/31/18 08:26 Dose: 500 mg Donepezil HCl (Aricept) 10 mg PO DAILY@2100 [facility] Last Admin: 03/30/18 21:10 Dose: 10 mg Enalaprilat (Vasotec Inj) 1.25 mg IV.PUSH Q4H PRN PRN Reason: SBP > 180 Last Admin: 03/30/18 08:24 Dose: 1.25 mg Lactulose (Lactulose Liq) 30 ml PO DAILY PRN PRN Reason: SEVERE CONSITIPATION Last Admin: 03/30/18 10:25 Dose: 30 ml Lisinopril (Prinivil) 5 mg PO DAILY [facility] Last Admin: 03/31/18 12:22 Dose: 5 mg Ondansetron HCl (Zofran Inj) 4 mg IV.PUSH Q8H PRN PRN Reason: NAUSEA Last Admin: 03/30/18 18:23 Dose: 4 mg Polyethylene Glycol (Miralax) 17 gm PO ONCE PRN PRN Reason: CONSTIPATION Last Admin: 03/29/18 21:57 Dose: 17 gm Senna/Docusate Sodium (Lissette-Colace) 1 tab PO BID [facility] Last Admin: 03/31/18 08:26 Dose: 1 tab Sennosides (Senokot) 17.2 mg PO Q12H PRN PRN Reason: Moderate Constipation Sodium Chloride (Ns Flush) 2 ml IV.FLUSH BID [facility] Last Admin: 03/31/18 08:30 Dose: Not Given Sodium Chloride (Ns Flush) 2 ml IV.FLUSH PRN PRN PRN Reason: FLUSH AFTER USING IV ACCESS Physical Exam Vital signs: Vital Signs 03/30/18 16:00 03/30/18 20:00 03/31/18 01:15 Temperature 98.3 F 97.6 F Pulse Rate 78 69 Respiratory Rate 20 Blood Pressure 143/87 H 157/93 H 175/93 H Pulse Oximetry 97 96 03/31/18 01:31 03/31/18 06:07 03/31/18 08:00 Temperature Pulse Rate 57 L Respiratory Rate 20 Blood Pressure 159/90 H Pulse Oximetry 97 03/31/18 09:06 03/31/18 12:28 Temperature 97.9 F Pulse Rate 97 H Respiratory Rate 18 Blood Pressure 160/91 H Pulse Oximetry 97 98 Intake & Output 03/30/18 03/31/18 03/31/18 18:59 06:59 18:59 Intake Total 1250 / 1250 Output Total 750 / 750 1400 / 1400 Balance -750 / -750 -150 / -150 Weight 73.9 kg Intake: IV 1000 / 1000 NS Inj 1,000 ML @ 70 mls/hr IV. 1000 / 1000 CONT .[id number] [facility] Rx#:[id number] Oral 250 / 250 Output: Urine 750 / 750 1400 / 1400 Other: # Voids 1 4 1 Date of Last Bowel Movement 03/30/18 03/31/18 03/31/18 # Bowel Movements 1 2 1 - Constitutional no acute distress - Routine HEENT Exam Head: Present: normocephalic Eye: Present: PERRL ENT: Present: mucous membranes moist - Routine Neck Exam Present: full ROM - Routine Respiratory Exam Present: CTA bilaterally - Routine Cardiovascular Exam Present: S1, S2. Absent: murmur, gallop, rubs - Routine Abdominal Exam Present: normoactive bowel sounds - Routine Extremities Exam Present: full ROM, pulses intact, normal capillary refill. Absent: cyanosis, clubbing, edema - Routine Skin Exam Present: intact - Routine Neurological Exam Present: oriented X3 - Detailed Neurological Exam: Coma Scale Eye Opening: Spontaneous Verbal Response: Oriented Motor Response: Obey commands Ashlee Coma Scale Total: 15 - Routine Psychiatric Exam Present: normal affect Results 03/31/18 07:08 03/31/18 07:08 Cardiac Enzymes 03/30/18 03/31/18 Range/Units 06:50 07:08 AST 12 L (15-37) U/L Troponin I Less than 0.02 L (0.02-0.05) ng/mL Coagulation 03/29/18 03/31/18 Range/Units 14:38 07:08 PT 10.2 10.2 (9.8-11.6) sec APTT 26.6 (24.3-30.1) sec Lipids 03/29/18 Range/Units 14:38 Triglycerides 143 (42-150) mg/dL Cholesterol 151 (120-200) mg/dL HDL Cholesterol 26.6 L (40.0-60.0) mg/dL Cholesterol/HDL Ratio 5.67 Ratio CBC 03/30/18 03/31/18 Range/Units 11:11 07:08 WBC 4.8 5.0 (4.0-11.0) th/mm3 RBC 3.98 L 3.75 L (4.50-5.90) mil/mm3 Hgb 12.0 L 11.5 L (13.0-17.0) gm/dL Hct 36.3 L 34.9 L (39.0-51.0) % Plt Count 156 145 L (150-450) th/mm3 Neut # (Auto) 3.8 (1.8-7.7) th/mm3 Lymph # (Auto) 0.6 L (1.0-4.8) th/mm3 [place] # (Auto) 0.4 (0.0-0.9) th/mm3 Eos # (Auto) 0.2 (0.0-0.4) th/mm3 Baso # (Auto) 0.0 (0.0-0.2) th/mm3 Comprehensive Metabolic Panel 03/30/18 03/31/18 Range/Units 06:50 07:08 Sodium 141 143 (136-145) meq/L Potassium 4.3 4.2 (3.5-5.1) meq/L Chloride 111 H 108 H (98-107) meq/L Carbon Dioxide 23.3 27.7 (21.0-32.0) meq/L BUN 18 14 (7-18) mg/dL Creatinine 1.26 1.33 H (0.60-1.30) mg/dL Calcium 8.0 L 8.4 L (8.5-10.1) mg/dL AST 12 L (15-37) U/L ALT 23 (12-78) U/L Alkaline Phosphatase 80 (45-117) U/L Total Protein 6.1 L (6.4-8.2) g/dL Albumin 2.9 L (3.4-5.0) g/dL Intake and Output 03/30/18 03/31/18 03/31/18 22:59 06:59 14:59 Intake Total 1000 / 1000 250 / 250 Output Total 1400 / 1400 Balance 1000 / 1000 -1150 / -1150 Intake: IV 1000 / 1000 NS Inj 1,000 ML @ 70 mls/hr IV. 1000 / 1000 CONT .[id number] [facility] Rx#:[id number] Oral 250 / 250 Output: Urine 1400 / 1400 Other: # Voids 1 4 1 Date of Last Bowel Movement 03/30/18 03/31/18 03/31/18 # Bowel Movements 2 1 Weight 73.9 kg - Imaging and Cardiology Imaging: Impressions Carotid Doppler Study 03/29/18 00:00 CONCLUSION: 1. Right Internal Carotid Artery: No significant stenosis or atherosclerotic plaque is visualized. 2. Left Internal Carotid Artery: No significant stenosis or atherosclerotic plaque is visualized. Head MRA 03/29/18 00:00 CONCLUSION: Negative MRA [place] ([place]) non contrast. Neck MRA 03/29/18 00:00 CONCLUSION: 1. Unremarkable MRA neck. Percent stenosis is calculated using the diameter of the stenotic region over the diameter of the normal distal internal carotid artery Head MRI 03/29/18 11:22 CONCLUSION: 1. Large bilobed stroke in the left occipital and parietal lobes. Significant perfusion abnormality. At this point no significant mass effect. Head CT 03/31/18 05:10 CONCLUSION: 1. Slowly evolving subacute left parieto-occipital infarct. 2. No new infarct demonstrated. No bleed, mass effect or other acute complication. . Assessment and Plan - Assessment (1) CVA (cerebral vascular accident) Code(s): I63.9 - Cerebral infarction, unspecified Status: Acute (2) Obstructive uropathy Code(s): N13.9 - Obstructive and reflux uropathy, unspecified Status: Acute (3) Chronic kidney disease Code(s): N18.9 - Chronic kidney disease, unspecified Status: Acute (4) Cephalgia Code(s): R51 - Headache Status: Acute (5) Confusion Code(s): R41.0 - Disorientation, unspecified Status: Acute (6) Bladder cancer Code(s): C67.9 - Malignant neoplasm of bladder, unspecified Status: Chronic (7) UTI (urinary tract infection) Code(s): N39.0 - Urinary tract infection, site not specified Status: Acute (8) Dementia Code(s): F03.90 - Unspecified dementia without behavioral disturbance Status: Chronic - Plan Patient in SR on monitor, we will continue to monitor the patient from cardiac standpoint. Palliative care evaluation in progress. The patient was started on Eliquis for anticoagulation. Discussed anticoagulation with the patient. No need for loop monitor since the patient will be fully anticoagulated. D/w Dr. Madden. The patient was seen and evaluated by Dr. Juan who participated in care, management and decision-making. - Attending Attestation Patient seen and examined. I reviewed and agree with the evaluation and plan as presented. Anticoagulation with Eliquis started, no need for loop monitor. D/w Dr. Madden. (1) CVA (cerebral vascular accident) Qualifiers: CVA mechanism: unspecified Qualified Code(s): I63.9 - Cerebral infarction, unspecified (3) Chronic kidney disease Qualifiers: Chronic kidney disease stage: unspecified stage Qualified Code(s): N18.9 - Chronic kidney disease, unspecified (4) Cephalgia Qualifiers: Headache type: unspecified Headache chronicity pattern: episodic headache Intractability: intractable Qualified Code(s): R51 - Headache (7) UTI (urinary tract infection) Qualifiers: Indwelling urinary catheter type: indwelling urethral catheter
[2018-03-31] MEDS ORDERED: Ketorolac Inj 30 MG/ML (IVP) Vial IV.PUSH PRN (17:26)
--- NOTE | 2018-03-31 20:04 | P.CON ---
History of Present Illness Service: radiation oncology Consult date: 03/31/18 Primary Care Provider: uMkund Moody Chief Complaint: headache, confusion History of Present Illness: Recent diagnosis bladder cancer. With obstruction. He has a history of lymphoma. [facility] - History History Provided By: Patient, Family Member - Medical History Medical History: Medical History (Last Reviewed 03/30/18 @ 09:09 by Yasir Abbott) Bladder cancer Dementia Diverticulosis Hematuria Hepatitis C Hypercholesteremia Lymphoma Thoracic aortic aneurysm - Surgical History Surgical History: Surgical History (Last Updated 03/31/18 @ 15:15 by MARU Cespedes) History of tonsillectomy S/P ureteral stent placement FHx: cholecystectomy - Family History Family History: Family History (Last Updated 03/31/18 @ 15:57 by MARU Cespedes) Brother Myocardial infarct Other Parents - Tobacco History Second Hand Smoke Exposure: No Tobacco Use In Past 30 Days: No Smoking Status: Former smoker Number of Pack Years (if former smoker): 30 - Alcohol History How Often Do You Have a Drink Containing Alcohol: 2 to 4 times a month - Substance Use History Substance History: No History of Abuse - Travel History History of Recent Travel: No Recent Travel in the [place] Within the Last 8 Weeks: No Recent Travel Out of the Country Within the Last 8 Weeks: No - Immunization History Tetanus Immunization: Unsure Hx Influenza Vaccine This Season: No Medications and Allergies Active Medications: Active Medications Acetaminophen (Tylenol) 650 mg PO Q4H PRN PRN Reason: Headache, pain scale 1-7 Last Admin: 03/31/18 19:09 Dose: 650 mg Al Hydroxide/Mg Hydroxide (Milk Of Mani Liq) 30 ml PO Q12H PRN PRN Reason: Mild Constipation Apixaban (Eliquis) 5 mg PO BID [facility] Last Admin: 03/31/18 08:26 Dose: 5 mg Atorvastatin Calcium (Lipitor) 40 mg PO HS [facility] Last Admin: 03/30/18 21:10 Dose: 40 mg Bisacodyl (Dulcolax Supp) 10 mg RECTAL DAILY PRN PRN Reason: SEVERE CONSITIPATION Ciprofloxacin HCl (Cipro) 500 mg PO Q12HR [facility] Last Admin: 03/30/18 08:15 Dose: 500 mg Divalproex Sodium (Depakote Er) 500 mg PO DAILY [facility] Last Admin: 03/31/18 08:26 Dose: 500 mg Donepezil HCl (Aricept) 10 mg PO DAILY@2100 [facility] Last Admin: 03/30/18 21:10 Dose: 10 mg Enalaprilat (Vasotec Inj) 1.25 mg IV.PUSH Q4H PRN PRN Reason: SBP > 180 Last Admin: 03/30/18 08:24 Dose: 1.25 mg Ketorolac Tromethamine (Toradol Inj) 15 mg IV.PUSH Q6H PRN PRN Reason: Headache, pain scale 8-10 Stop: 04/05/18 17:25 Lactulose (Lactulose Liq) 30 ml PO DAILY PRN PRN Reason: SEVERE CONSITIPATION Last Admin: 03/30/18 10:25 Dose: 30 ml Lisinopril (Prinivil) 5 mg PO DAILY [facility] Last Admin: 03/31/18 12:22 Dose: 5 mg Ondansetron HCl (Zofran Inj) 4 mg IV.PUSH Q8H PRN PRN Reason: NAUSEA Last Admin: 03/30/18 18:23 Dose: 4 mg Polyethylene Glycol (Miralax) 17 gm PO ONCE PRN PRN Reason: CONSTIPATION Last Admin: 03/29/18 21:57 Dose: 17 gm Senna/Docusate Sodium (Lissette-Colace) 1 tab PO BID [facility] Last Admin: 03/31/18 08:26 Dose: 1 tab Sennosides (Senokot) 17.2 mg PO Q12H PRN PRN Reason: Moderate Constipation Sodium Chloride (Ns Flush) 2 ml IV.FLUSH BID [facility] Last Admin: 03/31/18 08:30 Dose: Not Given Sodium Chloride (Ns Flush) 2 ml IV.FLUSH PRN PRN PRN Reason: FLUSH AFTER USING IV ACCESS Allergies Allergy/AdvReac Type Severity Reaction Status Date / Time No Known Allergies Allergy Verified 03/29/18 08:13 Home Medications Medication Instructions Recorded Confirmed Type alprazolam [Xanax] 0.25 mg PO DAILY 03/17/18 03/29/18 History divalproex 500 mg PO DAILY 03/17/18 03/29/18 History donepezil 10 mg PO DAILY 03/17/18 03/29/18 History acetaminophen 500 mg PO Q6H PRN 03/29/18 03/29/18 History hydrocodone-acetaminophen 0.5 tab PO Q3H PRN 03/29/18 03/29/18 History Physical Exam Vital signs: Vital Signs 03/31/18 01:15 03/31/18 01:31 03/31/18 06:07 Temperature Pulse Rate Respiratory Rate 20 Blood Pressure 175/93 H 159/90 H Pulse Oximetry 03/31/18 08:00 03/31/18 09:06 03/31/18 12:28 Temperature 97.9 F Pulse Rate 57 L 97 H Respiratory Rate 18 Blood Pressure 160/91 H Pulse Oximetry 97 97 98 03/31/18 13:33 03/31/18 13:52 03/31/18 16:00 Temperature 98.0 F 98.2 F Pulse Rate 95 H 72 68 Respiratory Rate 18 18 Blood Pressure 150/90 H 140/86 Pulse Oximetry 97 96 03/31/18 16:30 Temperature Pulse Rate 64 Respiratory Rate Blood Pressure Pulse Oximetry Intake & Output 03/31/18 03/31/18 04/01/18 06:59 18:59 06:59 Intake Total 1250 / 1250 Output Total 1400 / 1400 Balance -150 / -150 Weight 73.9 kg Intake: IV 1000 / 1000 NS Inj 1,000 ML @ 70 mls/hr IV. 1000 / 1000 CONT .[id number] [facility] Rx#:[id number] Oral 250 / 250 Output: Urine 1400 / 1400 Other: # Voids 4 2 Date of Last Bowel Movement 03/31/18 03/31/18 # Bowel Movements 2 1 Assessment and Plan - Assessment (1) Bladder cancer Code(s): C67.9 - Malignant neoplasm of bladder, unspecified Status: Chronic - Plan We discussed definitive xrt and palliative xrt. Discussed with Dr. Cahno pope. Outpatient inpatient imaging reviewed. Agreeable to xrt. Discussed acute and terminal operations supervisor toxicities. We will schedule CT simulation.
[2018-03-31] MEDS: Ciprofloxacin 500 MG Tablet PO SCH (22:03)
--- NOTE | 2018-03-31 23:17 | MB ---
cc: Nathaniel Madden MD DATE: 03/31/2018 REASON FOR CONSULTATION: The patient with dementia, strokes, invasive bladder cancer, recent renal failure, and history of lymphoma. PATIENT PROFILE: The patient is . This is his third marriage. He has 1 daughter. 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 There has been minimal tobacco use in the past and there has been no excessive alcohol use. HISTORY OF PRESENT ILLNESS: I originally saw the patient in 07/2009 when he was found to have obstruction of the left ureter from a mass. 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 He received 6 cycles of Rituxan and bendamustine and entered a remission. He has had no reoccurrence. Approximately 9 or 10 weeks ago, he was found to have an elevated creatinine. He was referred to his urologist and found to have a tender and enlarged prostate. He was treated with ciprofloxacin for about 6 weeks without improvement and developed worsening renal failure. He was eventually found to have a papillary urothelial high-grade carcinoma, minimum Stage II. The tumor went from the prostatic urethra to the left distal ureter. He had to have a diverting nephrostomy tube placed. He underwent a PET scan and no evidence of metastatic disease. He did not want a cystectomy and in addition, he was felt to be too frail to undergo a cystectomy. He has had problems with progressive dementia. He has also had significant pain in the rectal area with continued tenderness involving the left prostate. He was hospitalized at [place] due to headaches, falls and unstable gait. He has had these problems before, but they accelerated. He underwent neurologic consultation as well as multiple radiographic studies of the brain and carotids. The head MRI showed large bilobed strokes in the left occipital and parietal lobes. He did not have any evidence of atrial fibrillation. It was felt that he would require anticoagulation and the etiology of this stroke was obscure. Consideration was given to placing a loop to determine if he had intermittent atrial fibrillation. It was felt that he would need long-term anticoagulation. He remains increasingly frail. Gait is not stable. Memory is poor. His has had the responsibility of caring for him, which at times is overwhelming. PAST SURGICAL HISTORY: 1. Nasal septal repair. 2. Right meniscus repair. 3. Cholecystectomy. 4. Cystoscopy and biopsy revealing high-grade transitional cell cancer of the bladder with involvement of muscle on 03/04/2018. PAST MEDICAL HISTORY: 1. Follicular lymphoma dating back to 2010, treated with bendamustine and Rituxan, currently in remission. 2. 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 3. Progressive dementia. 4. Elevated cholesterol. 5. Meniere's disease. ALLERGIES: NONE. MEDICATIONS PRIOR TO ADMISSION: 1. Xanax. 2. Aricept. 3. Glucosamine. 4. Divalproex. FAMILY HISTORY: Noncontributory. REVIEW OF SYSTEMS: He has had headaches. He has poor vision. Hearing is slightly diminished. No chest pain or palpitations. No shortness of breath. No abdominal or pelvic pain. He does have rectal pain. No dysuria. No bone pain. Memory extremely poor and has occasional confusion. PHYSICAL EXAMINATION: GENERAL: Reveals a gentleman who appears older than his age of 77. He is disheveled. He has trouble following conversation. VITAL SIGNS: Blood pressure 140/80, respiratory rate 18, pulse 70, afebrile. O2 saturation 96%. HEENT: Head is normocephalic. Sclerae and conjunctivae are normal. Oropharynx unremarkable. LYMPHATICS: No cervical, supraclavicular, axillary or inguinal adenopathy. HEART: Regular rhythm. LUNGS: Clear. ABDOMEN: Soft. No hepatosplenomegaly. EXTREMITIES: Trace edema. MUSCULOSKELETAL: No bone pain. NEUROLOGIC: Notable for mild confusion. ASSESSMENT: 1. The patient is a 77-year-old male who has an extensive T2 transitional cell cancer of the bladder, which is high grade. He has no overt metastatic disease. He has had a painful prostate accounting for what I believe is rectal pain. He may have involvement of the prostate from the bladder cancer, but this is unknown. He is not a candidate for cystectomy. The major issues are: 1. What to do with the bladder cancer. 2. What to do with the fact that he has now had 2 strokes. The neurologist, Dr. Leavitt, feels that he needs indefinite anticoagulation. I have spoken with his leak gang supervisor, Dr. Juan, and we feel that it would be reasonable to treat him with apixaban. This would work both for atrial fibrillation and for malignancy-related thromboembolic disease. It will be very difficult to monitor this patient's Coumadin except by having people come to the home. Apixaban would be an excellent choice and as long as the creatinine is greater than or equal to 50 mL then the dose will be 5 mg twice a day. Problem #2 is how to deal with the transitional cell cancer of the bladder. Options at this point would include: 1. Cystectomy, which he does not want and would probably not tolerate. 2. Radiation therapy, either palliative or curative course. 3. Radiation with chemotherapy. He is not a candidate for chemotherapy. I have spoken with Dr. Gandhi. Dr. Gandhi will speak with the family. I have also requested that palliative care be involved as at some point in the near future, the patient may end up on the hospice program. I have discontinued his Lovenox, aspirin, and I have started Eliquis 5 mg p.o. b.i.d. Over the past several months, he has had a rapid deterioration and it would not surprise me if he is unable to completed a course of radiation because of his comorbidities and in particular, his rapid cognitive degeneration. The situation was discussed in detail with his , the leak gang supervisor, and Dr. Leavitt. MD JAROCHO Ramirez/jarocho , 10:26 PM , 10:41 PM
[2018-04-01 07:26] LABS: INR 1.1 Ratio; Prothrombin Time 10.9 sec (9.8-11.6)
[2018-04-01 07:39] LABS: Calcium 8.4 mg/dL (8.5-10.1); Carbon Dioxide 25.6 meq/L (21.0-32.0); Potassium 4.2 meq/L (3.5-5.1)
--- NOTE | 2018-04-01 08:12 | P.PNNEU ---
Subjective Active Medications: Active Medications Acetaminophen (Tylenol) 650 mg PO Q4H PRN PRN Reason: Headache, pain scale 1-7 Last Admin: 03/31/18 19:09 Dose: 650 mg Al Hydroxide/Mg Hydroxide (Milk Of Magnesia Liq) 30 ml PO Q12H PRN PRN Reason: Mild Constipation Apixaban (Eliquis) 5 mg PO BID [facility] Last Admin: 03/31/18 22:03 Dose: 5 mg Atorvastatin Calcium (Lipitor) 40 mg PO HS [facility] Last Admin: 03/31/18 22:03 Dose: 40 mg Bisacodyl (Dulcolax Supp) 10 mg RECTAL DAILY PRN PRN Reason: SEVERE CONSITIPATION Ciprofloxacin HCl (Cipro) 500 mg PO Q12HR [facility] Last Admin: 03/31/18 22:03 Dose: 500 mg Divalproex Sodium (Depakote Er) 500 mg PO DAILY [facility] Last Admin: 03/31/18 08:26 Dose: 500 mg Donepezil HCl (Aricept) 10 mg PO DAILY@2100 [facility] Last Admin: 03/31/18 22:03 Dose: 10 mg Enalaprilat (Vasotec Inj) 1.25 mg IV.PUSH Q4H PRN PRN Reason: SBP > 180 Last Admin: 03/30/18 08:24 Dose: 1.25 mg Ketorolac Tromethamine (Toradol Inj) 15 mg IV.PUSH Q6H PRN PRN Reason: Headache, pain scale 8-10 Stop: 04/05/18 17:25 Lactulose (Lactulose Liq) 30 ml PO DAILY PRN PRN Reason: SEVERE CONSITIPATION Last Admin: 03/30/18 10:25 Dose: 30 ml Lisinopril (Prinivil) 5 mg PO DAILY [facility] Last Admin: 03/31/18 12:22 Dose: 5 mg Ondansetron HCl (Zofran Inj) 4 mg IV.PUSH Q8H PRN PRN Reason: NAUSEA Last Admin: 03/30/18 18:23 Dose: 4 mg Polyethylene Glycol (Miralax) 17 gm PO ONCE PRN PRN Reason: CONSTIPATION Last Admin: 03/29/18 21:57 Dose: 17 gm Senna/Docusate Sodium (Lissette-Colace) 1 tab PO BID [facility] Last Admin: 03/31/18 22:02 Dose: 1 tab Sennosides (Senokot) 17.2 mg PO Q12H PRN PRN Reason: Moderate Constipation Sodium Chloride (Ns Flush) 2 ml IV.FLUSH BID [facility] Last Admin: 03/31/18 22:06 Dose: 2 ml Sodium Chloride (Ns Flush) 2 ml IV.FLUSH PRN PRN PRN Reason: FLUSH AFTER USING IV ACCESS Allergies/Adverse Reactions: Allergies Allergy/AdvReac Type Severity Reaction Status Date / Time No Known Allergies Allergy Verified 03/29/18 08:13 Physical Exam Vital signs: Vital Signs 03/31/18 09:06 03/31/18 12:28 03/31/18 13:33 Temperature 97.9 F 98.0 F Pulse Rate 97 H 95 H Respiratory Rate 18 18 Blood Pressure 160/91 H 150/90 H Pulse Oximetry 97 98 97 03/31/18 13:52 03/31/18 16:00 03/31/18 16:30 Temperature 98.2 F Pulse Rate 72 68 64 Respiratory Rate 18 Blood Pressure 140/86 Pulse Oximetry 96 03/31/18 20:00 04/01/18 00:00 04/01/18 04:00 Temperature 98.1 F 97.9 F 98.2 F Pulse Rate 71 63 66 Respiratory Rate 16 18 20 Blood Pressure 141/84 H 143/95 H 160/88 H Pulse Oximetry 97 96 97 Intake & Output 03/31/18 04/01/18 04/01/18 18:59 06:59 18:59 Output Total 300 / 300 Balance -300 / -300 Weight 76.1 kg Output: Urine Amount (Stoma) 300 / 300 con 300 / 300 Other: # Voids 2 Date of Last Bowel Movement 03/31/18 03/31/18 # Bowel Movements 1 Narrative: awake can see some to r 5/5 hx ad Objective Laboratory Results - last 24 hr 03/31/18 03/31/18 03/31/18 07:08 07:08 07:08 WBC 5.0 RBC 3.75 L Hgb 11.5 L Hct 34.9 L MCV 92.9 MCH 30.6 MCHC 33.0 RDW 14.7 Plt Count 145 L MPV 7.6 Neut % (Auto) 76.9 H Lymph % (Auto) 11.1 [place] % (Auto) 7.9 Eos % (Auto) 3.8 Baso % (Auto) 0.3 Neut # (Auto) 3.8 Lymph # (Auto) 0.6 L [place] # (Auto) 0.4 Eos # (Auto) 0.2 Baso # (Auto) 0.0 WBC Differential . Differential Comment Auto diff final PT 10.2 INR 1.0 Sodium 143 Potassium 4.2 Chloride 108 H Carbon Dioxide 27.7 Anion Gap 7 BUN 14 Creatinine 1.33 H Estimated GFR 52 L POC Glucose Random Glucose 94 Calcium 8.4 L Total Bilirubin 0.4 AST 12 L ALT 23 Alkaline Phosphatase 80 Total Protein 6.1 L Albumin 2.9 L 03/31/18 03/31/18 03/31/18 11:58 17:26 18:21 WBC RBC Hgb Hct MCV MCH MCHC RDW Plt Count MPV Neut % (Auto) Lymph % (Auto) [place] % (Auto) Eos % (Auto) Baso % (Auto) Neut # (Auto) Lymph # (Auto) [place] # (Auto) Eos # (Auto) Baso # (Auto) WBC Differential Differential Comment PT INR Sodium Potassium Chloride Carbon Dioxide Anion Gap BUN Creatinine Estimated GFR POC Glucose 96 218 H 122 H Random Glucose Calcium Total Bilirubin AST ALT Alkaline Phosphatase Total Protein Albumin 04/01/18 04/01/18 06:55 06:55 WBC RBC Hgb Hct MCV MCH MCHC RDW Plt Count MPV Neut % (Auto) Lymph % (Auto) [place] % (Auto) Eos % (Auto) Baso % (Auto) Neut # (Auto) Lymph # (Auto) [place] # (Auto) Eos # (Auto) Baso # (Auto) WBC Differential Differential Comment PT 10.9 INR 1.1 Sodium 142 Potassium 4.2 Chloride 110 H Carbon Dioxide 25.6 Anion Gap 6 BUN 20 H Creatinine 1.38 H Estimated GFR 50 L POC Glucose Random Glucose 89 Calcium 8.4 L Total Bilirubin AST ALT Alkaline Phosphatase Total Protein Albumin Microbiology 03/29/18 10:08 Urine Culture - Final Clean Catch Urine 10-50,000 cfu/mL mixed angella (probable contaminants) Review/Management - Review/Management Plan: imp left occipital cva mra neck nl vb nl echo lab [address] i think he should have loop placed and be coumadinized this will need to be cleared with onc and urology when they ok would med team plz start coumadin 03/31/18 dr rascon to take over anticoag stable neuro fall risk to right i dw no loop px poor per onc ok dc neurowise when onc decides - 04/01/18 ad could add namenda in future onc wanted to start eliquis this needs to be done improved neuro will sign off
[2018-04-01 09:46] VITALS: BP 156/78; PULSE 57; RESP 18; TEMP 98; O2SAT 96
--- NOTE | 2018-04-01 09:53 | P.PNFP ---
Subjective Interval history: Patient seen and examined this morning. Patient states that his headaches improved overnight with Tylenol and single dose of Toradol. He has no headache at this point in time. Patient suffers from urinary incontinence ever since his bladder surgery about 3 weeks ago, and a condom catheter was placed last night. Per , he wears adult diapers at night for this but still soaks the bed. She states that if she is able to take care of him at home but would like assistance. We will speak to case management to arrange for home health. His also states that his diplopia appears to be improving. He otherwise has no complaints. Per and patient, they spoke to palliative care and radiation oncology yesterday and plan to pursue aggressive radiation treatment for his bladder cancer. He is scheduled for CT simulation later today. Spoke to radiation oncology, who states that treatments and CT simulation can be pursued on an outpatient basis, and as long as patient is cleared medically he may return home. <Clara Pastor - 04/01/18 10:47> Results - Labs Result diagrams: 03/31/18 07:08 04/01/18 06:55 <Yomi Borden - 04/01/18 11:59> Abnormal lab results 03/31/18 03/31/18 04/01/18 Range/Units 17:26 18:21 06:55 Chloride 110 H (98-107) meq/L BUN 20 H (7-18) mg/dL Creatinine 1.38 H (0.60-1.30) mg/dL Estimated GFR 50 L (>89) mL/min POC Glucose 218 H 122 H (68-110) mg/dl Calcium 8.4 L (8.5-10.1) mg/dL BMP 04/01/18 06:55 Sodium 142 Potassium 4.2 Chloride 110 H Carbon Dioxide 25.6 BUN 20 H Creatinine 1.38 H Calcium 8.4 L <Yomi Borden - 04/01/18 11:59> Abnormal lab results 03/31/18 03/31/18 04/01/18 Range/Units 17:26 18:21 06:55 Chloride 110 H (98-107) meq/L BUN 20 H (7-18) mg/dL Creatinine 1.38 H (0.60-1.30) mg/dL Estimated GFR 50 L (>89) mL/min POC Glucose 218 H 122 H (68-110) mg/dl Calcium 8.4 L (8.5-10.1) mg/dL BMP 04/01/18 06:55 Sodium 142 Potassium 4.2 Chloride 110 H Carbon Dioxide 25.6 BUN 20 H Creatinine 1.38 H Calcium 8.4 L <Clara Pastor - 04/01/18 09:53> Physical Exam Vital signs: Vital Signs 03/31/18 12:28 03/31/18 13:33 03/31/18 13:52 Temperature 98.0 F Pulse Rate 95 H 72 Respiratory Rate 18 Blood Pressure 150/90 H Pulse Oximetry 98 97 03/31/18 16:00 03/31/18 16:30 03/31/18 20:00 Temperature 98.2 F 98.1 F Pulse Rate 68 64 71 Respiratory Rate 18 16 Blood Pressure 140/86 141/84 H Pulse Oximetry 96 97 04/01/18 00:00 04/01/18 04:00 04/01/18 08:00 Temperature 97.9 F 98.2 F 98 F Pulse Rate 63 66 57 L Respiratory Rate 18 20 18 Blood Pressure 143/95 H 160/88 H 156/78 H Pulse Oximetry 96 97 96 Intake & Output 03/31/18 04/01/18 04/01/18 18:59 06:59 18:59 Output Total 300 / 300 Balance -300 / -300 Weight 76.1 kg Output: Urine Amount (Stoma) 300 / 300 con 300 / 300 Other: # Voids 2 Date of Last Bowel Movement 03/31/18 03/31/18 # Bowel Movements 1 <Yomi Borden - 04/01/18 11:59> Vital Signs 03/31/18 12:28 03/31/18 13:33 03/31/18 13:52 Temperature 98.0 F Pulse Rate 95 H 72 Respiratory Rate 18 Blood Pressure 150/90 H Pulse Oximetry 98 97 03/31/18 16:00 03/31/18 16:30 03/31/18 20:00 Temperature 98.2 F 98.1 F Pulse Rate 68 64 71 Respiratory Rate 18 16 Blood Pressure 140/86 141/84 H Pulse Oximetry 96 97 04/01/18 00:00 04/01/18 04:00 04/01/18 08:00 Temperature 97.9 F 98.2 F 98 F Pulse Rate 63 66 57 L Respiratory Rate 18 Blood Pressure 143/95 H 160/88 H 156/78 H Pulse Oximetry 96 97 96 Intake & Output 03/31/18 04/01/18 04/01/18 18:59 06:59 18:59 Output Total 300 / 300 Balance -300 / -300 Weight 76.1 kg Output: Urine Amount (Stoma) 300 / 300 con 300 / 300 Other: # Voids 2 Date of Last Bowel Movement 03/31/18 03/31/18 # Bowel Movements 1 <Clara Pastor - 04/01/18 09:53> Narrative: GENERAL: Thin, pleasant white man in no acute distress, comfortable and alert in bed. SKIN: Warm and dry. HEAD: Normocephalic. EYES: No scleral icterus. No injection or drainage. EMOI. PERRLA. No nystagmus. NECK: Supple, trachea midline. No JVD or lymphadenopathy. CARDIOVASCULAR: Regular rate and rhythm without murmurs, gallops, or rubs. RESPIRATORY: Breath sounds equal bilaterally. No accessory muscle use. GASTROINTESTINAL: Abdomen soft, non-tender. : Condom cath in place draining clear yellow urine. BACK: No drainage or bleeding from nephrostomy tube site. MUSCULOSKELETAL: No cyanosis, or edema. <Clara Pastor - 04/01/18 10:47> Assessment and Plan - Assessment (1) CVA (cerebral vascular accident) Code(s): I63.9 - Cerebral infarction, unspecified Status: Acute Plan: CT brain performed in ED showed an "area of abnormal low density, new from the prior study, in the left parietal and occipital lobes measuring approximately 4.4 x 2.8 cm. The appearance favors cytotoxic edema from a subacute ischemic event." MRI/MRA brain showed "large bilobed stroke in the left occipital and parietal lobes with perfusion abnormality, but no mass effect. No evidence for aneurysm, vessel truncation, stenosis or vascular malformation." Echocardiogram showed EF of 55-60 % with mildly dilated left atrium. Rest of neuro work-up w/o abnormalities Tylenol 650 mg PO q4hr PRN for pain or headache ASA 325 mg PO qDay Atorvastatin 40 mg PO qDay Continue home divalproex 500 mg PO qDay Neurology consulted: Started on Eliquis yesterday. Will follow up as an outpatient. Cardiology consulted: Agreed with Eliquis. PT/OT rec home health (2) Cephalgia Code(s): R51 - Headache Status: Acute Plan: tylenol and cold compresses PRN. Given 1 dose of Toradol for headache overnight. CT of head last night w/o abnormalities (3) Confusion Code(s): R41.0 - Disorientation, unspecified Status: Acute Plan: Improved/resolved. (4) Bladder cancer Code(s): C67.9 - Malignant neoplasm of bladder, unspecified Status: Chronic Plan: S/p tumor removal 3 weeks ago; rec to start radiation therapy in future by outpatient oncologist Nephrostomy stent to be managed outpatient by patient's urologist. Rad onc: Discussed treatment options yesterday with patient and family. They would like to continue with aggressive radiation therapy at this time. CT simulation planned for later today. Confirmed with radiation oncology that patient can continue this workup as an outpatient, and can be discharged if medically stable. Palliative care consulted, who discussed risk and benefits of radiation therapy. Patient and family decided on aggressive radiation therapy at this time. (5) UTI (urinary tract infection) Code(s): N39.0 - Urinary tract infection, site not specified Status: Acute Plan: UA performed in the ED showed moderate occult blood, moderate leukocyte esterase , 63 RBC, 81 WBC and rare bacteria. Given 1g of rocephin in the ED. Patient also has a history of bladder cancer with internal and external ureteral stent placement. Urine culture growing mixed angella Ciprofloxacin 500 mg PO q12hr (6) Dementia Code(s): F03.90 - Unspecified dementia without behavioral disturbance Status: Chronic Plan: Will continue home donepezil. (7) Rectal pain Code(s): K62.89 - Other specified diseases of anus and rectum Status: Chronic Plan: Following w/outpatient GI doctor and oncologist for work-up Tylenol for pain. (8) Constipation Code(s): K59.00 - Constipation, unspecified Status: Chronic Plan: Resolved. (9) Nutrition, metabolism, and development symptoms Code(s): R63.8 - Other symptoms and signs concerning food and fluid intake Status: Acute Plan: Fluids: DC fluids Electrolytes: No notable electrolyte abnormalities at this time. Will continue to monitor and replete as needed. Diet: Regular diet (10) DVT prophylaxis Status: Acute Plan: Lovenox 40mg <Clara Pastor - 04/01/18 10:50> - Assessment and Plan Patient to be discharged today to home with home health. <Clara Pastor - 04/01/18 10:57> - Attending Attestation See the residents documentation for details. I saw and evaluated the patient regarding the lira portions of this evaluation and agree with the residents findings and plans as written. Parts of this note were created using [employer] voice recognition software program. While efforts were made to correct any mistakes made by this software, some mistakes, errors, and omissions may remain in the final note that were not caught when the note was originally created. Plan of care was discussed and agreed upon with the patient as specifically documented in the above note. An opportunity to ask questions with explanation was provided. Patient voiced understanding on all information reviewed and discussed. <BordenYomi - 04/01/18 11:59> <Clara Pastor B - Last Filed: 04/01/18 10:50> (1) CVA (cerebral vascular accident) Qualifiers: CVA mechanism: unspecified Qualified Code(s): I63.9 - Cerebral infarction, unspecified (2) Cephalgia Qualifiers: Headache type: unspecified Headache chronicity pattern: episodic headache Intractability: intractable Qualified Code(s): R51 - Headache (5) UTI (urinary tract infection) Qualifiers: Indwelling urinary catheter type: indwelling urethral catheter <Clara Pastor - Last Filed: 04/01/18 10:50> (1) CVA (cerebral vascular accident) Qualifiers: CVA mechanism: unspecified Qualified Code(s): I63.9 - Cerebral infarction, unspecified (2) Cephalgia Qualifiers: Headache type: unspecified Headache chronicity pattern: episodic headache Intractability: intractable Qualified Code(s): R51 - Headache (5) UTI (urinary tract infection) Qualifiers: Indwelling urinary catheter type: indwelling urethral catheter
[2018-04-01] MEDS: Lisinopril 5 MG Tablet PO SCH (10:35)
[2018-04-01] MEDS: Divalproex 500 MG ER Tablet PO SCH (10:36)
[2018-04-01] MEDS: Ciprofloxacin 500 MG Tablet PO SCH (10:41)
[2018-04-01] MEDS: Senna/Docusate Sodium 8.6/50 MG Tablet PO SCH (10:43)
--- NOTE | 2018-04-01 15:04 | P.PNCA ---
Subjective Interval history: Patient denies any CP, pressure, palpitations, dizziness, edema or SOB. Patient states that he is feeling much better and is wondering when he can go home. Medications and Allergies Allergies Allergy/AdvReac Type Severity Reaction Status Date / Time No Known Allergies Allergy Verified 03/29/18 08:13 Home Medications Medication Instructions Recorded Confirmed Type alprazolam [Xanax] 0.25 mg PO DAILY 03/17/18 03/29/18 History divalproex 500 mg PO DAILY 03/17/18 03/29/18 History donepezil 10 mg PO DAILY 03/17/18 03/29/18 History acetaminophen 500 mg PO Q6H PRN 03/29/18 03/29/18 History hydrocodone-acetaminophen 0.5 tab PO Q3H PRN 03/29/18 03/29/18 History Active Medications: Active Medications Acetaminophen (Tylenol) 650 mg PO Q4H PRN PRN Reason: Headache, pain scale 1-7 Last Admin: 03/31/18 19:09 Dose: 650 mg Al Hydroxide/Mg Hydroxide (Milk Of [place]) 30 ml PO Q12H PRN PRN Reason: Mild Constipation Apixaban (Eliquis) 5 mg PO BID [facility] Last Admin: 04/01/18 10:42 Dose: 5 mg Atorvastatin Calcium (Lipitor) 40 mg PO HS [facility] Last Admin: 03/31/18 22:03 Dose: 40 mg Bisacodyl (Dulcolax Supp) 10 mg RECTAL DAILY PRN PRN Reason: SEVERE CONSITIPATION Ciprofloxacin HCl (Cipro) 500 mg PO Q12HR [facility] Last Admin: 04/01/18 10:41 Dose: 500 mg Divalproex Sodium (Depakote Er) 500 mg PO DAILY [facility] Last Admin: 04/01/18 10:36 Dose: 500 mg Donepezil HCl (Aricept) 10 mg PO DAILY@2100 [facility] Last Admin: 03/31/18 22:03 Dose: 10 mg Enalaprilat (Vasotec Inj) 1.25 mg IV.PUSH Q4H PRN PRN Reason: SBP > 180 Last Admin: 03/30/18 08:24 Dose: 1.25 mg Ketorolac Tromethamine (Toradol Inj) 15 mg IV.PUSH Q6H PRN PRN Reason: Headache, pain scale 8-10 Stop: 04/05/18 17:25 Lactulose (Lactulose Liq) 30 ml PO DAILY PRN PRN Reason: SEVERE CONSITIPATION Last Admin: 03/30/18 10:25 Dose: 30 ml Lisinopril (Prinivil) 5 mg PO DAILY [facility] Last Admin: 04/01/18 10:35 Dose: 5 mg Ondansetron HCl (Zofran Inj) 4 mg IV.PUSH Q8H PRN PRN Reason: NAUSEA Last Admin: 03/30/18 18:23 Dose: 4 mg Polyethylene Glycol (Miralax) 17 gm PO ONCE PRN PRN Reason: CONSTIPATION Last Admin: 03/29/18 21:57 Dose: 17 gm Senna/Docusate Sodium (Lissette-Colace) 1 tab PO BID [facility] Last Admin: 04/01/18 10:43 Dose: 1 tab Sennosides (Senokot) 17.2 mg PO Q12H PRN PRN Reason: Moderate Constipation Sodium Chloride (Ns Flush) 2 ml IV.FLUSH BID [facility] Last Admin: 04/01/18 10:42 Dose: 2 ml Sodium Chloride (Ns Flush) 2 ml IV.FLUSH PRN PRN PRN Reason: FLUSH AFTER USING IV ACCESS Physical Exam Vital signs: Vital Signs 03/31/18 16:00 03/31/18 16:30 03/31/18 20:00 Temperature 98.2 F 98.1 F Pulse Rate 68 64 71 Respiratory Rate 18 16 Blood Pressure 140/86 141/84 H Pulse Oximetry 96 97 04/01/18 00:00 04/01/18 04:00 04/01/18 08:00 Temperature 97.9 F 98.2 F 98 F Pulse Rate 63 66 57 L Respiratory Rate 18 20 18 Blood Pressure 143/95 H 160/88 H 156/78 H Pulse Oximetry 96 97 96 Intake & Output 03/31/18 04/01/18 04/01/18 18:59 06:59 18:59 Output Total 300 / 300 Balance -300 / -300 Weight 76.1 kg Output: Urine Amount (Stoma) 300 / 300 con 300 / 300 Other: # Voids 2 Date of Last Bowel Movement 03/31/18 03/31/18 03/31/18 # Bowel Movements 1 - Constitutional no acute distress - Routine HEENT Exam Head: Present: normocephalic Eye: Present: PERRL ENT: Present: mucous membranes moist - Routine Neck Exam Present: full ROM - Routine Respiratory Exam Present: CTA bilaterally - Routine Cardiovascular Exam Present: S1, S2. Absent: murmur, gallop - Routine Abdominal Exam Present: normoactive bowel sounds - Routine Extremities Exam Present: full ROM, pulses intact, normal capillary refill. Absent: cyanosis, clubbing, edema - Routine Skin Exam Present: intact - Routine Neurological Exam Present: oriented X3 - Detailed Neurological Exam: Coma Scale Eye Opening: Spontaneous Verbal Response: Oriented Motor Response: Obey commands [place] Coma Scale Total: 15 - Routine Psychiatric Exam Present: normal affect Results 03/31/18 07:08 04/01/18 06:55 Cardiac Enzymes 03/31/18 Range/Units 07:08 AST 12 L (15-37) U/L Coagulation 03/31/18 04/01/18 Range/Units 07:08 06:55 PT 10.2 10.9 (9.8-11.6) sec CBC 03/31/18 Range/Units 07:08 WBC 5.0 (4.0-11.0) th/mm3 RBC 3.75 L (4.50-5.90) mil/mm3 Hgb 11.5 L (13.0-17.0) gm/dL Hct 34.9 L (39.0-51.0) % Plt Count 145 L (150-450) th/mm3 Neut # (Auto) 3.8 (1.8-7.7) th/mm3 Lymph # (Auto) 0.6 L (1.0-4.8) th/mm3 [place] # (Auto) 0.4 (0.0-0.9) th/mm3 Eos # (Auto) 0.2 (0.0-0.4) th/mm3 Baso # (Auto) 0.0 (0.0-0.2) th/mm3 Comprehensive Metabolic Panel 03/31/18 04/01/18 Range/Units 07:08 06:55 Sodium 143 142 (136-145) meq/L Potassium 4.2 4.2 (3.5-5.1) meq/L Chloride 108 H 110 H (98-107) meq/L Carbon Dioxide 27.7 25.6 (21.0-32.0) meq/L BUN 14 20 H (7-18) mg/dL Creatinine 1.33 H 1.38 H (0.60-1.30) mg/dL Calcium 8.4 L 8.4 L (8.5-10.1) mg/dL AST 12 L (15-37) U/L ALT 23 (12-78) U/L Alkaline Phosphatase 80 (45-117) U/L Total Protein 6.1 L (6.4-8.2) g/dL Albumin 2.9 L (3.4-5.0) g/dL Intake and Output 03/31/18 04/01/18 04/01/18 22:59 06:59 14:59 Output Total 300 / 300 Balance -300 / -300 Output: Urine Amount (Stoma) 300 / 300 con 300 / 300 Other: # Voids 2 Date of Last Bowel Movement 03/31/18 03/31/18 Weight 76.1 kg - Imaging and Cardiology Imaging: Impressions Head CT 03/31/18 05:10 CONCLUSION: 1. Slowly evolving subacute left parieto-occipital infarct. 2. No new infarct demonstrated. No bleed, mass effect or other acute complication. . Assessment and Plan - Assessment (1) CVA (cerebral vascular accident) Code(s): I63.9 - Cerebral infarction, unspecified Status: Acute (2) Obstructive uropathy Code(s): N13.9 - Obstructive and reflux uropathy, unspecified Status: Acute (3) Chronic kidney disease Code(s): N18.9 - Chronic kidney disease, unspecified Status: Acute (4) Cephalgia Code(s): R51 - Headache Status: Acute (5) Confusion Code(s): R41.0 - Disorientation, unspecified Status: Acute (6) Bladder cancer Code(s): C67.9 - Malignant neoplasm of bladder, unspecified Status: Chronic (7) UTI (urinary tract infection) Code(s): N39.0 - Urinary tract infection, site not specified Status: Acute (8) Dementia Code(s): F03.90 - Unspecified dementia without behavioral disturbance Status: Chronic - Plan Patient in SR on monitor, we will continue to monitor the patient from cardiac standpoint. Continue Eliquis for anticoagulation. Patient is cleared for discharge from a cardiac standpoint. The patient was seen and evaluated by Dr. Juan who participated in care, management and decision-making. - Attending Attestation Patient seen and examined. I reviewed and agree with the evaluation and plan as presented. Tele with SR. Scott Miller. He remains stable from cardiac standpoint. DC home as planned. (1) CVA (cerebral vascular accident) Qualifiers: CVA mechanism: unspecified Qualified Code(s): I63.9 - Cerebral infarction, unspecified (3) Chronic kidney disease Qualifiers: Chronic kidney disease stage: unspecified stage Qualified Code(s): N18.9 - Chronic kidney disease, unspecified (4) Cephalgia Qualifiers: Headache type: unspecified Headache chronicity pattern: episodic headache Intractability: intractable Qualified Code(s): R51 - Headache (7) UTI (urinary tract infection) Qualifiers: Indwelling urinary catheter type: indwelling urethral catheter
--- NOTE | 2018-04-02 20:29 | P.DS ---
Date of admission: 03/29/18 10:26 Primary care physician: Mukund Moody Brief History from admission: 77-year-old male with history of bladder cancer, vascular migraines, and dementia presented to the ED for a constant, dull headache and worsening confusion for 3 days. Per spouse, he sometimes complains of stabbing pain but otherwise states that headache is diffuse. He is also noted blurry vision and vertiginous dizziness, stating he has trouble walking. He states that sometimes he will walk into [place] because he feels that his "depth perception is off". He states that he feels stable with standing and walking and denies change in dizziness upon standing. Denies recent falls or head injury. He states that he is no longer able to read text from the TV or books due to this blurry vision. 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 Denies problems with speech, swallowing, facial drop, or focal weakness. Denies fever, chills, vomiting, numbness or tingling. Denies history of stroke, DVT, or PE. Per spouse patient has a history of dementia with waxing and waning orientation. Today he is disoriented to year, stating that it is 2023, but is otherwise oriented to self, place and day of the week. She states that he is more confused upon waking, sometimes having trouble with recent memory including, forgetting the events of the last couple days. She states that he continues to remain oriented to self and is able to recognize her without issue. He has a history of vascular migraines, which was diagnosed about 1-1/2 years ago, for which he sees neurologist, Dr. Chaudhry. Since being placed on table prophylaxis in April 2017, he no longer experiences these migraines. Per spouse, these episodes consist of diffuse headache, significant disorientation, and states that sometimes his "eyes roll into the back of his head and he will fall". Also admits to these headaches being worse with rainy weather, and usually experiences relief with Tylenol. He has been seeing Dr. Madden for his recently diagnosed bladder cancer 3 weeks ago, status post tumor resection and subsequent internal and external urostomy tube placement. Per after undergoing bladder surgery about 3 weeks ago, he has been experiencing generalized weakness, decreased appetite, and lost about 10 pounds. He has had some urinary incontinence. External urostomy bag removed after patient started passing urine on his own. Denies active bleeding , drainage, pain, or erythema of the urostomy site. He has a history of UTI about 6 weeks ago for which he took 5 days of ciprofloxacin. He also complains of rectal pain, especially when sitting, or having a bowel movement. Last bowel movement was 3 days ago, small, hard stools passed. No blood noticed. This is has been worked up by GI, Dr. Goode, and Oncologist, Dr. Madden, who state that this is likely due to an enlarged prostate. He is currently on a regimen of stool softeners and Metamucil at home, with minimal effect. Past medical history: Vascular migraines Meniere's disease Dementia Bladder Cancer Lymphoma 9 years ago, in remission Unspecified heart defect (possible ASD or VSD) Family medical history: Non-contributory Social history: Former smoker: < 1/2 week for 30 years, quit in 1989 No ETOH No other drug use PCP: Dr. Davis Oncologist: Dr. Madden Urologist: Dr. Santiago GI: Dr. Goode, seen for pain in rectum Neurologist: Dr. Chaudhry DS: Diagnosis - Discharge Diagnosis (1) CVA (cerebral vascular accident) Status: Acute (2) Cephalgia Status: Acute (3) Confusion Status: Acute (4) Bladder cancer Status: Chronic (5) UTI (urinary tract infection) Status: Acute (6) Dementia Status: Chronic (7) Rectal pain Status: Chronic (8) Constipation Status: Chronic (9) Nutrition, metabolism, and development symptoms Status: Acute (10) DVT prophylaxis Status: Acute DS: Medications - Discharge Medications Prescriptions: ciprofloxacin HCl 500 mg PO Q12HR #7 tab DS: Summary Hospital Course: This is a 77-year-old male with history of recently diagnosed bladder cancer, vascular migraines, and dementia who was admitted for headache and worsening confusion, found to have a subacute ischemic stroke affecting the left parietal and occipital lobes. Stroke workup included echocardiogram, EKG, ultrasound of the carotids, and MRA of carotids which were all within normal limits. MRI/MRA of the brain showed "large bilobed stroke in the left occipital and parietal lobes with significant perfusion abnormality, but no significant mass-effect. No evidence for aneurysm, vessel truncation or stenosis, and no evidence for vascular malformation." Neurology was consulted who reviewed initial labs and imaging and recommended cardio consult for possible loop recorder placement and to initiate anticoagulation with Coumadin. After discussing this case with cardiology and the patient's urologist, it was recommended that patient be put on anticoagulation with Eliquis. Cardiology stated that because he would be receiving anticoagulation, loop recorder was unnecessary at this time. His neurological deficits, including diplopia, unstable gait and decreased coordination, all improved over the course of the hospital stay. While in the hospital, palliative care and radiation oncology were also consulted. Due to recent diagnosis of bladder cancer with subsequent to surgery , patient was interested in aggressive radiation treatment, as previously recommended by his urologist. Patient was set up with oncologist, Dr. Gandhi, who set up CT simulation on discharge and planned to start outpatient radiation therapy. Patient was also diagnosed with a UTI while in the hospital and was discharged back home with a prescription for ciprofloxacin for 7 days, for a total treatment time of 10 days. Patient was discharged to home with home health care in stable condition following improvement of his headaches, with recommendation for outpatient follow-up with neurology, urology, radiation oncology and cardiology. - Time Spent with Patient Total time spent providing and/or coordinating discharge services: Greater than 30 minutes - Quality: VTE Deep Vein Thrombosis/Pulmonary Embolism Present on Admission: No Results Procedures completed during hospitalization: Echocardiogram - Impressions ITS Impressions Carotid Doppler Study 03/29/18 00:00 CONCLUSION: 1. Right Internal Carotid Artery: No significant stenosis or atherosclerotic plaque is visualized. 2. Left Internal Carotid Artery: No significant stenosis or atherosclerotic plaque is visualized. Head MRA 03/29/18 00:00 CONCLUSION: Negative MRA [place] ([place]) non contrast. Neck MRA 03/29/18 00:00 CONCLUSION: 1. Unremarkable MRA neck. Percent stenosis is calculated using the diameter of the stenotic region over the diameter of the normal distal internal carotid artery Abdomen X-Ray 03/29/18 08:30 CONCLUSION: No acute abnormality is identified. Left ureteral stent and presumed percutaneous nephrostomy tube are present. Head MRI 03/29/18 11:22 CONCLUSION: 1. Large bilobed stroke in the left occipital and parietal lobes. Significant perfusion abnormality. At this point no significant mass effect. Head CT 03/31/18 05:10 CONCLUSION: 1. Slowly evolving subacute left parieto-occipital infarct. 2. No new infarct demonstrated. No bleed, mass effect or other acute complication. . Discharge Plan - Discharge Disposition Patient Disposition: W/Home Health Service - Discharge Condition Condition: Stable - Discharge Order Discharge Orders: Discharge Order (Routine); Ordered 04/01/18 Ordered By: Clara Pastor - Discharge Details Anticipated Discharge Date: 03/31/18 Discharge Comment: DC after seen by palliative and Rad Onc - Physicians Team Primary Care Provider: Mukund Moody Attending Provider: Yomi Borden Other Providers: Saeid Diaz MD ; Edison Gamez MD ; Ajay Juan MD ; Nathaniel Madden MD ; Jaylene Garnett MD ; Ernst Gandhi MD
== END 2018-04-01 16:10 | disposition home health service (06) ==
LOC: NEPC 07:47 → NEDA 10:26 → N05 12:25
PROVIDERS: ADMIT Family Medicine; ATTEND Family Medicine
DX: H54.62 Unqualified visual loss, left eye, normal vision right eye; F03.90 Unspecified dementia, unspecified severity, without behavioral disturbance, psychotic disturbance, mood disturbance, and anxiety; N13.8 Other obstructive and reflux uropathy; Z85.72 Personal history of non-Hodgkin lymphomas; I63.9 Cerebral infarction, unspecified; R51 Headache; N40.1 Benign prostatic hyperplasia with lower urinary tract symptoms; H81.09 Meniere's disease, unspecified ear; K59.00 Constipation, unspecified; Z87.891 Personal history of nicotine dependence; K62.89 Other specified diseases of anus and rectum; G43.809 Other migraine, not intractable, without status migrainosus; C67.8 Malignant neoplasm of overlapping sites of bladder; Z87.440 Personal history of urinary (tract) infections; N18.9 Chronic kidney disease, unspecified; R41.0 Disorientation, unspecified